=== PATIENT | female | born 1955 | race Caucasian/White ===

== ENCOUNTER → 2020-10-23 | Outpatient (CLI) | payer SELFPAY ==
--- NOTE | 2020-10-23 15:54 | XR ---
EXAMINATION TYPE: XR foot complete LT DATE OF EXAM: 10/23/2020 COMPARISON: NONE HISTORY: Pain TECHNIQUE: Three views are submitted. FINDINGS: The osseous structures are intact. There is no acute fracture or dislocation. There is narrowing o f all MTP joints with diffuse osteopenia. Narrowing of the tarsometatarsal joints noted. Calcaneal sp urs noted. IMPRESSION: 1. No acute fracture or dislocation. If symptoms persist, follow-up exam in 7 to 10 days could be ob tained. 2. Arthropathy. 3. Calcaneal spurs.
== END | disposition home or self-care (01) ==
LOC: RADXRMAIN 14:18
PROVIDERS: ATTEND Internal Medicine
DX: M77.32 Calcaneal spur, left foot (principal); M12.9 Arthropathy, unspecified
CPT/HCPCS: 84443

== ENCOUNTER → 2020-11-07 | Outpatient (CLI) | payer SELFPAY ==
[2020-11-07 20:56] LABS: Basophils # (A) 0.03 X 10*3/uL (0.00-0.10); Basophils % (A) 0.4 %; Eosinophils # (A) 0.27 X 10*3/uL (0.04-0.35); Eosinophils % (A) 3.4 %; HCT 40.3 % (37.2-46.3); HGB 12.5 g/dL (12.0-15.0); Lymphocytes # (A) 2.69 X 10*3/uL (0.90-5.00); Lymphocytes % (A) 33.4 %; MCH 28.6 pg (27.0-32.0); MCV 92.2 fL (80.0-97.0); Mean Platelet Volume 10.5 fL (9.5-12.2); Monocytes # (A) 0.67 X 10*3/uL (0.20-1.00); Monocytes % (A) 8.3 %; Neutrophils # (A) 4.37 X 10*3/uL (1.80-7.70); Neutrophils % (A) 54.3 %; Platelet Count 181 X 10*3/uL (140-440); RBC 4.37 X 10*6/uL (4.10-5.20); RDW 13.4 % (11.5-14.5); WBC 8.05 X 10*3/uL (4.50-10.00)
[2020-11-07 23:42] LABS: Hemoglobin A1C 6.5 % (4.0-6.0)
== END | disposition home or self-care (01) ==
LOC: LABT 14:14
PROVIDERS: ATTEND Internal Medicine
DX: E03.9 Hypothyroidism, unspecified (principal); R73.9 Hyperglycemia, unspecified
CPT/HCPCS: 36415; 83036; 84439; 85025

== ENCOUNTER 2020-11-08 12:37 | Emergency (ER) | payer OTHER ==
[2020-11-08 12:49] VITALS: BP 172/75; PULSE 53; RESP 17; TEMP 98.3
[2020-11-08] MEDS ORDERED: KETOROLAC 15 MG/ML 1 ML VIAL IM STA (13:11)
--- NOTE | 2020-11-08 14:00 | XR ---
Left foot HISTORY: Trauma and pain 3 views of the left foot correlated prior exam 10/23/2020 Lucency is present at the proximal fifth metatarsal, nondisplaced fracture is present. There is no di slocation. Soft tissue swelling is present. There is a plantar calcaneal spur. IMPRESSION: Proximal fifth metatarsal fracture.
--- NOTE | 2020-11-08 14:15 | ED ---
Lower Extremity Injury HPI - General Chief Complaint: Extremity Injury, Lower Stated Complaint: L foot injury Time Seen by Provider: 11/08/20 13:06 Source: patient, RN notes reviewed Mode of arrival: wheelchair Limitations: no limitations - History of Present Illness Initial Comments: Patient is a 65-year-old female that presents to emergency department complaining of left foot pain. She notes that she stepped in a hole while walking outside of her house in rolled her ankle. She notes that she is having pain on the lateral aspect over the third and fourth and fifth metatarsals of her foot. She denied any other symptoms or complaints. She was a well- appearing 65-year-old female no apparent distress. She noted that she did have full sensation and feeling in her left foot. She denied any decreased strength just decreased range of motion secondary to pain. She denied any chest pain shortness of breath headache nausea vomiting diarrhea constipation fever fatigue chills. - Related Data Home Medications Medication Instructions Recorded Confirmed Butalb/APAP/Caff 50-325-40Mg 1 tab PO Q4H PRN 10/11/15 10/11/15 [Fioricet 50-325-40] Cholecalciferol [Vitamin D3] 1,000 unit PO DAILY 10/11/15 10/11/15 Ibuprofen [Advil] 400 mg PO Q8HR PRN 10/11/15 10/11/15 Levothyroxine Sodium [Synthroid] 150 mcg PO DAILY 10/11/15 10/11/15 Meloxicam [Mobic] 7.5 mg PO DAILY 10/11/15 10/11/15 Omeprazole 20 mg PO HS 10/11/15 10/11/15 Sertraline HCl [Zoloft] 150 mg PO HS 10/11/15 10/11/15 Topiramate [Topamax] 25 mg PO BID 10/11/15 10/11/15 Previous Rx's Medication Instructions Recorded HYDROcodone/APAP 5-325MG [[place] 1 tab PO Q6HR PRN #16 tab 10/11/15 5-325] Ibuprofen [Motrin] 800 mg PO Q8HR PRN #21 tab 10/11/15 Ondansetron HCl [Zofran] 4 mg PO Q8HR PRN #12 tab 10/11/15 Tamsulosin HCl [Flomax] 0.4 mg PO DAILY #14 cap 10/11/15 Allergies Allergy/AdvReac Type Severity Reaction Status Date / Time No Known Allergies Allergy Verified 11/08/20 12:49 Review of Systems ROS Statement: Those systems with pertinent positive or pertinent negative responses have been documented in the HPI. ROS Other: All systems not noted in ROS Statement are negative. Past Medical History Past Medical History: Thyroid Disorder Additional Past Medical History / Comment(s): kidney stones, diverticulitis, migraines History of Any Multi-Drug Resistant Organisms: None Reported Past Surgical History: Cholecystectomy, Hysterectomy Additional Past Surgical History / Comment(s): left cataract, left breast biopsy, ectopic Past Psychological History: Depression Smoking Status: Former smoker Past Alcohol Use History: Rare Past Drug Use History: None Reported General Exam Limitations: no limitations General appearance: alert, in no apparent distress Head exam: Present: atraumatic, normocephalic, normal inspection Eye exam: Present: normal appearance, PERRL, EOMI. Absent: scleral icterus, conjunctival injection, periorbital swelling Neck exam: Present: normal inspection Respiratory exam: Present: normal lung sounds bilaterally. Absent: respiratory distress, wheezes, rales, rhonchi, stridor Cardiovascular Exam: Present: regular rate, normal rhythm, normal heart sounds. Absent: systolic murmur, diastolic murmur, rubs, gallop, clicks Left Foot/Toe exam: Present: normal inspection, tenderness (Over the fourth and fifth metatarsals.). Absent: full ROM (Secondary to pain), swelling, abrasion, laceration, ecchymosis, deformity, crepitus Neurological exam: Present: alert, oriented X3 Psychiatric exam: Present: normal affect, normal mood Skin exam: Present: warm, dry, intact, normal color. Absent: rash Course Vital Signs 11/08/20 12:39 Temperature 98.3 F Pulse Rate 53 L Respiratory 17 Rate Blood Pressure 172/75 O2 Sat by Pulse 100 Oximetry Medical Decision Making - Medical Decision Making 65-year-old female complaining of left foot pain after stepping in a hole and injuring it. X-ray of the left foot, 15 mg of Toradol ordered. X-ray of the foot shows a nondisplaced fracture of the fifth metatarsal small end. Patient be splinted and given crutches. Case discussed with Dr. Guillen, patient can follow-up with orthopedics in the next several days. - Radiology Data Radiology results: report reviewed, image reviewed X-ray of the left foot: Proximal fifth metatarsal fracture Disposition Clinical Impression: Fracture of fifth metatarsal bone of left foot Disposition: HOME SELF-CARE Condition: Stable Instructions (If sedation given, give patient instructions): Foot Fracture in Adults (ED) Additional Instructions: Please return to the Emergency Department if symptoms worsen or any other concerns. Follow-up with orthopedics in 1-2 days. Nonweightbearing. Keep splint on at the thumb with orthopedics. Is patient prescribed a controlled substance at d/c from ED?: No Referrals: Harish Ruth MD [Primary Care Provider] - 1-2 days Time of Disposition: 14:15
== END 2020-11-08 14:57 | disposition home or self-care (01) ==
LOC: EC 12:37
DX: S92.355A Nondisplaced fracture of fifth metatarsal bone, left foot, initial encounter for closed fracture (principal); F32.9 Major depressive disorder, single episode, unspecified; Z79.1 Long term (current) use of non-steroidal anti-inflammatories (NSAID); Z79.890 Hormone replacement therapy; Z79.899 Other long term (current) drug therapy; Z87.891 Personal history of nicotine dependence; X50.1XXA Overexertion from prolonged static or awkward postures, initial encounter; Y93.01 Activity, walking, marching and hiking
CPT/HCPCS: 73630; 99283; 96372; J1885

== ENCOUNTER → 2020-11-21 | Outpatient (CLI) | payer SELFPAY ==
[2020-11-22 04:15] LABS: African American GFR (CKD) 106.9 (60.0-200.0); Albumin 4.3 g/dL (3.80-4.90); Albumin/Globulin Ratio 1.72 (1.60-3.17); Anion Gap 7.7 mmol/L (4.00-12.00); BUN/Creat Ratio 37.14 Ratio (12.00-20.00); Calcium 9.7 mg/dL (8.7-10.3); Carbon Dioxide 29.3 mmol/L (21.6-31.8); Chol/HDL Ratio 4.55; Globulin 2.5 g/dL (1.6-3.3); LDL Cholesterol,Calculated 110.8 mg/dL (0.0-131.0); Non-African American GFR(CKD) 92.2 (60.0-200.0); Potassium 4.8 mmol/L (3.5-5.5); Total Bilirubin 0.4 mg/dL (0.2-1.2); Total Protein 6.8 g/dL (6.2-8.2); VLDL Calculation 63.2 mg/dL (5.00-40.00)
== END | disposition home or self-care (01) ==
LOC: LABWHC1 09:24
PROVIDERS: ATTEND Internal Medicine
DX: S92.352A Displaced fracture of fifth metatarsal bone, left foot, initial encounter for closed fracture (principal); E03.9 Hypothyroidism, unspecified; R73.9 Hyperglycemia, unspecified; X58.XXXA Exposure to other specified factors, initial encounter
CPT/HCPCS: 36415; 80053; 80061; 82306

== ENCOUNTER 2020-12-12 10:37 | Emergency (ER) | payer OTHER ==
[2020-12-12 10:45] VITALS: RESP 16; TEMP 98.2
[2020-12-12] MEDS ORDERED: MORPHINE SULFATE 4 MG/ML SYRINGE IVP STA (10:56)
--- NOTE | 2020-12-12 11:37 | XR ---
EXAMINATION TYPE: XR knee 4V RT DATE OF EXAM: 12/12/2020 COMPARISON: NONE HISTORY: Pain TECHNIQUE: Three views are submitted. FINDINGS: Diffuse osteopenia with depressed intra-articular lateral tibial plateau fracture. Arthropathy of the tricompartment spaces. Lipohemarthrosis involving the suprapatellar bursa. Well-corticated density a long the upper margin of the patella. Findings suspicious for a linear hairline fracture involving th e head of the fibula. IMPRESSION: 1. Intra-articular lateral tibial plateau depressed fracture with displacement. 2. Linear hairline fracture through the head of the fibula.
--- NOTE | 2020-12-12 11:40 | ED ---
Lower Extremity Injury HPI - General Chief Complaint: Extremity Injury, Lower Stated Complaint: Fall, Knee Injury Time Seen by Provider: 12/12/20 10:46 Source: patient, RN notes reviewed Mode of arrival: ambulatory Limitations: no limitations - History of Present Illness Initial Comments: Patient is a 65-year-old female that presents to emergency department complaining of right knee pain. EMS. She notes that she is here 45 weeks ago for a left foot Aquino fracture. She has been in a walking boot since then. She notes that today while stepping out of her door wall she missed the edge of the step fell down one step injuring her right knee. She notes that she does have a history of right knee fractures. She notes this feels very similar. She notes her pain was approximate 7-8 out of 10 with no relief. She did get 6 g of morphine from EMS. Patient was otherwise well-appearing. She denied any chest pain shortness breath headache nausea vomiting diarrhea constipation fever fatigue chills. - Related Data Home Medications Medication Instructions Recorded Confirmed Butalb/APAP/Caff 50-325-40Mg 1 tab PO Q4H PRN 10/11/15 10/11/15 [Fioricet 50-325-40] Cholecalciferol [Vitamin D3] 1,000 unit PO DAILY 10/11/15 10/11/15 Ibuprofen [Advil] 400 mg PO Q8HR PRN 10/11/15 10/11/15 Levothyroxine Sodium [Synthroid] 150 mcg PO DAILY 10/11/15 10/11/15 Meloxicam [Mobic] 7.5 mg PO DAILY 10/11/15 10/11/15 Omeprazole 20 mg PO HS 10/11/15 10/11/15 Sertraline HCl [Zoloft] 150 mg PO HS 10/11/15 10/11/15 Topiramate [Topamax] 25 mg PO BID 10/11/15 10/11/15 Previous Rx's Medication Instructions Recorded HYDROcodone/APAP 5-325MG [[place] 1 tab PO Q6HR PRN #16 tab 10/11/15 5-325] Ibuprofen [Motrin] 800 mg PO Q8HR PRN #21 tab 10/11/15 Ondansetron HCl [Zofran] 4 mg PO Q8HR PRN #12 tab 10/11/15 Tamsulosin HCl [Flomax] 0.4 mg PO DAILY #14 cap 10/11/15 Allergies Allergy/AdvReac Type Severity Reaction Status Date / Time No Known Allergies Allergy Verified 12/12/20 10:45 Review of Systems ROS Statement: Those systems with pertinent positive or pertinent negative responses have been documented in the HPI. ROS Other: All systems not noted in ROS Statement are negative. Past Medical History Past Medical History: Thyroid Disorder Additional Past Medical History / Comment(s): kidney stones, diverticulitis, migraines History of Any Multi-Drug Resistant Organisms: None Reported Past Surgical History: Cholecystectomy, Hysterectomy Additional Past Surgical History / Comment(s): left cataract, left breast biopsy, ectopic Past Psychological History: Depression Smoking Status: Former smoker Past Alcohol Use History: Rare Past Drug Use History: None Reported General Exam Limitations: no limitations General appearance: alert, in no apparent distress Head exam: Present: atraumatic, normocephalic, normal inspection Eye exam: Present: normal appearance, PERRL, EOMI. Absent: scleral icterus, conjunctival injection, periorbital swelling ENT exam: Present: normal exam, mucous membranes moist Neck exam: Present: normal inspection Respiratory exam: Present: normal lung sounds bilaterally. Absent: respiratory distress, wheezes, rales, rhonchi, stridor Cardiovascular Exam: Present: regular rate, normal rhythm, normal heart sounds. Absent: systolic murmur, diastolic murmur, rubs, gallop, clicks Right Knee exam: Present: normal inspection, tenderness (Generalized throughout mostly on the superior and bilateral aspects.), pain/laxity with valgus. Absent: full ROM (Secondary to pain), swelling, abrasion, laceration, ecchymosis, deformity, crepitus, dislocation, erythema, effusion, pain w/ pronation/supination Neurological exam: Present: alert, oriented X3 Psychiatric exam: Present: normal affect, normal mood Skin exam: Present: warm, dry, intact, normal color. Absent: rash Course Vital Signs 12/12/20 10:39 Temperature 98.2 F Pulse Rate 54 L Respiratory 16 Rate Blood Pressure 179/72 O2 Sat by Pulse 95 Oximetry Medical Decision Making - Medical Decision Making 65-year-old female with a right knee injury after falling down one step. X-ray right knee, 4 mg of morphine ordered. X-ray shows a intra-articular tibial plateau and a hairline linear fibular fracture of the right knee. Jim Oliver's physician psychiatric nursing assistant was consulted and noted that patient can either discharge home with follow-up outpatient with a knee immobilizer and crutches or standing the hospital. Patient wishes to discharge home with knee immobilizer and crutches as she takes care of her mother at home. Tylenol 3 starter pack will be given. Case discussed with Dr. Guillen, patient discharge home. - Radiology Data Radiology results: report reviewed, image reviewed X-ray right knee: Intra-articular lateral tibial plateau depressed fracture with displacement. Linear hairline fracture through the head of the fibula. Disposition Clinical Impression: Closed fracture of lateral portion of right tibial plateau, Fracture of head of right fibula Disposition: HOME SELF-CARE Condition: Stable Instructions (If sedation given, give patient instructions): Leg Fracture (ED) Additional Instructions: Please return to the Emergency Department if symptoms worsen or any other concerns. Follow-up with primary care 1-2 days. Follow-up with orthopedics in the next day. Nonweightbearing, use crutches. Take off his prescribed. Can take Motrin as needed. Is patient prescribed a controlled substance at d/c from ED?: No Referrals: Harish Ruth MD [Primary Care Provider] - 1-2 days Fili Oliver DO [Doctor of Osteopathic Medicine] - 1-2 days Time of Disposition: 12:23
[2020-12-12] MEDS ORDERED: ACET/COD 300 MG/30 MG STARTER PACK 6 TAB BTL PO STA (12:21)
--- NOTE | 2020-12-12 13:46 | CT ---
EXAMINATION TYPE: CT knee RT wo con DATE OF EXAM: 12/12/2020 COMPARISON: X-ray 12/12/2020 HISTORY: Tiial plateau fracture., Pain post fall. CT DLP: 126.6 mGycm Automated exposure control for dose reduction was used. FINDINGS: Lipohemarthrosis suprapatellar bursa and soft tissue edema noted. There is a depressed lateral tibial plateau fracture measuring about 6 mm and depression. Appears to be extension from the articular surface and of the proximal diaphysis of the tibia. Appears to be a d egree of comminution at the articular surface with a fragment seen on the sagittal view to be displac ed posteriorly. Arthropathy of the tricompartment spaces noted and there appears to be a hairline fracture through th e head and neck of the fibula with minimal displacement. IMPRESSION: 1. Depressed lateral tibial plateau displaced fracture 2. Hairline fracture head of the fibula
[2020-12-12 14:14] VITALS: BP 154/89; PULSE 64
== END 2020-12-12 14:15 | disposition home or self-care (01) ==
LOC: EC 10:37
DX: S82.121A Displaced fracture of lateral condyle of right tibia, initial encounter for closed fracture (principal); S82.831A Other fracture of upper and lower end of right fibula, initial encounter for closed fracture; E07.9 Disorder of thyroid, unspecified; F32.9 Major depressive disorder, single episode, unspecified; Z87.442 Personal history of urinary calculi; Z90.49 Acquired absence of other specified parts of digestive tract; Z90.710 Acquired absence of both cervix and uterus; Z87.891 Personal history of nicotine dependence; W10.8XXA Fall (on) (from) other stairs and steps, initial encounter
CPT/HCPCS: 99284; 96374; 73564; 73700; L1830; J2270

== ENCOUNTER → 2020-12-14 | Outpatient (CLI) | payer SELFPAY ==
--- NOTE | 2020-12-14 13:32 | US ---
EXAMINATION TYPE: US venous doppler duplex LE RT DATE OF EXAM: 12/14/2020 1:10 PM COMPARISON: NONE CLINICAL HISTORY: I80.9 PHLEBITIS AND THROMBOPHLEBITIS OF UNSPECIFIED SITE. SIDE PERFORMED: Right TECHNIQUE: The lower extremity deep venous system is examined utilizing real time linear array sonog aisha with graded compression, doppler sonography and color-flow sonography. VESSELS IMAGED: Common Femoral Vein Deep Femoral Vein Greater Saphenous Vein * Femoral Vein Popliteal Vein Small Saphenous Vein * Proximal Calf Veins (* superficial vessels) Right Leg: Negative for DVT IMPRESSION: Grayscale, color doppler, spectral doppler imaging performed of the deep veins of the lo wer extremities. There is normal flow, compressibility, vascular waveforms.
== END | disposition home or self-care (01) ==
LOC: RADUSWWP 12:40
PROVIDERS: ATTEND Orthopaedic Surgery
DX: I80.9 Phlebitis and thrombophlebitis of unspecified site (principal)

== ENCOUNTER → 2021-05-09 | Outpatient (CLI) | payer OTHER ==
[2021-05-09 20:03] LABS: T4, Free (Free Thyroxine) 1.18 ng/dL (0.800-1.800)
== END | disposition home or self-care (01) ==
LOC: LABWHC1 13:14
PROVIDERS: ATTEND Internal Medicine
DX: Z01.812 Encounter for preprocedural laboratory examination (principal); E11.9 Type 2 diabetes mellitus without complications; E03.9 Hypothyroidism, unspecified
CPT/HCPCS: 36415; 82043; 82570; 83036; 84439; 84443; 87086

== ENCOUNTER → 2021-05-09 | Outpatient (CLI) | payer OTHER ==
[2021-05-09 14:24] LABS: INR 0.9 (<1.2); Partial Thromboplastin Time 24.3 sec (22.0-30.0); Prothrombin Time 10.4 sec (9.0-12.0)
[2021-05-09 15:24] LABS: Appearance,Urine Clear (Clear); Bacteria,Urine Rare /hpf; Bilirubin,Urine Negative (Negative); Blood,Urine Small (Negative); Calcium Oxalate Crystals,Urine Occasional /hpf; Color,Urine Yellow; Glucose,Urine (UA) Negative (Negative); Ketones,Urine Negative (Negative); Leukocyte Esterase,Urine Moderate (Negative); Mucus,Urine Rare /hpf; Nitrite,Urine Negative (Negative); PH, Urine 5.5 (5.0-8.0); Protein,Urine Trace (Negative); RBC,Urine <1 /hpf (0-5); Specific Gravity,Urine 1.029 (1.001-1.035); Squamous Epithelial Cell,Urine <1 /hpf (0-4); Urobilinogen,Urine <2.0 mg/dL (<2.0); WBC,Urine 5 /hpf (0-5)
[2021-05-09 18:07] LABS: Basophils # (A) 0.03 X 10*3/uL (0.00-0.10); Basophils % (A) 0.4 %; Eosinophils # (A) 0.19 X 10*3/uL (0.04-0.35); Eosinophils % (A) 2.4 %; HCT 40.7 % (37.2-46.3); HGB 12.4 g/dL (12.0-15.0); Immature Grans, Automated 0.4 %; Lymphocytes # (A) 2.72 X 10*3/uL (0.90-5.00); Lymphocytes % (A) 34.4 %; MCH 27.7 pg (27.0-32.0); MCHC 30.5 g/dL (32.0-37.0); MCV 91.1 fL (80.0-97.0); Mean Platelet Volume 10.2 fL (9.5-12.2); Monocytes # (A) 0.49 X 10*3/uL (0.20-1.00); Monocytes % (A) 6.2 %; NRBC Per 100 WBC 0 /100 WBCS (0.0-0.0); Neutrophils # (A) 4.45 X 10*3/uL (1.80-7.70); Neutrophils % (A) 56.2 %; Platelet Count 196 X 10*3/uL (140-440); RBC 4.47 X 10*6/uL (4.10-5.20); RDW 14.3 % (11.5-14.5); WBC 7.91 X 10*3/uL (4.50-10.00)
[2021-05-09 18:16] LABS: Albumin 4.5 g/dL (3.8-4.9); Albumin/Globulin Ratio 1.76 (1.60-3.17); Anion Gap 11.2 mmol/L (10.00-18.00); BUN/Creat Ratio 31.52 Ratio (12.00-20.00); Blood Urea Nitrogen 23.7 mg/dL (9.0-27.0); Calcium 9.6 mg/dL (8.7-10.3); Carbon Dioxide 24.1 mmol/L (20.0-27.5); Globulin 2.5 g/dL (1.6-3.3); Non-African American GFR(CKD) 84.6 (60.0-200.0); Total Bilirubin 0.2 mg/dL (0.30-1.20)
== END | disposition home or self-care (01) ==
LOC: LABWHC1 13:10
PROVIDERS: ATTEND Orthopaedic Surgery
DX: Z01.812 Encounter for preprocedural laboratory examination (principal); M17.11 Unilateral primary osteoarthritis, right knee
CPT/HCPCS: 80053; 81001; 85025; 85610; 85730; 87070

== ENCOUNTER 2021-05-24 06:00 | Day surgery (SDC) | payer OTHER ==
[2021-05-21 13:28] VITALS: BMI 31.6
[~2021-05-24 06:00] MED LIST: ACETAMINOPHEN TAB 500 MG TAB PO PRN; DEXAMETHASONE SOD PHOSPHATE 10 MG/ML 1 ML VIAL IV PRN; DOCUSATE 100 MG CAP PO PRN; FAMOTIDINE 20 MG/2 ML VIAL IVP PRN; KETOROLAC 15 MG/ML 1 ML VIAL IVP PRN; LACTATED RINGERS 1,000 ML IV SCH; MIDAZOLAM 2 MG/2 ML VIAL IV PRN; ONDANSETRON 4 MG/2 ML VIAL IVP PRN; TRANEXAMIC ACID IN NACL,ISO-OS 1,000 MG in SALINE 1 100ML.BAG IVPB PRN; oxyCODONE ER 10 MG TAB.ER.12H PO PRN
[2021-05-24 06:30] VITALS: RESP 18; TEMP 97
[2021-05-24 06:46] LABS: Glucose,Whole Blood 119 mg/dL (75-99)
[2021-05-24] MEDS ORDERED: LACTATED RINGERS 1,000 ML IV ONE (06:56)
[2021-05-24] MEDS ORDERED: HYDROmorphone 0.5 MG/0.5 ML SYRINGE IVP PRN (07:00)
[2021-05-24] MEDS ORDERED: MIDAZOLAM 2 MG/2 ML VIAL IVP ONE (07:06)
[2021-05-24] MEDS ORDERED: fentaNYL (PF) 50 MCG/ML 2 ML AMP IVP ONE (07:07)
[2021-05-24 07:21] VITALS: BP 145/74; PULSE 63
[2021-05-24] MEDS ORDERED: TRANEXAMIC ACID 1,000 MG in SODIUM CHLORIDE 0.9% 100 ML IVPB ONE (07:27)
[2021-05-24] MEDS ORDERED: ROPIVACAINE/EPI/CLONIDINE/KET 50 ML SYRINGE MISCELLANE PRN (07:27)
--- NOTE | 2021-05-24 07:54 | XR ---
EXAMINATION TYPE: XR foot complete LT DATE OF EXAM: 05/24/2021 CLINICAL HISTORY: History of Aquino fracture with increasing lateral pain. TECHNIQUE: Portable Frontal, lateral, and oblique images of the left foot are obtained. COMPARISON: Left foot x-ray November 08, 2020 FINDINGS: There is incomplete healing of the transverse fracture base of fifth metatarsal. No new ac [place] displaced fracture is seen degenerative narrowing at base of first and second metatarsals redemon strated. Accessory ossicle near lateral base of the cuboid redemonstrated. Small superior and inferio r calcaneal spurs again seen. Flexion in the toes redemonstrated. The overlying soft tissue appears u nremarkable. IMPRESSION: There is incomplete healing or nonunion of the transverse fracture base of fifth metatar amanda. No new acute displaced fracture identified.
--- NOTE | 2021-05-24 08:33 | P.PN ---
Progress Note - Text Progress Note Date: 05/24/21 I met with the patient in preoperative holding prior to her elective right total knee replacement. In addition to having a prior right tibial plateau fracture the patient also had a left sided fifth metatarsal base Aquino fracture. At her last follow-up in my office the fracture appeared to have fully healed. This morning the patient is complaining of increasing pain in her left foot along the lateral border of the foot. She states it is hurting to walk. On my examination she has exquisite tenderness at the fifth metatarsal base. I ordered a stat x-ray which showed refracture of the fifth metatarsal base. I recommended canceling her right total knee replacement today given her increased pain and x-ray findings in the left with metatarsal base. We discussed my concern with her not being able to fully ambulate or put full weight on her left leg. The patient while upset that her knee replacement has been canceled understands. I will plan on seeing her in the office on Thursday or Thursday with my foot and ankle partner Dr. White to discuss how best to proceed.
--- NOTE | 2021-05-24 09:19 | P.ANPRN ---
Procedure Note - Anesthesia - Nerve Block Performed Right iPack Single Time Out Performed: Yes (705) Date of Procedure: 05/24/21 Procedure Start Time: 07:10 Procedure Stop Time: 07:13 Location of Patient: PreOp Indication: Acute Post-Operative Pain, Requested by Surgeon Specifically requested for management of pain by DrHermelinda: Emmanuel Infante Sedation Type: Sedate with meaningful contact maintained Preparation: Sterile Prep Position: Supine Catheter: None Needle Types: Pajunk Needle Gauge: 21 Ultrasound used to visualize needle placement: Yes Ultrasound used to observe medication spread: Yes Injectate: 0.5% Ropivacaine (see comment for volume) (15cc + 5cc nacl) Blood Aspirated: No Pain Paresthesia on Injection Noted: No Resistance on Injection: Normal Image Stored and Saved: Yes Events: Uneventful and Well Tolerated
--- NOTE | 2021-05-24 09:19 | P.ANPRN ---
Procedure Note - Anesthesia - Nerve Block Performed Right Adductor Canal Single Time Out Performed: Yes (705) Date of Procedure: 05/24/21 Procedure Start Time: :06 Procedure Stop Time: 07:09 Location of Patient: PreOp Indication: Acute Post-Operative Pain, Requested by Surgeon Specifically requested for management of pain by DrHermelinda: Emmanuel Infante Sedation Type: Sedate with meaningful contact maintained Preparation: Sterile Prep Position: Supine Catheter: None Needle Types: Pajunk Needle Gauge: 21 Ultrasound used to visualize needle placement: Yes Ultrasound used to observe medication spread: Yes Injectate: 0.5% Ropivacaine (see comment for volume) (15cc + 5cc nacl) Blood Aspirated: No Pain Paresthesia on Injection Noted: No Resistance on Injection: Normal Image Stored and Saved: Yes Events: Uneventful and Well Tolerated
== END 2021-05-24 08:37 | disposition home or self-care (01) ==
LOC: OR 06:00
PROVIDERS: ATTEND Orthopaedic Surgery
DX: M17.11 Unilateral primary osteoarthritis, right knee (principal); S82.141D Displaced bicondylar fracture of right tibia, subsequent encounter for closed fracture with routine healing; Z87.891 Personal history of nicotine dependence; E11.9 Type 2 diabetes mellitus without complications; E07.9 Disorder of thyroid, unspecified; F32.A Depression, unspecified
CPT/HCPCS: 27447; 73630; J2250; J1100; J2405; J3010; J1885

== ENCOUNTER 2021-06-07 06:22 | Day surgery (SDC) | payer OTHER ==
[2021-06-05 09:42] VITALS: BMI 32.1
[~2021-06-07 06:22] MED LIST changes: -ACETAMINOPHEN TAB 500 MG TAB PO PRN; -DEXAMETHASONE SOD PHOSPHATE 10 MG/ML 1 ML VIAL IV PRN; -DOCUSATE 100 MG CAP PO PRN; -FAMOTIDINE 20 MG/2 ML VIAL IVP PRN; -KETOROLAC 15 MG/ML 1 ML VIAL IVP PRN; +LIDOCAINE 1% (10MG/ML) FOR IV START INTRADERMA PRN; -MIDAZOLAM 2 MG/2 ML VIAL IV PRN; -ONDANSETRON 4 MG/2 ML VIAL IVP PRN; -TRANEXAMIC ACID IN NACL,ISO-OS 1,000 MG in SALINE 1 100ML.BAG IVPB PRN; -oxyCODONE ER 10 MG TAB.ER.12H PO PRN
[2021-06-07 07:00] LABS: Glucose,Whole Blood 139 mg/dL (75-99)
[2021-06-07] MEDS ORDERED: HYDROmorphone 0.5 MG/0.5 ML SYRINGE IVP PRN (07:00)
[2021-06-07] MEDS ORDERED: ONDANSETRON 4 MG/2 ML VIAL ONE (07:16)
[2021-06-07] MEDS ORDERED: DEXAMETHASONE SOD PHOSPHATE 4 MG/ML 1 ML VIAL IVP ONE (07:27)
[2021-06-07] MEDS ORDERED: PROPOFOL 10 MG/ML 20 ML VIAL IV ONE (07:51)
[2021-06-07] MEDS ORDERED: fentaNYL (PF) 50 MCG/ML 2 ML AMP ONE (07:51)
[2021-06-07] MEDS ORDERED: MIDAZOLAM 2 MG/2 ML VIAL ONE (07:51)
[2021-06-07] MEDS ORDERED: LIDOCAINE 1% INJ 10MG/ML (20 ML MDV) ONE (07:51)
[2021-06-07] MEDS ORDERED: BUPIVACAINE (PF) 0.25% 30 ML VIAL MISCELLANE ONE (07:58)
[2021-06-07 08:54] VITALS: TEMP 98.4
[2021-06-07 09:03] VITALS: RESP 16
--- NOTE | 2021-06-07 09:13 | P.OP ---
Date of Procedure: 06/07/21 Preoperative Diagnosis: Fifth metatarsal fracture delayed union left foot Postoperative Diagnosis: Same Procedure(s) Performed: Open reduction with internal fixation left fifth metatarsal fracture Implants: 45 mm x 4.5 mm [facility] Aquino fx screw Anesthesia: OTTONIEL Surgeon: Fredrick White Estimated Blood Loss (ml): 1 Pathology: none sent Condition: stable Disposition: PACU Description of Procedure: The patient was brought into the operative room placed on table supine position. Timeout was taken to confirm correct patient identifiers, correct site of surgery, correct procedure. When the room was in agreement with the timeout, the patient was induced and placed under general anesthesia. 20 mL of 0.25% Marcaine was injected as a left ankle block. A well-padded tourniquet was placed on the left ankle. A bump was placed underneath the left hip to internally rotate the left leg and then the left foot was prepped and draped in usual manner. The foot was exsanguinated with an Esmarch bandage and the tourniquet inflated to 250 mmHg. Under fluoroscopic visualization the location of the fracture was identified with a metallic marker. A small incision was made on the lateral side of the fifth metatarsal at the level of the fracture. Blunt dissection was performed to the soft tissue down to level of the fracture. A 2.0 mm drill bit was then used to drill through the nonhealing fracture site. Then an osteotome was used to resect the nonunion tissue to the medial cortex. It was done in a way to create a wedge type osteotomy so that the bone ends could be brought back together. Therefore the fifth metatarsal was manipulated under live fluoroscopic visualization to make sure that the fracture would reduced which it did. Under fluoroscopic visualization the area was marked for the placement of the skin incision for the screw insertion proximal to the fifth metatarsal base. Incision was made in that area careful to identify, avoid, and retract any neurovascular structures and cauterize any bleeding vessels. Blunt dissection was continued down to the base of the fifth metatarsal. The guidewire for the Aquino fracture screw was then inserted at the base of the fifth metatarsal. Alignment of the wire was confirmed both on AP and lateral views. It was then advanced into the base of the fifth metatarsal approximate 1-1.5 cm. Then fluoroscopy was used to make sure that the trajectory was correct. Then the K wire was slowly advanced to the fracture line. Again fluoroscopy was used to check the trajectory. When the trajectory was satisfactory the wire was advanced past the fracture under oscillating power. T hen it was advanced into the medullary canal. Fluoroscopy was used to make sure that the wire was in the medullary canal both on the AP oblique and lateral views. The drill was then inserted over the wire and drilled to the level the fracture. Once the drill bit breach the fracture line, the drill was then switched oscillating and then the drill bit was advanced past the fracture and into the medullary canal. Fluoroscopy was used to make sure that the drill was in the medullary canal both on AP and lateral views. The drill was removed and the wire reinserted and then a 4.5 mm tap was inserted and advanced until the threads breach the proper depth. The guidewire was inserted and the checked for correct screw size. The guidewire was removed and then 1.5 mL Augment was placed within the medullary canal and also extruded out the area of the fracture line. The guidewire was removed and then a 4.5 mm x 45 mm screw was inserted inserted and advanced, while holding the fracture reduced, until the threads were distal to the fracture line and there was compression of the fracture. Then the screw head was adjusted so that the medial chamfer was in line with the cuboid. Final fluoroscopic imaging showed the screw within the medullary canal both in AP lateral and oblique views, as well as compression of the fracture line. Wound irrigated with sterile saline. Subcu closure on the proximal incision was done with 4-0 Monocryl skin closure done with 3-0 nylon. Adaptic, gauze and Kerlix are applied to the left foot. Tourniquet was released and capillary refill return to all digits on the left foot. The patient was placed in a below-knee fracture boot ankle neutral position. Anesthesia was reversed and the patient was taken recovery with vital signs stable
[2021-06-07 11:00] VITALS: PULSE 56
[2021-06-07 11:01] VITALS: BP 152/76
== END 2021-06-07 10:55 | disposition home or self-care (01) ==
LOC: OR 06:22
PROVIDERS: ATTEND Podiatrist
DX: S92.352A Displaced fracture of fifth metatarsal bone, left foot, initial encounter for closed fracture (principal); X58.XXXA Exposure to other specified factors, initial encounter; E11.9 Type 2 diabetes mellitus without complications; F32.A Depression, unspecified; E03.9 Hypothyroidism, unspecified; K21.9 Gastro-esophageal reflux disease without esophagitis; Z88.1 Allergy status to other antibiotic agents; Z90.710 Acquired absence of both cervix and uterus; Z87.891 Personal history of nicotine dependence
CPT/HCPCS: 28322; C1713 ×2; J2250; J1100; J0690; J2405; J2001; J3010; J2704

== ENCOUNTER → 2021-08-06 | Outpatient (CLI) | payer OTHER ==
--- NOTE | 2021-08-07 07:03 | US ---
EXAMINATION TYPE: US kidneys/renal and bladder DATE OF EXAM: 08/06/2021 COMPARISON: NONE CLINICAL HISTORY: N39.0 URINARY TRACT INFECTION, SITE NOT SPECIFIED. UTI's, h/o renal stones EXAM MEASUREMENTS: Right Kidney: 10.3 x 4.4 x 5.2 cm Left Kidney: 11.5 x 4.5 x 5.9 cm Right Kidney: 0.9cm mid pole stone seen Left Kidney: 0.7cm mid pole stone seen Bladder: wnl Hydronephrosis. IMPRESSION: Bilateral nonobstructing renal calculi. Lobulation of the left renal cortex. Recommend CT scan for fu rther evaluation.
== END | disposition home or self-care (01) ==
LOC: RADUSWWP 16:02
PROVIDERS: ATTEND Internal Medicine
DX: N20.0 Calculus of kidney (principal)
CPT/HCPCS: 76770

== ENCOUNTER → 2021-08-12 | Outpatient (CLI) | payer OTHER ==
[2021-08-12 12:24] LABS: INR 0.9 (<1.2); Partial Thromboplastin Time 23.1 sec (22.0-30.0); Prothrombin Time 10.3 sec (9.0-12.0)
[2021-08-12 17:55] LABS: HCT 41.8 % (37.2-46.3); HGB 12.8 g/dL (12.0-15.0); MCH 27.8 pg (27.0-32.0); MCHC 30.6 g/dL (32.0-37.0); MCV 90.9 fL (80.0-97.0); Mean Platelet Volume 10.3 fL (9.5-12.2); NRBC Per 100 WBC 0 /100 WBCS (0.0-0.0); Platelet Count 208 X 10*3/uL (140-440); RDW 14.2 % (11.5-14.5); WBC 8.42 X 10*3/uL (4.50-10.00)
[2021-08-12 18:24] LABS: African American GFR (CKD) 108.7 (60.0-200.0); Albumin 4.5 g/dL (3.8-4.9); Albumin/Globulin Ratio 2.01 (1.60-3.17); Anion Gap 11.1 mmol/L (10.00-18.00); BUN/Creat Ratio 40.15 Ratio (12.00-20.00); Blood Urea Nitrogen 26.1 mg/dL (9.0-27.0); Calcium 9.6 mg/dL (8.7-10.3); Carbon Dioxide 23.7 mmol/L (20.0-27.5); Globulin 2.2 g/dL (1.6-3.3); Non-African American GFR(CKD) 93.8 (60.0-200.0); Potassium 4.3 mmol/L (3.5-5.5); Total Bilirubin 0.2 mg/dL (0.30-1.20); Total Protein 6.8 g/dL (6.2-8.2)
== END | disposition home or self-care (01) ==
LOC: LABPAT 11:13
PROVIDERS: ATTEND Orthopaedic Surgery
DX: Z01.812 Encounter for preprocedural laboratory examination (principal); M17.11 Unilateral primary osteoarthritis, right knee
CPT/HCPCS: 80053; 85027; 85610; 85730; 87070

== ENCOUNTER → 2021-08-12 | Outpatient (CLI) | payer OTHER ==
[2021-08-12 18:34] LABS: T4, Free (Free Thyroxine) 1.07 ng/dL (0.800-1.800); Uric Acid 4.9 mg/dL (2.9-7.7)
== END | disposition home or self-care (01) ==
LOC: LABWHC1 11:15
PROVIDERS: ATTEND Internal Medicine
DX: E03.9 Hypothyroidism, unspecified (principal); E11.9 Type 2 diabetes mellitus without complications; N20.0 Calculus of kidney
CPT/HCPCS: 36415; 83036; 84439; 84443; 84550

== ENCOUNTER 2021-08-23 12:07 | Day surgery (SDC) | payer OTHER ==
[2021-08-20 13:54] VITALS: BMI 31.6
[~2021-08-23 12:07] MED LIST changes: +ACETAMINOPHEN TAB 500 MG TAB PO PRN; +DEXAMETHASONE SOD PHOSPHATE 10 MG/ML 1 ML VIAL IV PRN; +DOCUSATE 100 MG CAP PO PRN; +FAMOTIDINE 20 MG/2 ML VIAL IVP PRN; +KETOROLAC 15 MG/ML 1 ML VIAL IVP PRN; -LACTATED RINGERS 1,000 ML IV SCH; -LIDOCAINE 1% (10MG/ML) FOR IV START INTRADERMA PRN; +ONDANSETRON 4 MG/2 ML VIAL IVP PRN; +ROPIVACAINE/EPI/CLONIDINE/KET 50 ML SYRINGE MISCELLANE PRN; +TRANEXAMIC ACID IN NACL,ISO-OS 1,000 MG in SALINE 1 100ML.BAG IVPB PRN; +VANCOMYCIN 1,000 MG in SODIUM CHLORIDE 0.9% 250 ML IVPB PRN; +oxyCODONE ER 10 MG TAB.ER.12H PO PRN
[2021-08-23] MEDS ORDERED: LIDOCAINE 1% (10MG/ML) FOR IV START INTRADERMA PRN (12:17)
[2021-08-23] MEDS ORDERED: MIDAZOLAM 2 MG/2 ML VIAL IV PRN (12:17)
[2021-08-23] MEDS ORDERED: HYDROmorphone 0.5 MG/0.5 ML SYRINGE IVP PRN ×3 (12:17→17:17)
[2021-08-23] MEDS ORDERED: DEXAMETHASONE SOD PHOSPHATE 4 MG/ML 1 ML VIAL IV ONE (12:17)
[2021-08-23] MEDS ORDERED: ONDANSETRON 4 MG/2 ML VIAL IVP ONE (12:17)
[2021-08-23] MEDS: LACTATED RINGERS 1,000 ML IV SCH ×2 (12:54→14:06)
[2021-08-23] MEDS ORDERED: LIDOCAINE 1% (10MG/ML) FOR IV START SQ ONE (12:55)
[2021-08-23 12:58] LABS: Glucose,Whole Blood 103 mg/dL (70-110)
[2021-08-23] MEDS ORDERED: MIDAZOLAM 2 MG/2 ML VIAL IV ONE (13:17)
[2021-08-23] MEDS ORDERED: PROPOFOL 10 MG/ML 20 ML VIAL IV ONE ×2 (14:04)
[2021-08-23] MEDS ORDERED: DEXAMETHASONE SOD PHOSPHATE 4 MG/ML 1 ML VIAL ONE ×2 (14:04)
[2021-08-23] MEDS ORDERED: ROCURONIUM 10 MG/ML (5 ML VIAL) IV ONE ×2 (14:04)
[2021-08-23] MEDS ORDERED: KETAMINE 10 MG/ML 20 ML VIAL ONE ×2 (14:04)
[2021-08-23] MEDS ORDERED: TRANEXAMIC ACID IN NACL,ISO-OS 1,000 MG/100 ML BAG ONE (14:04)
[2021-08-23] MEDS ORDERED: NEOSTIGMINE 1 MG/ML 10 ML VIAL ONE ×2 (14:04)
[2021-08-23] MEDS ORDERED: fentaNYL (PF) 50 MCG/ML 2 ML AMP ONE ×2 (14:04)
[2021-08-23] MEDS ORDERED: SUCCINYLCHOLINE CHLORIDE 100 MG/5 ML SYR IV ONE ×2 (14:04)
[2021-08-23] MEDS ORDERED: MIDAZOLAM 2 MG/2 ML VIAL ONE ×2 (14:04)
[2021-08-23] MEDS ORDERED: GLYCOPYRROLATE 0.2 MG/ML 2 ML VIAL ONE ×2 (14:04)
[2021-08-23] MEDS ORDERED: LIDOCAINE 2% INJ 20 MG/ML (2 ML VIAL) ONE ×2 (14:04)
[2021-08-23] MEDS ORDERED: PHENYLEPHRINE-0.9% NACL SYG 1,000 MCG/10 ML SYRINGE ONE ×2 (14:04)
[2021-08-23] MEDS ORDERED: ROPIVACAINE 5 MG/ML 30 ML VIAL ONE ×2 (14:04)
[2021-08-23] MEDS ORDERED: TRANEXAMIC ACID IN NACL,ISO-OS 1,000 MG in SALINE 1 100ML.BAG IVPB ONE (14:54)
[2021-08-23] MEDS ORDERED: LACTATED RINGERS 1,000 ML IV ONE (17:00)
[2021-08-23] MEDS ORDERED: HYDROcodone/APAP 5-325MG 1 EACH TAB PO PRN (17:17)
[2021-08-23] MEDS ORDERED: HYDROmorphone 1 MG/ML 1 ML SYRINGE IVP PRN (17:17)
[2021-08-23] MEDS ORDERED: NALOXONE 0.4 MG/ML 1 ML VIAL IV PRN (17:17)
[2021-08-23] MEDS ORDERED: ONDANSETRON 4 MG/2 ML VIAL IVP PRN (17:17)
[2021-08-23] MEDS ORDERED: hydrOXYzine pamoate 25 MG CAP PO PRN (17:17)
--- NOTE | 2021-08-23 17:26 | P.OP ---
Date of Procedure: 08/23/21 Preoperative Diagnosis: 1. Right knee osteoarthritis and recent right tibial plateau fracture 2. History of multiple fragility fractures 3. Osteopenia Postoperative Diagnosis: Same Procedure(s) Performed: Right total knee arthroplasty Implants: 1. Barnard triathlon size 2 CR femur 2. Sherice triathlon size 2 universal tibial baseplate with stem to use a 10 x 100 mm stem (a tibial stem was used given the patient's previous tibial plateau fracture ) 3. Barnard triathlon size #2 , 11 mm CS polyethylene liner 4. Sherice triathlon 32 mm asymmetric all poly-patella Anesthesia: GETA Surgeon: Emmanuel Infante Coil Inspector #1: Gali Verma Estimated Blood Loss (ml): 100 IV fluids (ml): 1,200 Pathology: none sent Condition: stable Disposition: PACU Indications for Procedure: The patient is very pleasant 66-year-old female with a medical history significant for multiple fragility fractures. The patient sustained both a left Aquino fracture and a right tibial plateau fracture last year. She was initially managed nonsurgically for both injuries. She had pre-existing arthritis in her right knee. Due to the minimal amount of displacement and her tibial plateau fracture I recommended putting the fracture healed in proceeding with a total knee arthroplasty if she had symptoms given her moderate to severe degenerative changes. The patient also required surgical fixation of her left Aquino fracture. Once this healed we discussed treatment of her knee pain secondary to her arthritis and plateau fracture. Her x-rays showed a healed plateau fracture and severe degenerative changes. I recommended a total knee replacement using a stemmed tibial component. We discussed the potential risks and complications of surgery including but certainly not limited to risk of anesthesia, superficial infection, deep infection, periprosthetic joint infection, intraoperative fracture, postoperative fracture, instability, aseptic loosening, stiffness, extensor mechanism problems, continued or worsened pain, need for further surgery including revision surgery, DVT, PE, and inability to regain preinjury level of function, generalized to satisfaction of surgical outcome, medical complications and possibly loss of life or limb. The patient voiced understanding of these potential complications and also acknowledged other less common locations. She provided both her verbal and written consent to go forward with surgery. Description of Procedure: The patient was identified in preoperative holding and the correct operative extremity was verified and marked with a marker. I reviewed the consent form with the patient at length. All of their questions were answered. The patient was given a block by anesthesia. They were then brought back to the operating room. They were transferred onto the operating room table where a general anesthetic, preoperative antibiotics, and tranexamic acid were administered by anesthesia. A tourniquet was applied to the proximal aspect of the operative extremity. The contralateral extremity was padded under the heel and secured to the operating room table with a nonsterile blue towel and tape. The ipsilateral arm was carefully draped across the patient's chest and secured with a pillow and foam. A post was applied over the lateral aspect of the ipsilateral thigh and a bolster was placed under the ipsilateral foot. I verified that the operative extremity was stable and the knee was flexed to 90. The operative extremity was then placed in a leg rush, nonsterile drapes were applied, and the extremity was prepped and draped sterilely in the standard sterile fashion. Prior to starting surgery timeout was performed identifying the correct patient, operative extremity, and procedure. The leg was then elevated, exsanguinated with an Esmarch bandage, and the tourniquet was inflated. An anterior midline incision was made sharply with a scalpel. Once I had dissected deep to the superficial fascial layer medial and lateral flaps were elevated. A medial parapatellar arthrotomy was created. Upon opening the knee joint there were diffuse arthritic changes in all 3 compartments. The anterior horn of the medial meniscus were sharply released and a medial release was performed around the posterior medial corner of the knee to facilitate retractor placement. The fat pad was excised with electrocautery. The patella was found to be severely arthritic and a provisional cut was made with a sagittal saw to facilitate mobilization of the extensor mechanism during the procedure. Remnants of the ACL and PCL were then excised from the notch. 4 mm pins were then placed within the incision in the medial distal femur and proximal tibia. Arrays were applied to the pins and I verified they were completely tightened. The knee was then registered with the PharmatrophiX robot and manipulations in implant position were made to balance the knee and opitmize implant position. Using the PharmatrophiX robotic saw all cuts were made in accordance with our plan. After all bony fragments had been removed the cuts were verified with the planar probe. The tibia was then subluxed forward and sized. The knee was brought into flexion and a lamina airport location manager was placed to allow removal of the meniscal remnants both medially and laterally as well as posterior osteophytes. Local anesthetic was then infiltrated around the joint capsule. Trial implants were then placed within the knee. Range of motion and collateral ligament tension was then evaluated. Adjustments in implant size and position were then made accordingly. Once the knee was felt to be appropriately balanced the Felipe pins were removed. The patella was then recut, sized, and punched. A trial patellar button was then placed. With the trial components in place, the patella tracked midline. The femur was then drilled and the trial component removed. The trial tibial component was then appropriately rotated, pinned, and prepared for the keel. All trial components were then removed from the knee. The knee was thoroughly irrigated with pulsatile lavage. Cement was prepared via vacuum mixing in a bowl on the back table. I then hand pressurized cement into the femur and tibia and placed the implants beginning with the tibial base tray and poly liner, femoral component, and finally the patellar button. All extruded cement was removed including from the pin sites. Once the cement had hardened the knee was evaluated one final time with the final polyethylene liner in place. The knee had full extension and flexion and felt stable to varus and valgus stress throughout the arc of motion. The tourniquet was released and with the tourniquet down the patella tracked midline. All bleeders were controlled with electrocautery. The knee was then soaked for 3 minutes with a dilute Betadine soak. The knee was thoroughly irrigated using 3 L of sterile saline and pulsatile lavage. The extensor mechanism was then reapproximated using pop off Vicryl sutures followed by a running barbed suture. The knee was then closed in layers with a 0 strata fix for the deep fascial layer, 2-0 strata fix for the superficial subcutaneous layer and Monocryl and Steri-Strips for the skin. A sterile dressing and drain sponge were applied. I verified that all instrument, sponge, and sharp counts were correct. The patient was then transferred off the operating room table, extubated, and brought to recovery having tolerated the procedure well. Gali Verma PA-C was required as a skilled personalized living assistant due to the complexity of the procedure for patient positioning, draping, retraction, placement of hardware, and closure of wound. PLAN: The patient can weight-bear as tolerated on the operative extremity. DVT prophylaxis with aspirin 81 mg twice a day based on preoperative risk stratification. Follow-up in the office in 2 weeks for wound check and x-rays of the knee including an AP and lateral.
[2021-08-23] MEDS ORDERED: hydrALAZINE HCL 20 MG/ML 1 ML VIAL IV ONE (17:27)
[2021-08-23 17:32] LABS: Glucose,Whole Blood 198 mg/dL (70-110)
--- NOTE | 2021-08-23 18:19 | XR ---
EXAMINATION TYPE: XR knee limited RT DATE OF EXAM: 08/23/2021 5:26 PM INDICATION: Patient age:Female; 66 years old; Reason for study: post-op; COMPARISON: Right knee 12/12/2020 TECHNIQUE: The Right knee(s) was examined in 3 projections. FINDINGS: Postop total right arthroplasty changes with hardware intact. There is postoperative dangelo ges to the joint space with lucencies suggestive of intra-articular air. Hardware appears intact. No evidence of acute fracture. IMPRESSION: Status post right total knee arthroplasty with hardware intact. No evidence of fracture.
[2021-08-23] MEDS ORDERED: SENNOSIDES-DOCUSATE SODIUM 1 EACH TAB PO SCH (21:00)
[2021-08-23] MEDS: ASPIRIN 81 MG PO SCH (21:59)
--- NOTE | 2021-08-24 00:21 | P.CONS ---
History of Present Illness - Reason for Consult Consult date: 08/23/21 (Delayed charting due to patient care) - History of Present Illness Patient is a 66-year-old female with a PMH of type II DM, hypothyroidism, and right knee osteoarthritis who was admitted for an elective total right knee r eplacement. The patient underwent the procedure earlier today with no immediate postoperative complications. She was seen on the surgical unit postoperatively. She reported excellent control of her pain at the time of interview, rated as a 0 out of 10 at rest. She denied any additional complaints. She has not passed typhlitis R had a bowel movement at time of interview. She denied extremity chest discomfort, shortness of breath, sore throat, nausea, vomiting, abdominal pain, diarrhea. Denies fever, chills, cough. Review of systems: Pertinent positives and negatives as discussed in HPI, a complete review of systems was performed and all other systems are negative. Physical examination: General: non toxic, no distress, appears at stated age, obese Derm: no unusual rashes/lesions, warm Head: atraumatic, normocephalic, symmetric Eyes: EOMI, no lid lag, anicteric sclera, pupils equal round reactive to light ENT: Nose and ears atraumatic Neck: No cervical lymphadenopathy, trachea midline, supple Mouth: no lip lesion, mucus membranes moist Cardiovascular: S1S2 reg, no murmur, positive dorsalis pedis pulse bilateral, no edema Lungs: CTA bilateral, no rhonchi, no rales, no accessory muscle use Abdominal: soft, nontender to palpation, no guarding Ext: No gross muscle atrophy, no contractures, right knee dressing in place clean and dry Neuro: CN II-XI grossly intact, no gross focal neuro deficits Psych: Alert, oriented, appropriate affect Assessment/plan Chronic conditions: Type II DM, hypothyroidism -Insulin sliding scale and blood glucose monitoring -Continue with home Synthroid dose Status post right total knee replacement -Defer management including DVT prophylaxis and pain control to the primary surgery service Past Medical History Past Medical History: Diabetes Mellitus, GERD/Reflux, Osteoarthritis (OA), Thyroid Disorder Additional Past Medical History / Comment(s): kidney stones., UTI's, di verticulitis, migraines, recent uti with tx. History of Any Multi-Drug Resistant Organisms: Other MDRO Past Surgical History: Cholecystectomy, Hysterectomy Additional Past Surgical History / Comment(s): left cataract, right breast biopsy, ectopic , orif left foot 5th metotarsal fx (june 2021) Past Anesthesia/Blood Transfusion Reactions: No Reported Reaction Past Psychological History: Depression Smoking Status: Former smoker Past Alcohol Use History: Rare Additional Past Alcohol Use History / Comment(s): quit smoking 2008, hx of a couple cigarettes / day. Past Drug Use History: None Reported - Past Family History Father Family Medical History: Cancer Medications and Allergies Home Medications Medication Instructions Recorded Confirmed Type Levothyroxine Sodium [Synthroid] 150 mcg PO QAM 10/11/15 08/23/21 History Meloxicam [Mobic] 7.5 mg PO DAILY 10/11/15 08/20/21 History Sertraline HCl [Zoloft] 150 mg PO HS 10/11/15 08/23/21 History metFORMIN HCL [Glucophage] 500 mg PO BID 12/12/20 08/23/21 History Acetaminophen [Tylenol Extra 1,000 mg PO Q4-6H PRN 05/21/21 08/23/21 History Strength] Butalb/Acetaminophen/Caffeine 1 - 2 cap PO Q4HR PRN 05/21/21 08/23/21 History [Fioricet 50-300-40 mg Capsule] Calcium Carbonate [Calcium] 600 mg PO DAILY 05/21/21 08/23/21 History Omeprazole [PriLOSEC] 20 mg PO 1200 05/21/21 08/23/21 History Aspirin 81 mg PO BID 30 Days #60 tab 08/23/21 Rx Diclofenac Sodium [Voltaren] 75 mg PO BID 30 Days #60 tab 08/23/21 Rx Docusate [Colace] 100 mg PO BID #60 capsule 08/23/21 Rx HYDROcodone/APAP 5-325MG [Mcgregor 1 - 2 tab PO Q6HR PRN 7 Days #40 08/23/21 Rx 5-325] tab Omeprazole 40 mg PO DAILY 30 Days #30 cap 08/23/21 Rx Allergies Allergy/AdvReac Type Severity Reaction Status Date / Time sulfamethoxazole Allergy Severe Itching Verified 08/23/21 12:24 [From Bactrim] trimethoprim [From Bactrim] Allergy Severe Itching Verified 08/23/21 12:24 Physical Exam Vitals: Vital Signs Temp Pulse Resp BP Pulse Ox 08/23/21 18:02 56 L 16 161/62 100 08/23/21 17:47 50 L 16 145/62 98 08/23/21 17:32 48 L 16 187/72 95 08/23/21 17:18 47 L 16 199/84 100 08/23/21 17:10 55 L 16 191/85 100 08/23/21 13:29 58 L 16 152/70 100 08/23/21 12:33 97.1 F L 60 16 160/74 95 Intake and Output 08/23/21 08/23/21 08/24/21 14:59 22:59 06:59 Intake Total 1050 400 Output Total 450 Balance 1050 -50 Intake: IV 1050 400 Output: Urine 350 Estimated Blood Loss 100 Other: Weight 86 kg 86 kg Results Labs: Abnormal Lab Results - Last 24 Hours (Table) 08/23/21 Range/Units 17:31 POC Glucose (mg/dL) 198 H (70-110) mg/dL
[2021-08-24] MEDS: HYDROcodone/APAP 5-325MG 1 EACH TAB PO PRN ×2 (04:52→10:41)
[2021-08-24] MEDS ORDERED: LEVOTHYROXINE 75 MCG TAB PO SCH (06:30)
[2021-08-24] MEDS ORDERED: PANTOPRAZOLE 40 MG TABLET PO SCH (07:30)
[2021-08-24 07:46] LABS: Glucose,Whole Blood 242 mg/dL (70-110)
[2021-08-24] MEDS: INSULIN ASPART (NovoLOG) 100 UNIT/ML VIAL SQ SCH ×2 (07:59→11:56)
[2021-08-24] MEDS: ASPIRIN 81 MG PO SCH (08:00)
[2021-08-24 09:13] VITALS: BP 128/66; PULSE 51; RESP 18; TEMP 98.9
[2021-08-24 09:22] LABS: African American GFR (CKD) >90 (>60 ml/min/1.73 sqM); Anion Gap 8 mmol/L; Blood Urea Nitrogen 20 mg/dL (7-17); Calcium 8.6 mg/dL (8.4-10.2); Carbon Dioxide 23 mmol/L (22-30); Chloride 105 mmol/L (98-107); Glucose 198 mg/dL (74-99); Non-African American GFR(CKD) >90 (>60 ml/min/1.73 sqM); Potassium 4.2 mmol/L (3.5-5.1); Sodium 136 mmol/L (137-145)
--- NOTE | 2021-08-24 09:36 | P.DS ---
Providers Expected date of discharge: 08/24/21 Attending physician: Emmanuel Infante Consults: 08/23/21 17:22 Consult Physician Routine Consulting Provider: Forrest Castillo Consult Reason/Comments: medical management Do you want consulting provider notified?: Yes Primary care physician: Harish Ruth MD - Discharge Diagnosis(es) (1) Primary osteoarthritis of right knee Current Visit: Yes Status: Acute (2) Status post right knee replacement Current Visit: Yes Status: Acute Hospital Course: This is a pleasant 66-year-old female last seen in our office with complaints of right knee pain. Patient has known history of degenerative arthritis of the right knee and presented to discuss options. After discussion and consideration, patient elected to proceed with a total knee arthroplasty of the right knee. The patient was seen preoperatively and medically cleared for surgery by her primary care physician. The patient was admitted to [facility] and underwent right total knee arthroplasty on 08/23/[address] Infante. The procedure was performed without complications or sequelae. The patient has done well postoperatively. The patient was seen and evaluated at bedside today and denies any new complaints. Pain is reasonably controlled. Dressing is clean dry and intact. Calf is soft and nontender. The patient has full foot and ankle motion without difficulty. Patient's right lower extremity is neurovascular intact. Patient is orthopedically stable for discharge to home today. Pertinent Studies: Laboratory Tests 08/24/21 08/24/21 07:39 07:45 Sodium 136 L BUN 20 H Glucose 198 H POC Glucose (mg/dL) 242 H Patient Condition at Discharge: Stable Plan - Discharge Summary Discharge Rx Participant: No New Discharge Prescriptions: New Aspirin 81 mg PO BID 30 Days #60 tab Docusate [Colace] 100 mg PO BID #60 capsule Omeprazole 40 mg PO DAILY 30 Days #30 cap HYDROcodone/APAP 5-325MG [Purdin 5-325] 1 - 2 tab PO Q6HR PRN 7 Days #40 tab PRN Reason: Pain Diclofenac Sodium [Voltaren] 75 mg PO BID 30 Days #60 tab No Action Meloxicam [Mobic] 7.5 mg PO DAILY Sertraline HCl [Zoloft] 150 mg PO HS Levothyroxine Sodium [Synthroid] 150 mcg PO QAM Omeprazole [PriLOSEC] 20 mg PO 1200 Butalb/Acetaminophen/Caffeine [Fioricet 50-300-40 mg Capsule] 1 - 2 cap PO Q4HR PRN PRN Reason: Migraine Headache Calcium Carbonate [Calcium] 600 mg PO DAILY metFORMIN HCL [Glucophage] 500 mg PO BID Acetaminophen [Tylenol Extra Strength] 1,000 mg PO Q4-6H PRN PRN Reason: Pain Discharge Medication List Levothyroxine Sodium [Synthroid] 150 mcg PO QAM 10/11/15 [History] Meloxicam [Mobic] 7.5 mg PO DAILY 10/11/15 [History] Sertraline HCl [Zoloft] 150 mg PO HS 10/11/15 [History] metFORMIN HCL [Glucophage] 500 mg PO BID 12/12/20 [History] Acetaminophen [Tylenol Extra Strength] 1,000 mg PO Q4-6H PRN 05/21/21 [History] Butalb/Acetaminophen/Caffeine [Fioricet 50-300-40 mg Capsule] 1 - 2 cap PO Q4HR PRN 05/21/21 [History] Calcium Carbonate [Calcium] 600 mg PO DAILY 05/21/21 [History] Omeprazole [PriLOSEC] 20 mg PO 1200 05/21/21 [History] Aspirin 81 mg PO BID 30 Days #60 tab 08/23/21 [Rx] Diclofenac Sodium [Voltaren] 75 mg PO BID 30 Days #60 tab 08/23/21 [Rx] Docusate [Colace] 100 mg PO BID #60 capsule 08/23/21 [Rx] HYDROcodone/APAP 5-325MG [Purdin 5-325] 1 - 2 tab PO Q6HR PRN 7 Days #40 tab 08/23/21 [Rx] Omeprazole 40 mg PO DAILY 30 Days #30 cap 08/23/21 [Rx] Follow up Appointment(s)/Referral(s): [facility], [NON-STAFF] - 1-2 Days Emmanuel Infante MD [Medical Doctor] - 2 Weeks Activity/Diet/Wound Care/Special Instructions: Weight bear as tolerated on operative extremity with a walker. Keep operative dressing intact until follow-up appointment. Call the office if your dressing becomes saturated or falls off. Take pain medications as prescribed. Take aspirin 81mg BID x 4 weeks for blood clot prevention. Follow-up in the office in two weeks with Dr. Infante. Call the office with any questions or concerns, Discharge Disposition: HOME SELF-CARE
[2021-08-24 11:39] LABS: Glucose,Whole Blood 114 mg/dL (70-110)
[2021-08-24 11:47] LABS: Basophils # (A) 0.02 X 10*3/uL (0.00-0.10); Basophils % (A) 0.1 %; Eosinophils # (A) 0 X 10*3/uL (0.04-0.35); Eosinophils % (A) 0 %; HCT 34.9 % (37.2-46.3); HGB 10.8 g/dL (12.0-15.0); Immature Grans, Automated 0.6 %; Lymphocytes # (A) 1.45 X 10*3/uL (0.90-5.00); Lymphocytes % (A) 8.7 %; MCH 27.1 pg (27.0-32.0); MCHC 30.9 g/dL (32.0-37.0); MCV 87.7 fL (80.0-97.0); Mean Platelet Volume 10.2 fL (9.5-12.2); Monocytes # (A) 0.99 X 10*3/uL (0.20-1.00); NRBC Per 100 WBC 0 /100 WBCS (0.0-0.0); Neutrophils # (A) 14.07 X 10*3/uL (1.80-7.70); Neutrophils % (A) 84.6 %; Platelet Count 207 X 10*3/uL (140-440); RBC 3.98 X 10*6/uL (4.10-5.20); RDW 14.2 % (11.5-14.5); WBC 16.63 X 10*3/uL (4.50-10.00)
[2021-08-24] MEDS: LACTATED RINGERS 1,000 ML IV SCH (11:55)
--- NOTE | 2021-08-24 12:46 | P.PN ---
Subjective Progress Note Date: 08/24/21 - History of Present Illness Patient is a 66-year-old female with a PMH of type II DM, hypothyroidism, and right knee osteoarthritis who was admitted for an elective total right knee replacement. The patient underwent the procedure earlier today with no immediate postoperative complications. She was seen on the surgical unit postoperatively. She reported excellent control of her pain at the time of interview, rated as a 0 out of 10 at rest. She denied any additional compla ints. She has not passed typhlitis R had a bowel movement at time of interview. She denied extremity chest discomfort, shortness of breath, sore throat, nausea, vomiting, abdominal pain, diarrhea. Denies fever, chills, cough. Interval history: Patient was seen and examined at the bedside. She denies any chest pain or shortness of breath. No acute changes overnight. Patient is being discharged today by primary orthopedic team Physical examination: General: non toxic, no distress, appears at stated age, obese Derm: no unusual rashes/lesions, warm Head: atraumatic, normocephalic, symmetric Eyes: EOMI, no lid lag, anicteric sclera, pupils equal round reactive to light ENT: Nose and ears atraumatic Neck: No cervical lymphadenopathy, trachea midline, supple Mouth: no lip lesion, mucus membranes moist Cardiovascular: S1S2 reg, no murmur, positive dorsalis pedis pulse bilateral, no edema Lungs: CTA bilateral, no rhonchi, no rales, no accessory muscle use Abdominal: soft, nontender to palpation, no guarding Ext: No gross muscle atrophy, no contractures, right knee dressing in place clean and dry Neuro: CN II-XI grossly intact, no gross focal neuro deficits Psych: Alert, oriented, appropriate affect Assessment/plan Chronic conditions: Type II DM, hypothyroidism -Insulin sliding scale and blood glucose monitoring -Continue with home Synthroid dose Status post right total knee replacement -Defer management including DVT prophylaxis and pain control to the primary surgery service Objective - Vital Signs Vital signs: Vital Signs Temp 98.9 F 08/24/21 08:00 Pulse 51 L 08/24/21 08:00 Resp 18 08/24/21 08:00 BP 128/66 08/24/21 08:00 Pulse Ox 94 L 08/24/21 08:00 FiO2 Intake & Output 08/23/21 08/24/21 08/24/21 18:59 06:59 18:59 Intake Total 1450 Output Total 450 Balance 1000 Weight 86 kg 86 kg Intake: IV 1450 Output: Urine 350 Estimated Blood Loss 100 Other: # Voids 3 - Labs CBC & Chem 7: 08/24/21 07:39 08/24/21 07:39 Labs: Abnormal Lab Results - Last 24 Hours (Table) 08/23/21 08/24/21 08/24/21 Range/Units 17:31 07:39 07:39 WBC 16.63 H (4.50-10.00) X 10*3/uL RBC 3.98 L (4.10-5.20) X 10*6/uL Hgb 10.8 L (12.0-15.0) g/dL Hct 34.9 L (37.2-46.3) % MCHC 30.9 L (32.0-37.0) g/dL Immature Gran # 0.10 H (0.00-0.04) X 10*3/uL Neutrophils # 14.07 H (1.80-7.70) X 10*3/uL Eosinophils # 0 L (0.04-0.35) X 10*3/uL Sodium 136 L (137-145) mmol/L BUN 20 H (7-17) mg/dL Glucose 198 H (74-99) mg/dL POC Glucose (mg/dL) 198 H (70-110) mg/dL 08/24/21 08/24/21 Range/Units 07:45 11:38 WBC (4.50-10.00) X 10*3/uL RBC (4.10-5.20) X 10*6/uL Hgb (12.0-15.0) g/dL Hct (37.2-46.3) % MCHC (32.0-37.0) g/dL Immature Gran # (0.00-0.04) X 10*3/uL Neutrophils # (1.80-7.70) X 10*3/uL Eosinophils # (0.04-0.35) X 10*3/uL Sodium (137-145) mmol/L BUN (7-17) mg/dL Glucose (74-99) mg/dL POC Glucose (mg/dL) 242 H 114 H (70-110) mg/dL
--- NOTE | 2021-08-24 18:47 | P.ANPRN ---
Procedure Note - Anesthesia - Nerve Block Performed Right Adductor Canal Single Date of Procedure: 08/23/21 Procedure Start Time: 13:16 Procedure Stop Time: 13:20 Location of Patient: PreOp Indication: Acute Post-Operative Pain, Requested by Surgeon Sedation Type: Sedate with meaningful contact maintained Preparation: Sterile Prep Position: Supine Needle Types: Pajunk Needle Gauge: 21 Ultrasound used to visualize needle placement: Yes Ultrasound used to observe medication spread: Yes Blood Aspirated: No Pain Paresthesia on Injection Noted: No Resistance on Injection: Normal Image Stored and Saved: Yes Events: Uneventful and Well Tolerated (ropi .5% 20cc plus dexamethasone 4mg)
--- NOTE | 2021-08-24 18:48 | P.ANPRN ---
Procedure Note - Anesthesia - Nerve Block Performed Right Darlingck Single Time Out Performed: Yes Date of Procedure: 08/23/21 Procedure Start Time: : Procedure Stop Time: Location of Patient: PreOp Indication: Acute Post-Operative Pain, Requested by Surgeon Sedation Type: Sedate with meaningful contact maintained Preparation: Sterile Prep Position: Supine Needle Types: Pajunk Needle Gauge: 21 Ultrasound used to visualize needle placement: Yes Ultrasound used to observe medication spread: Yes Blood Aspirated: No Pain Paresthesia on Injection Noted: No Resistance on Injection: Normal Image Stored and Saved: Yes Events: Uneventful and Well Tolerated (ropi .5% 20cc plus dexamethasone 4mg)
[2021-08-24] MEDS ORDERED: SERTRALINE 50 MG TAB PO SCH (21:00)
== END 2021-08-24 14:35 | disposition home or self-care (01) ==
LOC: OR 12:07 → 4SSUR 17:21 → OR 08-24 14:35
PROVIDERS: ATTEND Orthopaedic Surgery
DX: M17.11 Unilateral primary osteoarthritis, right knee (principal); M85.80 Other specified disorders of bone density and structure, unspecified site; E11.9 Type 2 diabetes mellitus without complications; E03.9 Hypothyroidism, unspecified; F32.A Depression, unspecified; K21.9 Gastro-esophageal reflux disease without esophagitis; G43.909 Migraine, unspecified, not intractable, without status migrainosus; Z87.81 Personal history of (healed) traumatic fracture; Z87.891 Personal history of nicotine dependence; Z79.890 Hormone replacement therapy; Z79.899 Other long term (current) drug therapy; Z79.84 Long term (current) use of oral hypoglycemic drugs; Z88.2 Allergy status to sulfonamides; Z98.890 Other specified postprocedural states; Z87.442 Personal history of urinary calculi; Z87.440 Personal history of urinary (tract) infections; Z90.49 Acquired absence of other specified parts of digestive tract; Z90.710 Acquired absence of both cervix and uterus; Z98.42 Cataract extraction status, left eye
CPT/HCPCS: 97162; 64447; 64999; 76942; 80048; 85025; 88300; 73560; 27447; C1776; C1713; J2250; J0360; J1100 ×2; J2710; J0690 ×2; J2405; J3010; J2795; J1885; J2370; J0330; J2704; J1170; J2001

== ENCOUNTER → 2021-09-06 | Outpatient (CLI) | payer OTHER ==
[2021-09-06 09:06] LABS: African American GFR (CKD) >90 (>60 ml/min/1.73 sqM); Blood Urea Nitrogen 27 mg/dL (7-17); Non-African American GFR(CKD) >90 (>60 ml/min/1.73 sqM)
--- NOTE | 2021-09-06 10:41 | CT ---
EXAMINATION TYPE: CT abdomen wo/w con DATE OF EXAM: 09/06/2021 COMPARISON: 10/11/2015 and renal ultrasound 08/06/2021 HISTORY: 66-year-old female Q63.1, lobulated kidney, UTI, Renal Stones TECHNIQUE: Contiguous axial scanning of the abdomen before and after of 70 ml Isovue 300 IV contrast. Delayed images through the kidneys and coronal/sagittal reconstructions performed. CT DLP: 1596 mGycm Automated exposure control for dose reduction was used. FINDINGS: Heart upper limits of normal in size without pericardial effusion. Lung bases clear without pleural e ffusion. Tiny hiatal hernia redemonstrated. Liver mildly enlarged at 19.1 cm. No focal lesion is seen. Cholecystectomy clips. Portal venous syste m is patent. No biliary ductal dilatation. Adrenal glands, spleen, and pancreas within normal limits. Right kidney shows a nonobstructive 6 mm and adjacent 4 mm mid pole calculus. Left kidney shows a 6 mm left mid to lower pole calculus. Some focal mid pole contour lobulation is noted in the left kidney. Symmetric uptake and excretion of contrast from both kidneys. No suspicious renal mass. No dilated small bowel, free fluid, or free air. No mesenteric or retroperitoneal lymphadenopathy. Moderate stool burden. Left-sided colonic diverticulosis. No pericolonic inflammatory change seen. Mild atherosclerotic calcifications abdominal aorta without aneurysm. Pelvis not imaged. Bones: Hypertrophic facet arthropathy lower lumbar spine. Moderate degenerative disc disease multiple levels. Disc herniations at L3-L4 and L4-L5. These likely contribute to mild spinal canal stenosis, possibly more moderate at L4-L5. IMPRESSION: 1. A FEW BILATERAL NONOBSTRUCTING RENAL CALCULI MEASURING UP TO 6 MM ON EITHER SIDE. 2. FOCAL CONTOUR LOBULATION ALONG THE LEFT MID POLE. NO SUSPICIOUS RENAL MASS. 3. TINY HIATAL HERNIA AND LEFT-SIDED COLONIC DIVERTICULOSIS.
== END | disposition home or self-care (01) ==
LOC: RADCTMAIN 08:09
PROVIDERS: ATTEND Internal Medicine
DX: N20.0 Calculus of kidney (principal); K44.9 Diaphragmatic hernia without obstruction or gangrene; K57.30 Diverticulosis of large intestine without perforation or abscess without bleeding
CPT/HCPCS: 82565; 84520; 74170; 36415; Q9967 ×2

== ENCOUNTER 2021-11-05 16:24 | Emergency (ER) | payer OTHER ==
[2021-11-05 16:57] VITALS: TEMP 97.6
--- NOTE | 2021-11-05 17:20 | ED ---
General Adult HPI - General Chief complaint: Fall Stated complaint: fell off ladder Time Seen by Provider: 11/05/21 16:59 Source: patient Mode of arrival: ambulatory Limitations: no limitations - History of Present Illness Initial comments: Dictation was produced using Savor dictation software. please excuse any grammatical, word or spelling errors. Chief Complaint: 66-year-old female presents emergency Department with facial pain, chest pain, shoulder pain and right knee pain after fall History of Present Illness: Patient's 66-year-old female she denies any significant comorbidities. She was on a ladder when she lost her balance and she fell off landing on her right side. Patient hit her face. Denies any loss of consciousness. She is here today complaining of facial pain, right shoulder pain, left lateral chest pain and right knee pain. Patient's history of right knee surgery recently. Patient was able to ambulate and drive herself to the emergency room. The ROS documented in this emergency department record has been reviewed and confirmed by me. Those systems with pertinent positive or negative responses h ave been documented in the HPI. All other systems are other negative and/or noncontributory. PHYSICAL EXAM: General Impression: Alert and oriented x3, not in acute distress HEENT: Abrasion to the nose, extra-ocular movements intact, pupils equal and reactive to light bilaterally, mucous membranes moist. Cardiovascular: Heart regular rate and rhythm Chest: Able to complete full sentences, no retractions, no tachypnea Abdomen: abdomen soft, non-tender, non-distended, no organomegaly Musculoskeletal: Pulses present and equal in all extremities, no peripheral edema Motor: no focal deficits noted Neurological: CN II-XII grossly intact, no focal motor or sensory deficits noted Skin: Intact with no visualized rashes Psych: Normal affect and mood ED course: 66-year-old female presents emergency Department with multiple pain complaints after fall from a ladder. Vital signs upon arrival are within acceptable limits. Computed tomography scan of the brain and face shows no acute processes. Shoulder x-ray chest x-ray and the x-ray shows no acute processes. Patient reevaluated at bedside at 6:00 PM father with stable medical condition. Patient be discharged. - Related Data Home Medications Medication Instructions Recorded Confirmed Levothyroxine Sodium [Synthroid] 150 mcg PO QAM 10/11/15 08/23/21 Meloxicam [Mobic] 7.5 mg PO DAILY 10/11/15 08/20/21 Sertraline HCl [Zoloft] 150 mg PO HS 10/11/15 08/23/21 metFORMIN HCL [Glucophage] 500 mg PO BID 12/12/20 08/23/21 Acetaminophen [Tylenol Extra 1,000 mg PO Q4-6H PRN 05/21/21 08/23/21 Strength] Butalb/Acetaminophen/Caffeine 1 - 2 cap PO Q4HR PRN 05/21/21 08/23/21 [Fioricet 50-300-40 mg Capsule] Calcium Carbonate [Calcium] 600 mg PO DAILY 05/21/21 08/23/21 Omeprazole [PriLOSEC] 20 mg PO 1200 05/21/21 08/23/21 Previous Rx's Medication Instructions Recorded Aspirin 81 mg PO BID 30 Days #60 tab 08/23/21 Diclofenac Sodium [Voltaren] 75 mg PO BID 30 Days #60 tab 08/23/21 Docusate [Colace] 100 mg PO BID #60 capsule 08/23/21 HYDROcodone/APAP 5-325MG [[place] 1 - 2 tab PO Q6HR PRN 7 Days #40 08/23/21 5-325] tab Omeprazole 40 mg PO DAILY 30 Days #30 cap 08/23/21 Allergies Allergy/AdvReac Type Severity Reaction Status Date / Time sulfamethoxazole Allergy Severe Itching Verified 11/05/21 16:57 [From Bactrim] trimethoprim [From Bactrim] Allergy Severe Itching Verified 11/05/21 16:57 Review of Systems ROS Statement: Those systems with pertinent positive or pertinent negative responses have been documented in the HPI. ROS Other: All systems not noted in ROS Statement are negative. Past Medical History Past Medical History: Thyroid Disorder Additional Past Medical History / Comment(s): kidney stones, diverticulitis, migraines History of Any Multi-Drug Resistant Organisms: None Reported Past Surgical History: Cholecystectomy, Hysterectomy Additional Past Surgical History / Comment(s): left cataract, left breast biopsy, ectopic Past Psychological History: Depression Smoking Status: Former smoker Past Alcohol Use History: Rare Past Drug Use History: None Reported - Past Family History Father Family Medical History: Cancer General Exam Limitations: no limitations Course Vital Signs 11/05/21 16:54 Temperature 97.6 F Pulse Rate 63 Respiratory 20 Rate Blood Pressure 151/76 O2 Sat by Pulse 98 Oximetry Disposition Clinical Impression: Fall Disposition: HOME SELF-CARE Condition: Good Instructions (If sedation given, give patient instructions): Fall Prevention (ED) Is patient prescribed a controlled substance at d/c from ED?: No Referrals: Harish Ruth MD [Primary Care Provider] - 1-2 days Time of Disposition: 18:00
--- NOTE | 2021-11-05 17:46 | XR ---
EXAMINATION TYPE: XR chest 2V DATE OF EXAM: 11/05/2021 COMPARISON: NONE HISTORY: Pain TECHNIQUE: 2 views FINDINGS: There is no heart failure nor confluent pneumonic infiltrate. Heart size is normal. Costoph renic angles are clear. Bony thorax is intact. IMPRESSION: No active cardiopulmonary disease.
[2021-11-05] MEDS ORDERED: KETOROLAC 15 MG/ML 1 ML VIAL IM STA (17:48)
--- NOTE | 2021-11-05 17:49 | CT ---
EXAMINATION TYPE: CT brain wo con DATE OF EXAM: 11/05/2021 COMPARISON: None HISTORY: fall CT DLP: 812 mGycm Automated exposure control for dose reduction was used. Ventricles have normal size. There is no mass effect or midline shift. No sign of intracranial hemorr toña. Calvarium is intact. Skull base is intact. There is normal aeration of the mastoid sinuses. IMPRESSION: Normal unenhanced head CT scan.
--- NOTE | 2021-11-05 17:51 | CT ---
EXAMINATION TYPE: CT facial bones wo con DATE OF EXAM: 11/05/2021 COMPARISON: None HISTORY: fall CT DLP: 812 mGycm Automated exposure control for dose reduction was used. Images obtained from the bottom of the mandible to the top of the frontal sinuses with no contrast. The mandibular ring is intact. Temporomandibular joints are intact. There is normal aeration of the m astoid sinuses. The maxilla is intact. Nasal bone is intact. The orbital margins are intact. No evidence of orbital blowout fracture. There is normal aeration of the paranasal sinuses. Temporal bones are intact. IMPRESSION: Negative CT scan of the facial bones. No fracture.
--- NOTE | 2021-11-05 17:55 | XR ---
EXAMINATION TYPE: XR shoulder complete RT DATE OF EXAM: 11/05/2021 COMPARISON: NONE HISTORY: Pain TECHNIQUE: 3 views of FINDINGS: The glenohumeral joint is intact. Scapula is intact. I see no fracture nor dislocation. The right upper ribs appear intact. IMPRESSION: Negative right shoulder exam.
--- NOTE | 2021-11-05 17:56 | XR ---
EXAMINATION TYPE: XR knee complete RT DATE OF EXAM: 11/05/2021 COMPARISON: NONE HISTORY: Pain TECHNIQUE: 3 views FINDINGS: There is a right knee prosthesis. Components appear in anatomic position. No fracture line seen. IMPRESSION: Negative right knee exam.
[2021-11-05] MEDS ORDERED: traMADol 50 MG STARTER PACK 3 TAB BTL PO STA (18:05)
--- NOTE | 2021-11-05 18:05 | ED ---
Disposition Clinical Impression: Fall Disposition: HOME SELF-CARE Condition: Good Instructions (If sedation given, give patient instructions): Fall Prevention (ED) Is patient prescribed a controlled substance at d/c from ED?: No Referrals: Emmanuel Infante MD [Medical Doctor] - 1-2 days
[2021-11-05 18:16] VITALS: BP 142/81; PULSE 62; RESP 18
== END 2021-11-05 18:16 | disposition home or self-care (01) ==
LOC: EC 16:24
DX: R07.89 Other chest pain (principal); E07.9 Disorder of thyroid, unspecified; F32.A Depression, unspecified; Z87.891 Personal history of nicotine dependence; Z88.2 Allergy status to sulfonamides; Z79.82 Long term (current) use of aspirin; Z79.890 Hormone replacement therapy; Z79.84 Long term (current) use of oral hypoglycemic drugs; Z79.899 Other long term (current) drug therapy; W11.XXXA Fall on and from ladder, initial encounter
CPT/HCPCS: 99285; 73030; 73562; 71046; 70486; 70450; 96372; J1885

== ENCOUNTER 2021-11-26 07:12 | Day surgery (SDC) | payer OTHER ==
[2021-11-22 12:31] VITALS: BMI 30.7
[~2021-11-26 07:12] MED LIST changes: -ACETAMINOPHEN TAB 500 MG TAB PO PRN; -DEXAMETHASONE SOD PHOSPHATE 10 MG/ML 1 ML VIAL IV PRN; -DOCUSATE 100 MG CAP PO PRN; -FAMOTIDINE 20 MG/2 ML VIAL IVP PRN; -KETOROLAC 15 MG/ML 1 ML VIAL IVP PRN; +LACTATED RINGERS 1,000 ML IV SCH; -ONDANSETRON 4 MG/2 ML VIAL IVP PRN; -ROPIVACAINE/EPI/CLONIDINE/KET 50 ML SYRINGE MISCELLANE PRN; -TRANEXAMIC ACID IN NACL,ISO-OS 1,000 MG in SALINE 1 100ML.BAG IVPB PRN; -VANCOMYCIN 1,000 MG in SODIUM CHLORIDE 0.9% 250 ML IVPB PRN; -oxyCODONE ER 10 MG TAB.ER.12H PO PRN
[2021-11-26 07:49] LABS: Glucose,Whole Blood 133 mg/dL (70-110)
[2021-11-26 07:57] VITALS: RESP 16; TEMP 97.2
[2021-11-26] MEDS ORDERED: LIDOCAINE 2% INJ 20 MG/ML (2 ML VIAL) ONE (08:45)
[2021-11-26] MEDS ORDERED: PROPOFOL 10 MG/ML 20 ML VIAL IV ONE (08:45)
--- NOTE | 2021-11-26 09:06 | P.PCN ---
Date of Procedure: 11/26/21 Procedure(s) Performed: BRIEF HISTORY: Patient is a 66-year-old pleasant female scheduled for an elective colonoscopy as a part of evaluation of positive cologuard. She also has family history of colon cancer diagnosed in her mother at age 84. PROCEDURE PERFORMED: Colonoscopy. PREOPERATIVE DIAGNOSIS: Positive cologuard. IV sedation per Anesthesia. PROCEDURE: After informed consent was obtained, the patient, was brought into the endoscopy unit. IV sedation was administered by Anesthesia under continuous monitoring. Digital rectal examination was normal. Initially the Olympus CF-160 flexible video colonoscope was then inserted in the rectum, gradually advanced into the cecum without any difficulty. Careful examination was performed as the scope was gradually being withdrawn. Ileocecal valve and the appendiceal orifice were visualized and appeared normal. Prep was excellent. Mucosa of the cecum, ascending colon, transverse colon, descending colon, sigmoid colon, and rectum appeared normal. Scattered sigmoid diverticulosis. Retroflexion was performed in the rectum and no lesions were seen. The patient tolerated the procedure well. IMPRESSION: Normal-appearing colon from rectum to cecum no evidence of colorectal neoplasia. Scattered sigmoid diverticulosis. RECOMMENDATIONS: Findings of this examination were discussed with the patient as well as her family. She was advised to have a repeat screening colonoscopy in 5 years because of family history of colon cancer..
[2021-11-26 09:30] VITALS: BP 164/85; PULSE 54
== END 2021-11-26 09:52 | disposition home or self-care (01) ==
LOC: ORWHC2ENDO 07:12
PROVIDERS: ATTEND Internal Medicine Gastroenterology
DX: K57.30 Diverticulosis of large intestine without perforation or abscess without bleeding (principal); E78.5 Hyperlipidemia, unspecified; E11.9 Type 2 diabetes mellitus without complications; Z79.84 Long term (current) use of oral hypoglycemic drugs; E07.9 Disorder of thyroid, unspecified; G43.909 Migraine, unspecified, not intractable, without status migrainosus; F32.9 Major depressive disorder, single episode, unspecified; K21.9 Gastro-esophageal reflux disease without esophagitis; Z87.442 Personal history of urinary calculi; Z87.891 Personal history of nicotine dependence; Z80.0 Family history of malignant neoplasm of digestive organs; Z88.2 Allergy status to sulfonamides
CPT/HCPCS: 45378; J2704; J2001

== ENCOUNTER 2021-12-22 19:52 | Emergency (ER) | payer OTHER ==
[2021-12-22] MEDS ORDERED: KETOROLAC 15 MG/ML 1 ML VIAL IVP STA (20:38)
[2021-12-22] MEDS ORDERED: SODIUM CHLORIDE 0.9% 500 ML 500 ML IV STA (20:38)
--- NOTE | 2021-12-22 20:39 | ED ---
Abdominal Pain HPI - General Chief Complaint: Abdominal Pain Stated Complaint: posible Kidney Stone Time Seen by Provider: 12/22/21 20:15 Source: patient Mode of arrival: ambulatory Limitations: no limitations - History of Present Illness Initial Comments: 66-year-old female past history of kidney stones, diabetes presents emergency room with right-sided flank pain. States it's been present for the past 3 days. Pain is described as a sharp shooting sensation which is worse with movement and palpation. Has not been taking any medications at home for her symptoms. Denies hematuria, dysuria or difficulty voiding. No diarrhea, constipation, black or bloody stools. No fevers. No rashes. Denies any trauma. No chest pain or shortness of breath. No history of similar in the past. No other alleviating, precipitating or modifying factors - Related Data Home Medications Medication Instructions Recorded Confirmed Levothyroxine Sodium [Synthroid] 150 mcg PO QAM 10/11/15 11/26/21 Sertraline HCl [Zoloft] 150 mg PO HS 10/11/15 11/26/21 metFORMIN HCL [Glucophage] 500 mg PO BID 12/12/20 11/26/21 Butalb/Acetaminophen/Caffeine 1 - 2 cap PO Q4HR PRN 05/21/21 11/26/21 [Fioricet 50-300-40 mg Capsule] Omeprazole [PriLOSEC] 20 mg PO 1400 05/21/21 11/26/21 Acetaminophen [Tylenol Extra 500 - 1,000 mg PO BID PRN 11/22/21 11/26/21 Strength] Methenamine Hippurate [Hiprex] 1 gm PO BID 11/22/21 11/26/21 Naproxen Sodium [Aleve] 220 mg PO BID PRN 11/22/21 11/26/21 Vitamin C Chew. 250 mg PO DAILY 11/22/21 11/26/21 Previous Rx's Medication Instructions Recorded Acetaminophen-Codeine 300-30mg 1 tab PO Q6H PRN 3 Days #12 tablet 12/22/21 [Tylenol w/codeine #3] Allergies Allergy/AdvReac Type Severity Reaction Status Date / Time sulfamethoxazole Allergy Severe Itching Verified 12/22/21 20:08 [From Bactrim] trimethoprim [From Bactrim] Allergy Severe Itching Verified 12/22/21 20:08 Review of Systems ROS Statement: Those systems with pertinent positive or pertinent negative responses have been documented in the HPI. ROS Other: All systems not noted in ROS Statement are negative. Past Medical History Past Medical History: Diabetes Mellitus, GERD/Reflux, Hyperlipidemia, Osteoarthritis (OA), Pneumonia, Thyroid Disorder Additional Past Medical History / Comment(s): kidney stones, diverticulitis, migraines, small hiatal hernia, History of Any Multi-Drug Resistant Organisms: None Reported Past Surgical History: Breast Surgery, Cholecystectomy, Hysterectomy, Joint Replacement, Orthopedic Surgery Additional Past Surgical History / Comment(s): left cataract, rt breast biopsy, ectopic , rt knee replacement, ORIF left foot Past Anesthesia/Blood Transfusion Reactions: No Reported Reaction Past Psychological History: Depression Smoking Status: Former smoker - Past Family History Father Family Medical History: Deep Vein Thrombosis (DVT) Mother Family Medical History: Cancer Additional Family Medical History / Comment(s): colon General Exam Limitations: no limitations General appearance: alert, in no apparent distress Head exam: Present: atraumatic, normocephalic, normal inspection Eye exam: Present: normal appearance, PERRL, EOMI. Absent: scleral icterus, conjunctival injection, periorbital swelling ENT exam: Present: normal exam, mucous membranes moist Neck exam: Present: normal inspection. Absent: tenderness, meningismus, l ymphadenopathy Respiratory exam: Present: normal lung sounds bilaterally. Absent: respiratory distress, wheezes, rales, rhonchi, stridor Cardiovascular Exam: Present: regular rate, normal rhythm, normal heart sounds. Absent: systolic murmur, diastolic murmur, rubs, gallop, clicks GI/Abdominal exam: Present: soft, normal bowel sounds. Absent: distended, tenderness, guarding, rebound, rigid Extremities exam: Present: normal inspection, full ROM, normal capillary refill. Absent: tenderness, pedal edema, joint swelling, calf tenderness Back exam: Present: CVA tenderness (R) Neurological exam: Present: alert, oriented X3, CN II-XII intact Psychiatric exam: Present: normal affect, normal mood Skin exam: Present: warm, dry, intact, normal color. Absent: rash Course Vital Signs 12/22/21 12/22/21 12/22/21 20:03 21:00 23:00 Temperature 98.1 F 98.2 F Pulse Rate 71 60 54 L Respiratory 18 18 16 Rate Blood Pressure 185/82 167/75 O2 Sat by Pulse 99 97 98 Oximetry Medical Decision Making - Medical Decision Making The patient is placed into room 16. Thorough history and physical exam was performed. IV is established. Patient given Toradol for pain control. Laboratory studies were conducted and reviewed. Urinalysis does demonstrate small blood. CT of the abdomen and pelvis demonstrates bilateral nonobstructing renal calculi. No hydronephrosis. Colonic diverticulosis. Patient was reevaluated. Has had minimal pain improvement. I discussed diagnosis, diffe rential and treatment options. Patient will be discharged home at this time and instructed helped her primary care doctor for further evaluation of her symptoms. Return for any new or worsening symptoms. Patient was agreeable discharged home in stable condition - Lab Data Result diagrams: 12/22/21 20:56 12/22/21 20:56 Lab Results 12/22/21 12/22/21 12/22/21 Range/Units 20:45 20:56 20:56 WBC 8.9 (3.8-10.6) k/uL RBC 4.45 (3.80-5.40) m/uL Hgb 12.7 (11.4-16.0) gm/dL Hct 38.4 (34.0-46.0) % MCV 86.3 (80.0-100.0) fL MCH 28.6 (25.0-35.0) pg MCHC 33.1 (31.0-37.0) g/dL RDW 14.1 (11.5-15.5) % Plt Count 198 (150-450) k/uL MPV 7.7 Neutrophils % 58 % Lymphocytes % 32 % Monocytes % 5 % Eosinophils % 3 % Basophils % 1 % Neutrophils # 5.1 (1.3-7.7) k/uL Lymphocytes # 2.9 (1.0-4.8) k/uL Monocytes # 0.5 (0-1.0) k/uL Eosinophils # 0.2 (0-0.7) k/uL Basophils # 0.0 (0-0.2) k/uL Hypochromasia Slight Sodium 138 (137-145) mmol/L Potassium 4.9 (3.5-5.1) mmol/L Chloride 101 (98-107) mmol/L Carbon Dioxide 26 (22-30) mmol/L Anion Gap 11 mmol/L BUN 22 H (7-17) mg/dL Creatinine 0.98 (0.52-1.04) mg/dL Est GFR (CKD-EPI)AfAm 71 (>60 ml/min/1.73 sqM) Est GFR (CKD-EPI)NonAf 61 (>60 ml/min/1.73 sqM) Glucose 155 H (74-99) mg/dL Calcium 9.6 (8.4-10.2) mg/dL Total Bilirubin 0.5 (0.2-1.3) mg/dL AST 30 (14-36) U/L ALT 20 (4-34) U/L Alkaline Phosphatase 93 (38-126) U/L Total Protein 7.3 (6.3-8.2) g/dL Albumin 4.5 (3.5-5.0) g/dL Lipase 88 (23-300) U/L Urine Color Yellow Urine Appearance Clear (Clear) Urine pH 5.5 (5.0-8.0) Ur Specific [place] 1.024 (1.001-1.035) Urine Protein Negative (Negative) Urine Glucose (UA) Negative (Negative) Urine Ketones Trace H (Negative) Urine Blood Small H (Negative) Urine Nitrite Negative (Negative) Urine Bilirubin Negative (Negative) Urine Urobilinogen <2.0 (<2.0) mg/dL Ur Leukocyte Esterase Trace H (Negative) Urine RBC 6 H (0-5) /hpf Urine WBC 5 (0-5) /hpf Ur Squamous Epith Cells <1 (0-4) /hpf Urine Mucus Rare H (None) /hpf Disposition Clinical Impression: Right flank pain Disposition: HOME SELF-CARE Condition: Stable Instructions (If sedation given, give patient instructions): Flank Pain (ED) Additional Instructions: Please follow-up with your primary care doctor for reevaluation. Return for any new or worsening symptoms Prescriptions: Acetaminophen-Codeine 300-30mg [Tylenol w/codeine #3] 1 tab PO Q6H PRN 3 Days #12 tablet PRN Reason: Pain Is patient prescribed a controlled substance at d/c from ED?: Yes When asked, does pt state using other controlled substances?: No If prescribed controlled substance>3 days was MAPS reviewed?: Prescribed <3 Days Referrals: Harish Ruth MD [Primary Care Provider] - 1-2 days Time of Disposition: 22:50
[2021-12-22 21:01] LABS: Appearance,Urine Clear (Clear); Bilirubin,Urine Negative (Negative); Blood,Urine Small (Negative); Color,Urine Yellow; Glucose,Urine (UA) Negative (Negative); Ketones,Urine Trace (Negative); Leukocyte Esterase,Urine Trace (Negative); Mucus,Urine Rare /hpf; Nitrite,Urine Negative (Negative); PH, Urine 5.5 (5.0-8.0); Protein,Urine Negative (Negative); RBC,Urine 6 /hpf (0-5); Specific Gravity,Urine 1.024 (1.001-1.035); Squamous Epithelial Cell,Urine <1 /hpf (0-4); Urobilinogen,Urine <2.0 mg/dL (<2.0); WBC,Urine 5 /hpf (0-5)
[2021-12-22 21:09] LABS: Basophils % (A) 1 %; Eosinophils # (A) 0.2 k/uL (0-0.7); Eosinophils % (A) 3 %; HCT 38.4 % (34.0-46.0); HGB 12.7 gm/dL (11.4-16.0); Hypochromasia Slight; Lymphocytes # (A) 2.9 k/uL (1.0-4.8); Lymphocytes % (A) 32 %; MCH 28.6 pg (25.0-35.0); MCHC 33.1 g/dL (31.0-37.0); MCV 86.3 fL (80.0-100.0); Mean Platelet Volume 7.7; Monocytes # (A) 0.5 k/uL (0-1.0); Monocytes % (A) 5 %; Neutrophils # (A) 5.1 k/uL (1.3-7.7); Neutrophils % (A) 58 %; Platelet Count 198 k/uL (150-450); RBC 4.45 m/uL (3.80-5.40); RDW 14.1 % (11.5-15.5); WBC 8.9 k/uL (3.8-10.6)
--- NOTE | 2021-12-22 21:35 | CT ---
EXAMINATION TYPE: CT abdomen pelvis wo con CT DLP: 795.9 mGycm, Automated exposure control for dose reduction was used. DATE OF EXAM: 12/22/2021 9:24 PM COMPARISON: CT abdomen pelvis 09/06/2021 CLINICAL INDICATION:Female, 66 years old with history of abdominal pain; pt presents with flank pain. hx of kidney stones TECHNIQUE: Axial CT of the abdomen and pelvis. Sagittal and coronal reformats were created on a [employer] [employer] workstation. Contrast used: None Oral contrast used: without Oral Contrast FINDINGS: LOWER CHEST: Unremarkable ABDOMEN LIVER: Hepatomegaly at 20 cm. No focal lesion on this noncontrast exam. GALLBLADDER AND BILE DUCTS: The gallbladder is surgically absent. PANCREAS: Unremarkable. SPLEEN: Unremarkable. ADRENAL GLANDS: Unremarkable. KIDNEYS AND URETERS: Nonobstructing right renal calculi, largest measuring 8mm. Nonobstructing left r enal calculi, largest of which measures 7 mm. No hydronephrosis. Ureters are unremarkable. PELVIS BLADDER: Incompletely distended but grossly unremarkable. REPRODUCTIVE: Unremarkable. ABDOMEN & PELVIS STOMACH AND BOWEL: Small hiatal hernia, duodenum is unremarkable. Scattered diverticula are noted thr oughout the colon. No evidence of bowel obstruction. PERITONEUM: No evidence of pneumoperitoneum or free fluid. VASCULATURE: Mild atherosclerotic calcifications are present throughout the abdominal aorta and its b ranches. No evidence of aortic aneurysm. MUSCULOSKELETAL: No acute osseous abnormalities. Mild disc degeneration changes are present throughou t the thoracolumbar spine. LYMPH NODES: No gross evidence for lymphadenopathy. SOFT TISSUE/ABDOMINAL WALL: Unremarkable IMPRESSION: 1. Bilateral nonobstructing renal calculi. No hydronephrosis. 2. Colonic diverticulosis and other incidental findings as detailed above.
[2021-12-22 21:42] LABS: Albumin 4.5 g/dL (3.5-5.0); Calcium 9.6 mg/dL (8.4-10.2); Total Bilirubin 0.5 mg/dL (0.2-1.3); Total Protein 7.3 g/dL (6.3-8.2)
[2021-12-22 22:21] LABS: Potassium 4.9 mmol/L (3.5-5.1)
[2021-12-22] MEDS ORDERED: ACET/COD 300 MG/30 MG STARTER PACK 6 TAB BTL PO STA (22:46)
[2021-12-22 23:02] VITALS: BP 167/75; PULSE 54; RESP 16; TEMP 98.2
== END 2021-12-22 23:01 | disposition home or self-care (01) ==
LOC: EC 19:52
DX: R10.9 Unspecified abdominal pain (principal); E78.5 Hyperlipidemia, unspecified; E11.9 Type 2 diabetes mellitus without complications; K21.9 Gastro-esophageal reflux disease without esophagitis; M19.90 Unspecified osteoarthritis, unspecified site; E07.9 Disorder of thyroid, unspecified; Z88.2 Allergy status to sulfonamides; Z87.891 Personal history of nicotine dependence; Z88.1 Allergy status to other antibiotic agents; Z79.84 Long term (current) use of oral hypoglycemic drugs; Z79.890 Hormone replacement therapy; Z79.899 Other long term (current) drug therapy
CPT/HCPCS: 99284 ×2; 96374 ×2; 96361 ×2; 36415; 80053; 83690; 85025; 81001; 74176; J1885

== ENCOUNTER → 2022-01-17 | Outpatient (CLI) | payer OTHER ==
[2022-01-17 14:15] LABS: Basophils # (A) 0.03 X 10*3/uL (0.00-0.10); Basophils % (A) 0.4 %; HCT 39.9 % (37.2-46.3); HGB 12.4 g/dL (12.0-15.0); Immature Grans, Automated 0.3 %; Lymphocytes # (A) 2.04 X 10*3/uL (0.90-5.00); Lymphocytes % (A) 30.4 %; MCH 27.7 pg (27.0-32.0); MCHC 31.1 g/dL (32.0-37.0); MCV 89.1 fL (80.0-97.0); Mean Platelet Volume 10.2 fL (9.5-12.2); Monocytes # (A) 0.39 X 10*3/uL (0.20-1.00); Monocytes % (A) 5.8 %; NRBC Per 100 WBC 0 /100 WBCS (0.0-0.0); Neutrophils # (A) 4.02 X 10*3/uL (1.80-7.70); Neutrophils % (A) 60.1 %; Platelet Count 188 X 10*3/uL (140-440); RBC 4.48 X 10*6/uL (4.10-5.20); RDW 14.7 % (11.5-14.5)
[2022-01-17 17:29] LABS: ALT 15 U/L (8-44); AST 16 U/L (13-35); African American GFR (CKD) 106.1 (60.0-200.0); Albumin 4.4 g/dL (3.8-4.9); Albumin/Globulin Ratio 1.69 (1.60-3.17); Alkaline Phosphatase 96 U/L (41-126); Blood Urea Nitrogen 24.5 mg/dL (9.0-27.0); Calcium 9.4 mg/dL (8.7-10.3); Carbon Dioxide 24.6 mmol/L (20.0-27.5); Chloride 105 mmol/L (96-109); Chol/HDL Ratio 3.88 Ratio; Globulin 2.6 g/dL (1.6-3.3); Glucose 132 mg/dL (70-110); LDL Cholesterol,Calculated 125.1 mg/dL (0.0-131.0); Non-African American GFR(CKD) 91.6 (60.0-200.0); Potassium 4.6 mmol/L (3.5-5.5); Sodium 142 mmol/L (135-145)
== END | disposition home or self-care (01) ==
LOC: LABWHC1 08:50
PROVIDERS: ATTEND Internal Medicine
DX: E11.9 Type 2 diabetes mellitus without complications (principal); E03.9 Hypothyroidism, unspecified; N20.0 Calculus of kidney
CPT/HCPCS: 36415; 80053; 80061; 83036; 84439; 84443; 84550; 85025

== ENCOUNTER → 2022-07-08 | Outpatient (CLI) | payer MEDICARE ==
--- NOTE | 2022-07-09 20:49 | MM ---
Reason for Exam: Screening (asymptomatic). Last mammogram was performed 3 year(s) and 4 month(s) ago. Patient History: Menarche at age 14. Patient has no children. Left ovary removed at age 45. Right ovary removed at age 45. Hysterectomy at age 45. Postmenopausal. Patient used Hormonal Contraceptives for 10 years. Estrogen and Progesterone for 9 months. Risk Values: Lily 5 year model risk: 1.8%. NCI Lifetime model risk: 6.9%. Prior Study Comparison: 08/25/2014 Bilateral Screening Mammogram, Formerly [facility], [place]. 03/15/2019 Bilateral Screening Mammogram, [facility], [place]. Tissue Density: There are scattered fibroglandular densities. Findings: Analyzed By CAD. There is no suspicious group of microcalcifications or new suspicious mass in either breast. Overall Assessment: Negative, BI-RAD 1 Management: Screening Mammogram of both breasts in 1 year. . Patient should continue monthly self-breast exams. A clinical breast exam by your physician is recommended on an annual basis. This exam should not preclude additional follow-up of suspicious palpable abnormalities. Note on Lily scores and lifetime risk: 1. A Lily score greater than 3% is considered moderate risk. If this is the case, consider specialist referral to assess eligibility for a risk reducing agent. 2. If overall lifetime risk for the development of breast cancer is 20% or higher, the patient may qualify for future screening with alternating mammogram and breast MRI. Electronically signed and approved by: Taz Menon M.D. Radiologist
== END | disposition home or self-care (01) ==
LOC: RADMAMWWP 12:55
PROVIDERS: ATTEND Internal Medicine
DX: Z12.31 Encounter for screening mammogram for malignant neoplasm of breast (principal); Z78.0 Asymptomatic menopausal state
CPT/HCPCS: 77063; 77067

== ENCOUNTER → 2022-07-10 | Outpatient (CLI) | payer MEDICARE, OTHER ==
--- NOTE | 2022-07-10 15:47 | MR ---
EXAMINATION TYPE: MR cervical spine wo con DATE OF EXAM: 07/10/2022 COMPARISON: None HISTORY: Neck pain, numbness into rt side into finger tips TECHNIQUE: Multiplanar, multisequence images of the cervical spine were acquired without contrast. Cervical segments are intact. There is normal alignment. Cervical spinal cord is of normal signal. Craniovertebral junction relationships are within normal limits. Multilevel disc desiccation. C2-C3: No disc bulge/herniation or protrusion. No Canal stenosis. Foramina are patent bilaterally. C3-C4: No disc bulge/herniation or protrusion. No Canal stenosis. Foramina are patent bilaterally. C4-C5: Eccentric right disc bulge without significant central canal stenosis. Uncovertebral joint hyp ertrophy with mild right neural foraminal stenosis. The left neural foramen is patent. C5-C6: Eccentric right disc bulge with minimal effacement of the anterior right thecal sac. Uncoverte bral joint hypertrophy with mild right neural foraminal stenosis. The left neural foramen is patent. C6-C7: Right foraminal zone protrusion (series 601, image 15). No central canal stenosis. Severe righ t neural foraminal stenosis. The left neural foramen is patent. C7-T1: No disc bulge/herniation or protrusion. No Canal stenosis. Foramina are patent bilaterally. IMPRESSION: 1. C6-C7 right foraminal zone disc herniation causing severe right neural foraminal stenosis. No memo tral canal stenosis. 2. Mild multilevel degenerative disease.
[2022-07-10 21:48] LABS: African American GFR (CKD) 105.4 (60.0-200.0); Anion Gap 12.8 mmol/L (10.00-18.00); BUN/Creat Ratio 39.29 Ratio (12.00-20.00); Blood Urea Nitrogen 27.5 mg/dL (9.0-27.0); Calcium 10.2 mg/dL (8.7-10.3); Carbon Dioxide 25.2 mmol/L (20.0-27.5); Non-African American GFR(CKD) 90.9 (60.0-200.0); Potassium 5.2 mmol/L (3.5-5.5)
== END | disposition home or self-care (01) ==
LOC: RADMRIMAIN 14:16
PROVIDERS: ATTEND Internal Medicine
DX: M50.223 Other cervical disc displacement at C6-C7 level (principal); I10 Essential (primary) hypertension; M47.812 Spondylosis without myelopathy or radiculopathy, cervical region; M99.73 Connective tissue and disc stenosis of intervertebral foramina of lumbar region
CPT/HCPCS: 72141; 80048

== ENCOUNTER → 2022-11-03 | Outpatient (CLI) | payer MEDICARE, OTHER ==
[2022-11-03 15:41] LABS: Basophils # (A) 0.02 X 10*3/uL (0.00-0.10); Basophils % (A) 0.3 %; Eosinophils # (A) 0.33 X 10*3/uL (0.04-0.35); Eosinophils % (A) 4.5 %; HCT 40.7 % (37.2-46.3); HGB 12.4 d/dL (12.0-15.0); Lymphocytes # (A) 2.04 X 10*3/uL (0.90-5.00); Lymphocytes % (A) 27.7 %; MCH 27.5 pg (27.0-32.0); MCHC 30.5 d/dL (32.0-37.0); MCV 90.2 FL (80.0-97.0); Mean Platelet Volume 10.7 FL (9.5-12.2); Monocytes # (A) 0.47 X 10*3/uL (0.20-1.00); Monocytes % (A) 6.4 %; NRBC Per 100 WBC 0 X 10*3/uL (0.00-0.01); Neutrophils # (A) 4.48 X 10*3/uL (1.80-7.70); Neutrophils % (A) 60.8 %; Platelet Count 197 X 10*3/uL (140-440); RBC 4.51 X 10*6/uL (4.10-5.20); RDW 14.3 % (11.5-14.5); WBC 7.36 X 10*3/uL (4.50-10.00)
[2022-11-03 16:05] LABS: ALT 20 U/L (8-44); AST 23 U/L (13-35); Albumin 4.6 d/dL (3.8-4.9); Alkaline Phosphatase 82 U/L (41-126); BUN/Creat Ratio 29.29 Ratio (12.00-20.00); Blood Urea Nitrogen 20.5 mg/dL (9.0-27.0); Calcium 9.8 mg/dL (8.7-10.3); Carbon Dioxide 25.3 mmol/L (21.6-31.8); Chloride 105 mmol/L (96-109); Chol/HDL Ratio 3.27 Ratio; Creatine Kinase 46 U/L (26-186); Glucose 145 mg/dL (70-110); Magnesium 1.9 mg/dL (1.5-2.4); Potassium 4.9 mmol/L (3.5-5.5); Sodium 142 mmol/L (135-145); T4, Free (Free Thyroxine) 1.59 ng/dL (0.80-1.80); Total Bilirubin 0.4 mg/dL (0.3-1.2); Total Protein 6.6 d/dL (6.2-8.2)
== END | disposition home or self-care (01) ==
LOC: LABWHC1 08:15
PROVIDERS: ATTEND Internal Medicine
DX: Z11.59 Encounter for screening for other viral diseases (principal); E11.9 Type 2 diabetes mellitus without complications; E03.9 Hypothyroidism, unspecified; N20.0 Calculus of kidney; M85.80 Other specified disorders of bone density and structure, unspecified site
CPT/HCPCS: 36415; 80053; 80061; 82306; 82550; 83036; 83735; 84439; 84443; 84550; 85025; 87521

== ENCOUNTER → 2023-07-13 | Outpatient (CLI) | payer MEDICARE ==
--- NOTE | 2023-07-15 18:04 | MM ---
Reason for Exam: Screening (asymptomatic). Last screening mammogram was performed 12 month(s) ago. Patient History: Menarche at age 14. Patient has no children. Left ovary removed at age 45. Right ovary removed at age 45. Hysterectomy at age 45. Postmenopausal. Patient used Hormonal Contraceptives for 10 years. Estrogen and Progesterone for 9 months. Risk Values: Lily 5 year model risk: 1.9%. NCI Lifetime model risk: 6.7%. Prior Study Comparison: 08/25/2014 Bilateral Screening Mammogram, [facility] [place], [place]. 03/15/2019 Bilateral Screening Mammogram, [facility] [place], [place]. 07/08/2022 Bilateral MG 3D screening mammo w/cad, [facility]. Tissue Density: There are scattered areas of fibroglandular density. Findings: Analyzed By CAD. There is no suspicious group of microcalcifications or new suspicious mass in either breast. Overall Assessment: Negative, BI-RAD 1 Management: Screening Mammogram of both breasts in 1 year. . Patient should continue monthly self-breast exams. A clinical breast exam by your physician is recommended on an annual basis. This exam should not preclude additional follow-up of suspicious palpable abnormalities. Note on Lily scores and lifetime risk: 1. A Lily score greater than 3% is considered moderate risk. If this is the case, consider specialist referral to assess eligibility for a risk reducing agent. 2. If overall lifetime risk for the development of breast cancer is 20% or higher, the patient may qualify for future screening with alternating mammogram and breast MRI. Electronically signed and approved by: Taz Menon M.D. Radiologist
== END | disposition home or self-care (01) ==
LOC: RADMAMWWP 14:00
PROVIDERS: ATTEND Internal Medicine
DX: Z12.31 Encounter for screening mammogram for malignant neoplasm of breast (principal); Z78.0 Asymptomatic menopausal state
CPT/HCPCS: 77063; 77067

== ENCOUNTER 2023-07-21 14:42 | Inpatient (IN) | payer MEDICARE ==
--- NOTE | 2023-07-21 15:12 | ED ---
Back Pain HPI - General Source: patient, RN notes reviewed Mode of arrival: ambulatory Limitations: no limitations - History of Present Illness MD Complaint: back pain <Jennifer Ibarra - Last Filed: 07/21/23 15:12> - General Source: RN notes reviewed <Patty Rainey - Last Filed: 07/21/23 19:46> <Gurpreet Mariscal - Last Filed: 07/21/23 19:58> - General Chief Complaint: Back Pain/Injury Stated Complaint: Fever, chills Time Seen by Provider: 07/21/23 15:10 - History of Present Illness Initial Comments: Quick Note: This is a 68-year-old female who presents to the emergency department for back pain. States that 3 days ago she started to develop low back pain which then seemed to worsen. Pain is worse on the left but does not radiate into the abdomen. Yesterday and into today she started to develop fevers and chills. Also reports burning with urination. She saw her primary care provider today who advised she come to the emergency department to be evaluated for kidney stones. She does have a history of kidney stones but has never had fevers with them. (Jennifer Ibarra) 68-year-old female with history of kidney stones, diabetes, and hypertension presenting to the ER for back pain x 3 days. Pain is worse on the left side. She began to develop fever, chills, dysuria, urinary frequency, and urinary urgency. He has had many stones in the past but states she is usually able to pass them on her own at home. Denies vomiting. (Patty Rainey) - Related Data Home Medications Medication Instructions Recorded Confirmed Levothyroxine Sodium [Synthroid] 150 mcg PO QAM 10/11/15 11/26/21 Sertraline HCl [Zoloft] 150 mg PO HS 10/11/15 11/26/21 metFORMIN HCL [Glucophage] 500 mg PO BID 12/12/20 11/26/21 Butalb/Acetaminophen/Caffeine 1 - 2 cap PO Q4HR PRN 05/21/21 11/26/21 [Fioricet 50-300-40 mg Capsule] Omeprazole [PriLOSEC] 20 mg PO 1400 05/21/21 11/26/21 Acetaminophen [Tylenol Extra 500 - 1,000 mg PO BID PRN 11/22/21 11/26/21 Strength] Methenamine Hippurate [Hiprex] 1 gm PO BID 11/22/21 11/26/21 Naproxen Sodium [Aleve] 220 mg PO BID PRN 11/22/21 11/26/21 Vitamin C Chew. 250 mg PO DAILY 11/22/21 11/26/21 Previous Rx's Medication Instructions Recorded Acetaminophen-Codeine 300-30mg 1 tab PO Q6H PRN 3 Days #12 tablet 12/22/21 [Tylenol w/codeine #3] Allergies Allergy/AdvReac Type Severity Reaction Status Date / Time sulfamethoxazole Allergy Severe Itching Verified 12/22/21 20:08 [From Bactrim] trimethoprim [From Bactrim] Allergy Severe Itching Verified 12/22/21 20:08 Review of Systems ROS Other: All systems not noted in ROS Statement are negative. <Jennifer Ibarra - Last Filed: 07/21/23 15:12> ROS Other: All systems not noted in ROS Statement are negative. <Patty Rainey - Last Filed: 07/21/23 19:46> ROS Other: All systems not noted in ROS Statement are negative. <Gurpreet Mariscal - Last Filed: 07/21/23 19:58> ROS Statement: Those systems with pertinent positive or pertinent negative responses have been documented in the HPI. Past Medical History Past Medical History: Diabetes Mellitus, GERD/Reflux, Hyperlipidemia, Osteoarthritis (OA), Pneumonia, Thyroid Disorder Additional Past Medical History / Comment(s): kidney stones, diverticulitis, migraines, small hiatal hernia, History of Any Multi-Drug Resistant Organisms: None Reported Past Surgical History: Breast Surgery, Cholecystectomy, Hysterectomy, Joint Replacement, Orthopedic Surgery Additional Past Surgical History / Comment(s): left cataract, rt breast biopsy, ectopic , rt knee replacement, ORIF left foot kidney stones Past Anesthesia/Blood Transfusion Reactions: No Reported Reaction Past Psychological History: Depression Smoking Status: Former smoker - Past Family History Father Family Medical History: Deep Vein Thrombosis (DVT) Mother Family Medical History: Cancer Additional Family Medical History / Comment(s): colon <Jennifer Ibarra - Last Filed: 07/21/23 15:12> General Exam Limitations: no limitations <Jennifer Ibarra - Last Filed: 07/21/23 15:12> General appearance: alert, in no apparent distress Head exam: Present: atraumatic, normocephalic, normal inspection Respiratory exam: Present: normal lung sounds bilaterally. Absent: respiratory distress, wheezes, rales, rhonchi, stridor Cardiovascular Exam: Present: regular rate, normal rhythm, normal heart sounds. Absent: systolic murmur, diastolic murmur, rubs, gallop, clicks GI/Abdominal exam: Present: soft, normal bowel sounds. Absent: distended, tenderness, guarding, rebound, rigid Back exam: Present: normal inspection, full ROM, CVA tenderness (L). Absent: CVA tenderness (R), paraspinal tenderness Neurological exam: Present: alert, oriented X3 Psychiatric exam: Present: normal affect, normal mood Skin exam: Present: warm, dry, intact, normal color. Absent: rash <Patty Rainey - Last Filed: 07/21/23 19:46> - General Exam Comments Initial Comments: Visual Physical Exam Vital signs reviewed General: Well-appearing, nontoxic, no acute distress. Head: Normocephalic, atraumatic Eyes: PERRLA, EOMI ENT: Airway patent Chest: Nonlabored breathing Skin: No visual rash, normal skin tone Neuro: Alert and oriented 3 Musculoskeletal: No gross abnormalities (Jennifer Ibarra) Course Vital Signs 07/21/23 07/21/23 14:54 18:38 Temperature 101.6 F H 98.1 F Pulse Rate 77 75 Respiratory 20 18 Rate Blood Pressure 136/58 162/66 O2 Sat by Pulse 98 100 Oximetry Medical Decision Making <Jennifer Ibarra - Last Filed: 07/21/23 15:12> - Lab Data Result diagrams: 07/21/23 15:30 07/21/23 16:15 <Patty Rainey - Last Filed: 07/21/23 19:46> - Lab Data Result diagrams: 07/21/23 15:30 07/21/23 16:15 <Gurpreet Mariscal - Last Filed: 07/21/23 19:58> - Medical Decision Making I performed the QuickNote portion of this chart. Signed Jennifer Ibarra PA-C. (Jennifer Ibarra) Was pt. sent in by a medical professional or institution ([facility], [employer], urgent care, hospital, or [facility]...) When possible be specific @ -No Did you speak to anyone other than the patient for history (EMS, parent, family, police, friend...)? What history was obtained from this source @ -No Did you review nursing and triage notes (agree or disagree)? Why? @ -I reviewed and agree with nursing and triage notes Were old charts reviewed (outside hosp., previous admission, EMS record, old EKG, old radiological studies, urgent care reports/EKG's, [facility] records)? Report findings @ -No old charts were reviewed Differential Diagnosis (chest pain, altered mental status, abdominal pain women, abdominal pain men, vaginal bleeding, weakness, fever, dyspnea, syncope, headache, dizziness, GI bleed, back pain, seizure, CVA, palpatations, mental health, musculoskeletal)? @ -Differential Abdominal Pain Women: Appendicitis, Cholecystitis, diverticulosis, ischemic bowel, pancreatitis, hepatitis, UTI, gastroenteritis, AAA, incarcerated hernia, bowel obstruction, constipation, inflammatory bowel, hepatitis, peptic ulcer disease, splenic infarction, perforated viscus, vulvitis, ovarian torsion, PID, kidney stone, placenta abruption, this is not meant to be an all-inclusive list EKG interpreted by me (3pts min.). @ -None X-rays interpreted by me (1pt min.). @ -None done CT interpreted by me (1pt min.). @ -CT scan revealed 5 mm stone at the left UVJ with mild obstruction U/S interpreted by me (1pt. min.). @ -None done What testing was considered but not performed or refused? (CT, X-rays, U/S, labs)? Why? @ -None What meds were considered but not given or refused? Why? @ -None Did you discuss the management of the patient with other professionals (professionals i.e. [facility], [employer], lab, RT, psych nurse, social media marketing manager, kids activities coach, teacher, wildlife officer, rn case management)? Give summary @ -Case discussed with Dr. Ernst sound physicians as well as Dr. Carey. Dr. Ernst accepts admission at this time with consult to Dr. Carey. Was smoking cessation discussed for >3mins.? @ -No Was critical care preformed (if so, how long)? @ -No Were there social determinants of health that impacted care today? How? (Homelessness, low income, unemployed, alcoholism, drug addiction, transportation, low edu. Level, literacy, decrease access to med. care, assisted, rehab)? @ -No Was there de-escalation of care discussed even if they declined (Discuss DNR or withdrawal of care, Hospice)? DNR status @ -No What co-morbidities impacted this encounter? (DM, HTN, Smoking, COPD, CAD, Cancer, CVA, ARF, Chemo, Hep., AIDS, mental health diagnosis, sleep apnea, morbid obesity)? @ -None Was patient admitted / discharged? Hospital course, mention meds given and route, prescriptions, significant lab abnormalities, going to OR and other pertinent info. @ -Patient was admitted. Patient was seen and evaluated for left back pain x 3 days. Temperature is 101.6., For left CVA tenderness. White blood cell count is 17. CT revealed 5 mm stone at left UVJ with mild obstruction. Urine remarkable for greater than 182 white blood cells and moderate blood. Patient does meet sepsis criteria due to temperature and white blood cell count. Toradol given for pain. Discussed case with Dr. Ernst who accepts admission at this time with consult to Dr. Carey. Discussed case with Dr. Carey who would like to be consulted on this case. Patient was started on IV Rocephin and IV fluids. Case discussed with Dr. Mariscal Undiagnosed new problem with uncertain prognosis? @ -No Drug Therapy requiring intensive monitoring for toxicity (Heparin, Nitro, Insulin, Cardizem)? @ -No Were any procedures done? @ -No Diagnosis/symptom? @ -Left nephrolithiasis, sepsis Acute, or Chronic, or Acute on Chronic? @ -Acute Uncomplicated (without systemic symptoms) or Complicated (systemic symptoms)? @ -Complicated Side effects of treatment? @ -No Exacerbation, Progression, or Severe Exacerbation? @ -No Poses a threat to life or bodily function? How? (Chest pain, USA, ND, pneumonia, PE, COPD, DKA, ARF, appy, cholecystitis, CVA, Diverticulitis, Homicidal, Suicidal, threat to staff... and all critical care pts) @ -Yes, sepsis (Patty Rainey) - Lab Data Lab Results 07/21/23 07/21/23 07/21/23 Range/Units 14:58 14:58 15:30 WBC 17.0 H (3.8-10.6) k/uL RBC 4.17 (3.80-5.40) m/uL Hgb 11.8 (11.4-16.0) gm/dL Hct 35.4 (34.0-46.0) % MCV 84.8 (80.0-100.0) fL MCH 28.3 (25.0-35.0) pg MCHC 33.4 (31.0-37.0) g/dL RDW 14.5 (11.5-15.5) % Plt Count 162 (150-450) k/uL MPV 8.7 Neutrophils % 85 % Lymphocytes % 5 % Monocytes % 9 % Eosinophils % 0 % Basophils % 0 % Neutrophils # 14.4 H (1.3-7.7) k/uL Lymphocytes # 0.8 L (1.0-4.8) k/uL Monocytes # 1.5 H (0-1.0) k/uL Eosinophils # 0.0 (0-0.7) k/uL Basophils # 0.0 (0-0.2) k/uL Sodium (137-145) mmol/L Potassium (3.5-5.1) mmol/L Chloride (98-107) mmol/L Carbon Dioxide (22-30) mmol/L Anion Gap mmol/L BUN (7-17) mg/dL Creatinine (0.52-1.04) mg/dL Est GFR (CKD-EPI)AfAm (>60 ml/min/1.73 sqM) Est GFR (CKD-EPI)NonAf (>60 ml/min/1.73 sqM) Glucose (74-99) mg/dL Plasma Lactic Acid Anton 1.2 (0.7-2.0) mmol/L Calcium (8.4-10.2) mg/dL Total Bilirubin (0.2-1.3) mg/dL AST (14-36) U/L ALT (4-34) U/L Alkaline Phosphatase (38-126) U/L Total Protein (6.3-8.2) g/dL Albumin (3.5-5.0) g/dL Lipase (23-300) U/L Urine Color Yellow Urine Appearance Cloudy H (Clear) Urine pH 8.0 (5.0-8.0) Ur Specific Center 1.018 (1.001-1.035) Urine Protein 2+ H (Negative) Urine Glucose (UA) Trace H (Negative) Urine Ketones Negative (Negative) Urine Blood Moderate H (Negative) Urine Nitrite Negative (Negative) Urine Bilirubin Negative (Negative) Urine Urobilinogen <2.0 (<2.0) mg/dL Ur Leukocyte Esterase Large H (Negative) Urine RBC 26 H (0-5) /hpf Urine WBC >182 H (0-5) /hpf Urine WBC Clumps Few H (None) /hpf Urine Bacteria Rare H (None) /hpf Urine Mucus Rare H (None) /hpf 07/21/23 Range/Units 16:15 WBC (3.8-10.6) k/uL RBC (3.80-5.40) m/uL Hgb (11.4-16.0) gm/dL Hct (34.0-46.0) % MCV (80.0-100.0) fL MCH (25.0-35.0) pg MCHC (31.0-37.0) g/dL RDW (11.5-15.5) % Plt Count (150-450) k/uL MPV Neutrophils % % Lymphocytes % % Monocytes % % Eosinophils % % Basophils % % Neutrophils # (1.3-7.7) k/uL Lymphocytes # (1.0-4.8) k/uL Monocytes # (0-1.0) k/uL Eosinophils # (0-0.7) k/uL Basophils # (0-0.2) k/uL Sodium 135 L (137-145) mmol/L Potassium 3.8 (3.5-5.1) mmol/L Chloride 105 (98-107) mmol/L Carbon Dioxide 21 L (22-30) mmol/L Anion Gap 9 mmol/L BUN 13 (7-17) mg/dL Creatinine 0.69 (0.52-1.04) mg/dL Est GFR (CKD-EPI)AfAm >90 (>60 ml/min/1.73 sqM) Est GFR (CKD-EPI)NonAf >90 (>60 ml/min/1.73 sqM) Glucose 183 H (74-99) mg/dL Plasma Lactic Acid Anton (0.7-2.0) mmol/L Calcium 8.9 (8.4-10.2) mg/dL Total Bilirubin 0.9 (0.2-1.3) mg/dL AST 21 (14-36) U/L ALT 17 (4-34) U/L Alkaline Phosphatase 88 (38-126) U/L Total Protein 6.4 (6.3-8.2) g/dL Albumin 3.8 (3.5-5.0) g/dL Lipase 35 (23-300) U/L Urine Color Urine Appearance (Clear) Urine pH (5.0-8.0) Ur Specific Center (1.001-1.035) Urine Protein (Negative) Urine Glucose (UA) (Negative) Urine Ketones (Negative) Urine Blood (Negative) Urine Nitrite (Negative) Urine Bilirubin (Negative) Urine Urobilinogen (<2.0) mg/dL Ur Leukocyte Esterase (Negative) Urine RBC (0-5) /hpf Urine WBC (0-5) /hpf Urine WBC Clumps (None) /hpf Urine Bacteria (None) /hpf Urine Mucus (None) /hpf Disposition <Jennifer Ibarra - Last Filed: 07/21/23 15:12> Time of Disposition: 19:51 <Patty Rainey - Last Filed: 07/21/23 19:46> <Gurpreet Mariscal - Last Filed: 07/21/23 19:58> Clinical Impression: Left nephrolithiasis, Sepsis Disposition: ADMITTED IP TO THIS [facility] Condition: Stable Referrals: Harish Ruth DO [Primary Care Provider] - 1-2 days
[2023-07-21 16:09] LABS: Appearance,Urine Cloudy (Clear); Bacteria,Urine Rare /hpf; Bilirubin,Urine Negative (Negative); Blood,Urine Moderate (Negative); Color,Urine Yellow; Glucose,Urine (UA) Trace (Negative); Ketones,Urine Negative (Negative); Leukocyte Esterase,Urine Large (Negative); Mucus,Urine Rare /hpf; Nitrite,Urine Negative (Negative); Protein,Urine 2+ (Negative); RBC,Urine 26 /hpf (0-5); Specific Gravity,Urine 1.018 (1.001-1.035); Urobilinogen,Urine <2.0 mg/dL (<2.0); WBC,Urine >182 /hpf (0-5)
[2023-07-21 16:32] LABS: Basophils % (A) 0 %; Eosinophils % (A) 0 %; HCT 35.4 % (34.0-46.0); HGB 11.8 gm/dL (11.4-16.0); Lymphocytes # (A) 0.8 k/uL (1.0-4.8); Lymphocytes % (A) 5 %; MCH 28.3 pg (25.0-35.0); MCHC 33.4 g/dL (31.0-37.0); MCV 84.8 fL (80.0-100.0); Mean Platelet Volume 8.7; Monocytes # (A) 1.5 k/uL (0-1.0); Monocytes % (A) 9 %; Neutrophils # (A) 14.4 k/uL (1.3-7.7); Neutrophils % (A) 85 %; Platelet Count 162 k/uL (150-450); RBC 4.17 m/uL (3.80-5.40); RDW 14.5 % (11.5-15.5)
[2023-07-21 16:37] LABS: Chloride 105 mmol/L (98-107)
[2023-07-21 16:40] LABS: ALT 17 U/L (4-34); AST 21 U/L (14-36); African American GFR (CKD) >90 (>60 ml/min/1.73 sqM); Albumin 3.8 g/dL (3.5-5.0); Alkaline Phosphatase 88 U/L (38-126); Anion Gap 9 mmol/L; Blood Urea Nitrogen 13 mg/dL (7-17); Calcium 8.9 mg/dL (8.4-10.2); Carbon Dioxide 21 mmol/L (22-30); Glucose 183 mg/dL (74-99); Lipase 35 U/L (23-300); Non-African American GFR(CKD) >90 (>60 ml/min/1.73 sqM); Potassium 3.8 mmol/L (3.5-5.1); Sodium 135 mmol/L (137-145); Total Bilirubin 0.9 mg/dL (0.2-1.3); Total Protein 6.4 g/dL (6.3-8.2)
--- NOTE | 2023-07-21 17:04 | CT ---
EXAMINATION TYPE: CT abdomen pelvis wo con DATE OF EXAM: 07/21/2023 COMPARISON: 05/09/2022 HISTORY: 68-year-old female left flank pain CT DLP: 701.3 mGycm. Automated exposure control for dose reduction was used. TECHNIQUE: Contiguous axial scanning of the abdomen and pelvis without IV contrast. Coronal and sagit kayode reconstructions performed. FINDINGS: The heart is normal size without pericardial effusion. Lung bases clear without pleural effusion. Tiny hiatal hernia. Liver is mildly enlarged at 18.0 cm the diminished attenuation. Cholecystectomy clips. Adrenal glands, spleen, and mildly atrophic pancreas show no gross abnormality. 1.4 cm nonobstructing right renal calculus. Punctate 2 mm nonobstructive right renal calculus. 4 nonobstructive left renal calculi, largest measuring 8 mm. However, there is a 3 mm dependent stone within the left renal pelvis and a 5 mm stone at the left UPJ. Mild left-sided hydronephrosis is not ed. No dilated small bowel, free fluid, or free air. No mesenteric or retroperitoneal lymphadenopathy. Normal appendix. Mild overall stool burden. Diverticulosis along the left hemicolon especially the mi d to distal sigmoid colon. No pericolonic inflammatory change. Bladder partially distended. Uterus surgically absent. Neither ovary clearly seen. No abnormal fluid collection in the pelvis or pelvic lymphadenopathy. Pelvic phleboliths noted. Bones: Moderate to advanced degenerative disc disease in the visualized lower thoracic and mid to low er lumbar spine with hypertrophic facet arthropathy. IMPRESSION: 1. A 5 mm stone at the left UVJ with mild obstructive uropathy. There is also a 3 mm stone free floa ting in the left renal pelvis. 2. Additional bilateral nonobstructing renal calculi measuring up to 1.4 cm on the right. 3. Left-sided colonic diverticulosis without acute diverticulitis.
[2023-07-21] MEDS: ACETAMINOPHEN TAB 500 MG TAB PO STA (18:01)
[2023-07-21] MEDS: KETOROLAC 15 MG/ML 1 ML VIAL IVP STA (18:05)
[2023-07-21] MEDS: SODIUM CHLORIDE 0.9% 1,000 ML IV STA ×3 (18:07→18:09)
[2023-07-21] MEDS ORDERED: NALOXONE 0.4 MG/ML 1 ML VIAL IV PRN (19:44)
--- NOTE | 2023-07-21 19:50 | P.GSCN ---
History of Present Illness Consult date: 07/21/23 Reason for Consult: Left ureteral stones, right renal stones History of present illness: This is a 68-year-old female that presented to the hospital with left-sided flank pain associated with fevers and chills. She indicated at home she was f ebrile at 103. Indicated symptoms associated with urinary frequency and urgency. Denies any gross hematuria. She was seen by her primary care physician this morning, and started on IM ceftriaxone and p.o. Cipro, but she had persistent fever thus she presented to the ER. On presentation to the ER she was febrile at 101.3. She does have history of recurrent kidney stones, and has required ESWL and ureteroscopy's in the past to address her stone. Previously she followed up with a urologist in [place]. Indicated she has most recently passed a kidney stone spontaneously. In the ER she underwent a CT abdomen pelvis that showed evidence of a 5 mm left-sided proximal ureteral stones with hydroureteronephrosis, and evidence of a 1.4 cm right-sided renal stone. She did have leukocytosis at 17 on presentation. Review of Systems - Constitutional Reports chills, Reports fatigue, Reports fever - EENT Ears, nose, mouth and throat: Denies dysphagia - Cardiovascular Denies chest pain, Denies shortness of breath - Gastrointestinal Reports as per HPI, Reports abdominal pain, Reports nausea, Denies vomiting - Genitourinary Genitourinary: Reports flank pain, Denies dysuria, Denies hematuria Past Medical History Past Medical History: Diabetes Mellitus, GERD/Reflux, Hyperlipidemia, Osteoarthritis (OA), Pneumonia, Thyroid Disorder Additional Past Medical History / Comment(s): kidney stones, diverticulitis, migraines, small hiatal hernia, History of Any Multi-Drug Resistant Organisms: None Reported Past Surgical History: Breast Surgery, Cholecystectomy, Hysterectomy, Joint Replacement, Orthopedic Surgery Additional Past Surgical History / Comment(s): left cataract, rt breast biopsy, ectopic , rt knee replacement, ORIF left foot kidney stones Past Anesthesia/Blood Transfusion Reactions: No Reported Reaction Past Psychological History: Depression Smoking Status: Former smoker - Past Family History Father Family Medical History: Deep Vein Thrombosis (DVT) Mother Family Medical History: Cancer Additional Family Medical History / Comment(s): colon Medications and Allergies Home Medications Medication Instructions Recorded Confirmed Type Levothyroxine Sodium [Synthroid] 150 mcg PO QAM 10/11/15 11/26/21 History Sertraline HCl [Zoloft] 150 mg PO HS 10/11/15 11/26/21 History metFORMIN HCL [Glucophage] 500 mg PO BID 12/12/20 11/26/21 History Butalb/Acetaminophen/Caffeine 1 - 2 cap PO Q4HR PRN 05/21/21 11/26/21 History [Fioricet 50-300-40 mg Capsule] Omeprazole [PriLOSEC] 20 mg PO 1400 05/21/21 11/26/21 History Acetaminophen [Tylenol Extra 500 - 1,000 mg PO BID PRN 11/22/21 11/26/21 History Strength] Methenamine Hippurate [Hiprex] 1 gm PO BID 11/22/21 11/26/21 History Naproxen Sodium [Aleve] 220 mg PO BID PRN 11/22/21 11/26/21 History Vitamin C Chew. 250 mg PO DAILY 11/22/21 11/26/21 History Acetaminophen-Codeine 300-30mg 1 tab PO Q6H PRN 3 Days #12 tablet 12/22/21 Rx [Tylenol w/codeine #3] Allergies Allergy/AdvReac Type Severity Reaction Status Date / Time sulfamethoxazole Allergy Severe Itching Verified 12/22/21 20:08 [From Bactrim] trimethoprim [From Bactrim] Allergy Severe Itching Verified 12/22/21 20:08 Surgical - Exam Vital Signs Temp Pulse Resp BP Pulse Ox 101.6 F H 77 20 136/58 98 07/21/23 14:54 07/21/23 14:54 07/21/23 14:54 07/21/23 14:54 07/21/23 14:54 - General no distress, moderate pain - Eyes normal ocular movement, no pale - ENT normal nares, normal mucosa - Respiratory normal expansion, normal respiratory effort - Abdomen Abdomen: soft, tender (Left flank) - Psychiatric oriented to time, oriented to person, oriented to place Results - Labs 07/21/23 15:30 07/21/23 16:15 Abnormal Lab Results - Last 24 Hours (Table) 07/21/23 07/21/23 07/21/23 Range/Units 14:58 15:30 16:15 WBC 17.0 H (3.8-10.6) k/uL Neutrophils # 14.4 H (1.3-7.7) k/uL Lymphocytes # 0.8 L (1.0-4.8) k/uL Monocytes # 1.5 H (0-1.0) k/uL Sodium 135 L (137-145) mmol/L Carbon Dioxide 21 L (22-30) mmol/L Glucose 183 H (74-99) mg/dL Urine Appearance Cloudy H (Clear) Urine Protein 2+ H (Negative) Urine Glucose (UA) Trace H (Negative) Urine Blood Moderate H (Negative) Ur Leukocyte Esterase Large H (Negative) Urine RBC 26 H (0-5) /hpf Urine WBC >182 H (0-5) /hpf Urine WBC Clumps Few H (None) /hpf Urine Bacteria Rare H (None) /hpf Urine Mucus Rare H (None) /hpf Diabetes panel 07/21/23 Range/Units 16:15 Sodium 135 L (137-145) mmol/L Potassium 3.8 (3.5-5.1) mmol/L Chloride 105 (98-107) mmol/L Carbon Dioxide 21 L (22-30) mmol/L BUN 13 (7-17) mg/dL Creatinine 0.69 (0.52-1.04) mg/dL Glucose 183 H (74-99) mg/dL Calcium 8.9 (8.4-10.2) mg/dL AST 21 (14-36) U/L ALT 17 (4-34) U/L Alkaline Phosphatase 88 (38-126) U/L Total Protein 6.4 (6.3-8.2) g/dL Albumin 3.8 (3.5-5.0) g/dL Calcium panel 07/21/23 Range/Units 16:15 Calcium 8.9 (8.4-10.2) mg/dL Albumin 3.8 (3.5-5.0) g/dL Pituitary panel 07/21/23 Range/Units 16:15 Sodium 135 L (137-145) mmol/L Potassium 3.8 (3.5-5.1) mmol/L Chloride 105 (98-107) mmol/L Carbon Dioxide 21 L (22-30) mmol/L BUN 13 (7-17) mg/dL Creatinine 0.69 (0.52-1.04) mg/dL Glucose 183 H (74-99) mg/dL Calcium 8.9 (8.4-10.2) mg/dL Adrenal panel 07/21/23 Range/Units 16:15 Sodium 135 L (137-145) mmol/L Potassium 3.8 (3.5-5.1) mmol/L Chloride 105 (98-107) mmol/L Carbon Dioxide 21 L (22-30) mmol/L BUN 13 (7-17) mg/dL Creatinine 0.69 (0.52-1.04) mg/dL Glucose 183 H (74-99) mg/dL Calcium 8.9 (8.4-10.2) mg/dL Total Bilirubin 0.9 (0.2-1.3) mg/dL AST 21 (14-36) U/L ALT 17 (4-34) U/L Alkaline Phosphatase 88 (38-126) U/L Total Protein 6.4 (6.3-8.2) g/dL Albumin 3.8 (3.5-5.0) g/dL - Imaging CT scan - abdomen: image reviewed (5 mm left-sided proximal ureteral stone, 1.4 cm right-sided renal stone) Assessment and Plan Assessment: 68-year-old female with sepsis secondary to a 5 mm left-sided proximal stone, also evidence of a 1.4 cm right-sided renal stone, discussed with her given her septic presentation and obstructing stone I do recommend proceeding with stent insertion. Discussed with her the stent to allow decompression of the collecting system, but she will eventually require left-sided ureteroscopy and holmium laser as an outpatient once sepsis resolves. 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 Discussed with her at this point we can proceed with bilateral stent insertion, followed by a bilateral ureteroscopy with holmium laser as an outpatient in 3 to 4 weeks -Keep n.p.o. -OR for cystoscopy and bilateral stent insertion
[2023-07-21] MEDS ORDERED: LIDOCAINE 1% INJ 10MG/ML (20 ML MDV) ONE (20:11)
[2023-07-21] MEDS ORDERED: PROPOFOL 10 MG/ML 20 ML VIAL IV ONE (20:11)
[2023-07-21] MEDS ORDERED: MIDAZOLAM 2 MG/2 ML VIAL ONE (20:11)
[2023-07-21] MEDS: SODIUM CHLORIDE 0.9% 1,000 ML IV ONE (20:11)
--- NOTE | 2023-07-21 20:35 | P.OP ---
Date of Procedure: 07/21/23 Preoperative Diagnosis: Left ureteral stone, right renal stone Postoperative Diagnosis: Same Procedure(s) Performed: Cystoscopy and bilateral stent insertion Implants: 6 Australian by 24 cm stent in the bilateral ureters Anesthesia: MAC Surgeon: Cruzito Carey Estimated Blood Loss (ml): 1 Pathology: none sent Condition: stable Disposition: PACU Indications for Procedure: 68-year-old female with sepsis secondary to a 5 mm left-sided proximal stone, also evidence of a 1.4 cm right-sided renal stone, discussed with her given her septic presentation and obstructing stone I do recommend proceeding with stent insertion. Discussed with her the stent to allow decompression of the collecting system, but she will eventually require left-sided ureteroscopy and holmium laser as an outpatient once sepsis resolves. 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 Discussed with her at this point we can proceed with bilateral stent insertion, followed by a bilateral ureteroscopy with holmium laser as an outpatient in 3 to 4 weeks. Risk benefit and rationale of surgery was discussed in detail Description of Procedure: Patient brought to the operating room, sedation was induced. She was prepped and draped in sterile fashion placed in a dorsolithotomy position. Cystoscopy with a 21 Australian sheath was inserted per urethra, cystoscopy was performed which showed no abnormality within the bladder. Attention was then carried to the left ureteral orifice which was intubated with a sensor wire. Next ureteral stent was passed over the wire, the proximal curl was visualized on fluoroscopy and the distal curl was visualized using the cystoscope. Cloudy urine drained from the collecting system. Attention was then carried to the right side which was also intubated with a sensor wire, the wire was advanced under fluoroscopy into the kidney under. Next a ureteral stent was passed over the wire, the proximal curl was visualized on fluoroscopy and the distal curl was visualized using the cystoscope. The bladder was emptied at the end of the case. Patient tolerated procedure well was taken to recovery in stable condition
[2023-07-22] MEDS: ACETAMINOPHEN TAB 325 MG TAB PO PRN (01:55)
[2023-07-22] MEDS ORDERED: ONDANSETRON 4 MG/2 ML VIAL IVP PRN (02:13)
[2023-07-22] MEDS ORDERED: DEXTROSE 50% SYRINGE 50 ML IVP PRN ×2 (02:15)
--- NOTE | 2023-07-22 02:39 | P.HPIM ---
History of Present Illness H&P Date: 07/21/23 Chief Complaint: Left flank pain 68-year-old female with diabetes mellitus and hypothyroidism, with history of recurrent kidney stone Patient coming in for evaluation of left flank pain of 3 days duration , that goes across her lower back and left hip, no abd pain, associated with some fevers and chills, and urine changed to a brown color denies urgency and dysuria , denies nausea and vomiting She was seen by her primary care doctor this morning and she was given IM in jection of Rocephin and p.o. Cipro but due to persistent symptoms and fever she decided to come into the ER for evaluation Patient does report history of kidney stones requiring scoping and shockwave lithotripsy. In the ED CT scan of the abdomen showed CT scan of the abdomen showed left 5 mm stone in the left UVJ with mild hydronephrosis , 3 mm renal stone floating in the left renal pelvis, and a right renal stone 1.4 cm. Urology performed cystoscopy with bilateral stent insertion to decompress the collecting system which she tolerated well review of systems Pertinent positives as noted in HPI. All other systems were reviewed and are negative on exam Constitutional: No acute distress, conversant, pleasant Eyes: Anicteric sclerae, moist conjunctiva, Pupils equal round reactive to light ENMT: NC/AT Oropharynx clear, no erythema, or exudates Neck: Supple, no masses, or JVD No carotid bruits No thyromegaly Lungs: Clear to auscultation Clear to percussion Normal respiratory effort, no accessory muscle use Cardiovascular: Heart regular in rate and rhythm, No murmurs, gallops, or rubs No peripheral edema Abdominal: Soft Nontender, no guarding, rebound or rigidity Abdomen moving with respiration Normoactive bowel sounds Extremities: No digital cyanosis No clubbing Pedal pulses intact and symmetrical Radial pulses intact and symmetrical No calf tenderness Psychiatric: Alert and oriented to person, place and time Appropriate affect fair judgement Neuro Muscles Strength 5/5 in all 4 extremities Sensation to light touch grossly present throughout Cranial nerves II-XII grossly intact Past Medical History Past Medical History: Diabetes Mellitus, GERD/Reflux, Hyperlipidemia, Osteoarthritis (OA), Pneumonia, Thyroid Disorder Additional Past Medical History / Comment(s): kidney stones, diverticulitis, migraines, small hiatal hernia, History of Any Multi-Drug Resistant Organisms: None Reported Past Surgical History: Breast Surgery, Cholecystectomy, Hysterectomy, Joint Replacement, Orthopedic Surgery Additional Past Surgical History / Comment(s): left cataract, rt breast biopsy, ectopic , rt knee replacement, ORIF left foot kidney stones Past Anesthesia/Blood Transfusion Reactions: No Reported Reaction Past Psychological History: Depression Smoking Status: Former smoker Past Alcohol Use History: Rare Additional Past Alcohol Use History / Comment(s): quit smoking 2008, started smoking age 15 Past Drug Use History: None Reported - Past Family History Father Family Medical History: Deep Vein Thrombosis (DVT) Mother Family Medical History: Cancer Additional Family Medical History / Comment(s): colon Medications and Allergies Home Medications Medication Instructions Recorded Confirmed Type Levothyroxine Sodium [Synthroid] 150 mcg PO QAM 10/11/15 11/26/21 History Sertraline HCl [Zoloft] 150 mg PO HS 10/11/15 11/26/21 History metFORMIN HCL [Glucophage] 500 mg PO BID 12/12/20 11/26/21 History Butalb/Acetaminophen/Caffeine 1 - 2 cap PO Q4HR PRN 05/21/21 11/26/21 History [Fioricet 50-300-40 mg Capsule] Omeprazole [PriLOSEC] 20 mg PO 1400 05/21/21 11/26/21 History Acetaminophen [Tylenol Extra 500 - 1,000 mg PO BID PRN 11/22/21 11/26/21 History Strength] Methenamine Hippurate [Hiprex] 1 gm PO BID 11/22/21 11/26/21 History Naproxen Sodium [Aleve] 220 mg PO BID PRN 11/22/21 11/26/21 History Vitamin C Chew. 250 mg PO DAILY 11/22/21 11/26/21 History Acetaminophen-Codeine 300-30mg 1 tab PO Q6H PRN 3 Days #12 tablet 12/22/21 Rx [Tylenol w/codeine #3] Allergies Allergy/AdvReac Type Severity Reaction Status Date / Time sulfamethoxazole Allergy Severe Itching Verified 12/22/21 20:08 [From Bactrim] trimethoprim [From Bactrim] Allergy Severe Itching Verified 12/22/21 20:08 Physical Exam Vitals: Vital Signs Temp Pulse Pulse Resp BP BP Pulse Ox 07/21/23 21:28 98.9 F 65 16 130/70 97 07/21/23 21:05 63 16 116/57 96 07/21/23 20:55 62 16 130/60 96 07/21/23 20:40 97.7 F 83 16 142/63 96 07/21/23 18:38 98.1 F 75 18 162/66 100 07/21/23 14:54 101.6 F H 77 20 136/58 98 Intake and Output 07/21/23 07/21/23 07/22/23 14:59 22:59 06:59 Intake Total 300 Output Total 0 Balance 300 Intake: IV 300 Output: Estimated Blood Loss 0 Other: # Voids 1 Weight 82.554 kg 82.554 kg Results CBC & Chem 7: 07/21/23 15:30 07/21/23 16:15 Labs: Abnormal Lab Results - Last 24 Hours (Table) 07/21/23 07/21/23 07/21/23 Range/Units 14:58 15:30 16:15 WBC 17.0 H (3.8-10.6) k/uL Neutrophils # 14.4 H (1.3-7.7) k/uL Lymphocytes # 0.8 L (1.0-4.8) k/uL Monocytes # 1.5 H (0-1.0) k/uL Sodium 135 L (137-145) mmol/L Carbon Dioxide 21 L (22-30) mmol/L Glucose 183 H (74-99) mg/dL Urine Appearance Cloudy H (Clear) Urine Protein 2+ H (Negative) Urine Glucose (UA) Trace H (Negative) Urine Blood Moderate H (Negative) Ur Leukocyte Esterase Large H (Negative) Urine RBC 26 H (0-5) /hpf Urine WBC >182 H (0-5) /hpf Urine WBC Clumps Few H (None) /hpf Urine Bacteria Rare H (None) /hpf Urine Mucus Rare H (None) /hpf Assessment and Plan Assessment: 68-year-old female diabetes mellitus hypothyroid and history of recurrent kidney stones coming in with left flank pain and urinary symptoms CT scan of the abdomen in the ED showed left proximal ureteral 5mm stone with mild hydronephrosis , I discussed case with ED doctor and accepted the admission for sepsis secondary to obstructive uropathy and pyelonephritis with anticipated l ength of stay more than 2 midnights Sepsis secondary to pyelonephritis (white blood count of 17 and temperature of 101.6) Left obstructive uropathy secondary to 5 mm proximal ureteral stone Urology performed cystoscopy with bilateral stent insertion to decompress the collecting system Check blood cultures Continue with Rocephin 1 g IV piggyback daily Tylenol as needed for fever IV fluid hydration with normal saline patient received 2 L in the ED per sepsis protocol continue with 120 cc/h Pain control with morphine 4 mg IV push as needed every 4 hours Monitor vital signs Monitor urine output CT scan of the abdomen showed left 5 mm stone in the left UVJ with mild hydronephrosis , 3 mm renal stone floating in the left renal pelvis, and a right renal stone 1.4 cm Blood work showed white count of 17, lactic acid unremarkable 1.2 Renal function sodium 135 potassium 3.8 BUN 13 creatinine 0.69 unremarkable Urine analysis showed large leukocyte esterase and microscopic hematuria Diabetes mellitus Insulin sliding scale Hypothyroid Continue with levothyroxine Full code DVT prophylaxis Lovenox 40 mg subcu daily GI prophylaxis continue with Protonix 40 mg p.o. daily
[2023-07-22] MEDS: MORPHINE SULFATE 4 MG/ML SYRINGE IVP PRN (03:00)
[2023-07-22] MEDS: SODIUM CHLORIDE 0.9% 1,000 ML IV SCH (03:14)
[2023-07-22 05:21] LABS: Glucose,Whole Blood 219 mg/dL (70-110)
[2023-07-22] MEDS: INSULIN ASPART (NovoLOG) 100 UNIT/ML VIAL SQ SCH (06:11)
[2023-07-22] MEDS: LEVOTHYROXINE 75 MCG TAB PO SCH (06:11)
--- NOTE | 2023-07-22 08:26 | FL ---
EXAMINATION TYPE: FL guidance operating room Intraoperative/procedural fluoroscopic services were pro vided. Total fluoroscopy time is 14.7 seconds with a total of 2 submitted images to PACS. Please see the operative/procedural note for further details. DAP: 1.1828 Gycm2
[2023-07-22] MEDS: ENOXAPARIN 40 MG/0.4 ML SYRINGE SQ SCH (09:59)
--- NOTE | 2023-07-22 13:05 | P.PN ---
Subjective Progress Note Date: 07/22/23 underwent Stent insertions yesterday, complaining of bladder pressure. Denies any fevers or chills, having minimal flank pain at this point Objective - Vital Signs Vital signs: Vital Signs Temp 97.2 F L 07/22/23 08:25 Pulse 65 07/22/23 08:25 Resp 17 07/22/23 08:25 BP 121/62 07/22/23 08:25 Pulse Ox 98 07/22/23 08:25 FiO2 Intake & Output 07/21/23 07/22/23 07/22/23 18:59 06:59 18:59 Intake Total 300 260 Output Total 0 Balance 300 260 Weight 82.554 kg 82.554 kg Intake: IV 300 Oral 260 Output: Estimated Blood Loss 0 Other: Voiding Method Toilet # Voids 3 - Labs CBC & Chem 7: 07/21/23 15:30 07/21/23 16:15 Labs: Abnormal Lab Results - Last 24 Hours (Table) 07/21/23 07/21/23 07/21/23 Range/Units 14:58 15:30 16:15 WBC 17.0 H (3.8-10.6) k/uL Neutrophils # 14.4 H (1.3-7.7) k/uL Lymphocytes # 0.8 L (1.0-4.8) k/uL Monocytes # 1.5 H (0-1.0) k/uL Sodium 135 L (137-145) mmol/L Carbon Dioxide 21 L (22-30) mmol/L Glucose 183 H (74-99) mg/dL POC Glucose (mg/dL) (70-110) mg/dL Urine Appearance Cloudy H (Clear) Urine Protein 2+ H (Negative) Urine Glucose (UA) Trace H (Negative) Urine Blood Moderate H (Negative) Ur Leukocyte Esterase Large H (Negative) Urine RBC 26 H (0-5) /hpf Urine WBC >182 H (0-5) /hpf Urine WBC Clumps Few H (None) /hpf Urine Bacteria Rare H (None) /hpf Urine Mucus Rare H (None) /hpf 07/22/23 Range/Units 05:20 WBC (3.8-10.6) k/uL Neutrophils # (1.3-7.7) k/uL Lymphocytes # (1.0-4.8) k/uL Monocytes # (0-1.0) k/uL Sodium (137-145) mmol/L Carbon Dioxide (22-30) mmol/L Glucose (74-99) mg/dL POC Glucose (mg/dL) 219 H (70-110) mg/dL Urine Appearance (Clear) Urine Protein (Negative) Urine Glucose (UA) (Negative) Urine Blood (Negative) Ur Leukocyte Esterase (Negative) Urine RBC (0-5) /hpf Urine WBC (0-5) /hpf Urine WBC Clumps (None) /hpf Urine Bacteria (None) /hpf Urine Mucus (None) /hpf Assessment and Plan Assessment: 68-year-old female with a history of a 5 mm left-sided ureteral stone, and 1.4 cm right-sided renal stone, status post bilateral stent insertion. Doing well this morning is having spasm secondary to the stent -Continue IV antibiotics until cultures finalized -Will start Ditropan XL for bladder spasms -Will arrange for outpatient bilateral ureteroscopy's with holmium laser once her sepsis resolves
[2023-07-22] MEDS: PANTOPRAZOLE 40 MG TABLET PO SCH (13:42)
--- NOTE | 2023-07-22 15:21 | P.PN ---
Subjective Progress Note Date: 07/22/23 Hospital course: Patient is a pleasant 68-year-old female with a past medical history of type II pxo-kiawqet-kdpjvtcmh diabetes mellitus, hypothyroidism, hyperlipidemia, GERD, and recurrent kidney stones. She presented to the hospital on 07/21/2023 with a chief complaint of left flank pain. Patient was under care of her PCP and received IM injection of Rocephin followed by p.o. ciprofloxacin, but had worsening symptoms and brown discoloration of urine so she came to the emergency department for evaluation. Upon arrival to the hospital, patient underwent e valuation in the emergency department. Vital signs upon arrival show blood pressure 136/58, heart rate 77, respiratory rate 20, temp 101.6 F, and SpO2 of 98% on room air. Labs were completed and reviewed. CBC showing leukocytosis with WBC count of 17.0. BMP showing mild hypocarbia with bicarb of 21 otherwise normal findings. Lactic acid 1.2. Liver profile unremarkable. Lipase is normal findings at 35. Urinalysis positive for protein, glucose, blood, leukocyte esterase 26 RBCs, and greater than [address] abdomen and pelvis with without contrast was completed showing a 5 mm stone at the left UVJ with mild obstructive uropathy and a 3 mm stone floating in the left renal pelvis, additional bilateral nonobstructing calculi measuring up to 1.4 cm on the right, and left-sided colonic diverticulosis without acute diverticulitis. Patient was admitted under our services with consultation to urology. Physical exam: Patient was seen and fully evaluated at bedside this morning. She continues to report left-sided flank pain radiating down into left groin. She denies any further episodes of nausea or vomiting, she does report having dysuria and hematuria. She denies frequency or urgency at this time. Vital signs reviewed and stable. General: Nontoxic, no distress and appears stated age. Derm: Skin warm and dry, normal coloration for ethnicity. Head: Atraumatic, normocephalic and symmetric. Eyes: EOMs intact, no lid lag, and anicteric sclera Mouth: no lip lesions, mucus membranes moist Cardiovascular: regular rate and rhythm with normal S1S2, no murmur, positive posterior tibial pulses bilaterally, and cap refill < 2 seconds. Lungs: Respirations even, regular, and unlabored on room air. Lungs CTA bilaterally, no rhonchi, no rales, no wheezing, and no accessory muscle usage. Abdominal: soft, nontender to palpation, no guarding, no appreciable organomegaly Ext: ROM intact. No gross muscle atrophy, no edema, no contractures Neuro: Speech clear, face symmetrical and CN II-XII grossly intact with no noted focal neuro deficits Psych: Alert and oriented to person, place, time, and situation. Appropriate and pleasant affect. Assessment and Plan of Care: Pyelonephritis with obstructive uropathy secondary to ureteral stone, failed outpatient antibiotic course Sepsis upon arrival, secondary to above -Urology following, took patient for cystoscopy and bilateral stent insertion on 07/21/2023 -Continue IV antibiotics with Rocephin 2 g IVPB every 24 hours. -Follow-up on urine culture results -Follow-up blood culture results -Continue with gentle IV fluid hydration. -Monitor I's and O's. Type II dkc-quvqifr-bhqcjotqu diabetes mellitus -Hold metformin and patient placed on glycemic protocol with NovoLog sliding scale. Data and imaging reviewed: Labs were completed and reviewed. CBC showing leukocytosis with WBC count of 17.0. BMP showing mild hypocarbia with bicarb of 21 otherwise normal findings. Lactic acid 1.2. Liver profile unremarkable. Lipase is normal findings at 35. Urinalysis positive for protein, glucose, blood, leukocyte esterase 26 RBCs, and greater than [address] abdomen and pelvis with without contrast was completed showing a 5 mm stone at the left UVJ with mild obstructive uropathy and a 3 mm stone floating in the left renal pelvis, additional bilateral nonobstructing calculi measuring up to 1.4 cm on the right, and left-sided colonic diverticulosis without acute diverticulitis Operative report reviewed. CODE STATUS: Full code DVT prophylaxis: Lovenox Anticipated discharge date: Clinical course to determine Anticipated discharge place: Clinical course to determine Patient was seen independently by Nurse Pracitioner. This document was prepared using [employer] dictation software. Please allow for errors in cotton cleaner, while rare they do occur. Kyle Olivas NP rendered care for this patient independently, reviewed the findings and plan as documented in the note above. I did not physically speak with or examine the patient on this date. Objective - Vital Signs Vital signs: Vital Signs Temp 97.2 F L 07/22/23 08:25 Pulse 65 07/22/23 08:25 Resp 17 07/22/23 08:25 BP 121/62 07/22/23 08:25 Pulse Ox 98 07/22/23 08:25 FiO2 Intake & Output 07/21/23 07/22/23 07/22/23 18:59 06:59 18:59 Intake Total 300 Output Total 0 Balance 300 Weight 82.554 kg 82.554 kg Intake: IV 300 Output: Estimated Blood Loss 0 Other: # Voids 3 - Labs CBC & Chem 7: 07/21/23 15:30 07/21/23 16:15 Labs: Abnormal Lab Results - Last 24 Hours (Table) 07/21/23 07/21/23 07/21/23 Range/Units 14:58 15:30 16:15 WBC 17.0 H (3.8-10.6) k/uL Neutrophils # 14.4 H (1.3-7.7) k/uL Lymphocytes # 0.8 L (1.0-4.8) k/uL Monocytes # 1.5 H (0-1.0) k/uL Sodium 135 L (137-145) mmol/L Carbon Dioxide 21 L (22-30) mmol/L Glucose 183 H (74-99) mg/dL POC Glucose (mg/dL) (70-110) mg/dL Urine Appearance Cloudy H (Clear) Urine Protein 2+ H (Negative) Urine Glucose (UA) Trace H (Negative) Urine Blood Moderate H (Negative) Ur Leukocyte Esterase Large H (Negative) Urine RBC 26 H (0-5) /hpf Urine WBC >182 H (0-5) /hpf Urine WBC Clumps Few H (None) /hpf Urine Bacteria Rare H (None) /hpf Urine Mucus Rare H (None) /hpf 07/22/23 Range/Units 05:20 WBC (3.8-10.6) k/uL Neutrophils # (1.3-7.7) k/uL Lymphocytes # (1.0-4.8) k/uL Monocytes # (0-1.0) k/uL Sodium (137-145) mmol/L Carbon Dioxide (22-30) mmol/L Glucose (74-99) mg/dL POC Glucose (mg/dL) 219 H (70-110) mg/dL Urine Appearance (Clear) Urine Protein (Negative) Urine Glucose (UA) (Negative) Urine Blood (Negative) Ur Leukocyte Esterase (Negative) Urine RBC (0-5) /hpf Urine WBC (0-5) /hpf Urine WBC Clumps (None) /hpf Urine Bacteria (None) /hpf Urine Mucus (None) /hpf
[2023-07-22 16:50] LABS: Glucose,Whole Blood 174 mg/dL (70-110)
[2023-07-22 16:50] LABS: Glucose,Whole Blood 166 mg/dL (70-110)
[2023-07-22 20:49] LABS: Glucose,Whole Blood 185 mg/dL (70-110)
[2023-07-22] MEDS: SERTRALINE 100 MG TAB PO SCH (20:56)
[2023-07-23 05:58] LABS: Glucose,Whole Blood 158 mg/dL (70-110)
[2023-07-23] MEDS: OXYBUTYNIN XL 5 MG TAB.ER.24 PO SCH (08:34)
[2023-07-23 08:40] LABS: Basophils # (A) 0.04 X 10*3/uL (0.00-0.10); Basophils % (A) 0.3 %; Eosinophils # (A) 0.19 X 10*3/uL (0.04-0.35); Eosinophils % (A) 1.5 %; HCT 34.2 % (37.2-46.3); HGB 10.5 g/dL (12.0-15.0); Lymphocytes # (A) 1.12 X 10*3/uL (0.90-5.00); MCH 26.9 pg (27.0-32.0); MCHC 30.7 g/dL (32.0-37.0); MCV 87.5 FL (80.0-97.0); Mean Platelet Volume 11.1 FL (9.5-12.2); Monocytes # (A) 1.13 X 10*3/uL (0.20-1.00); Monocytes % (A) 9.1 %; NRBC Per 100 WBC 0 X 10*3/uL (0.00-0.01); Neutrophils # (A) 9.83 X 10*3/uL (1.80-7.70); Neutrophils % (A) 79.5 %; Platelet Count 163 X 10*3/uL (140-440); RBC 3.91 X 10*6/uL (4.10-5.20); WBC 12.39 X 10*3/uL (4.50-10.00)
[2023-07-23 10:27] LABS: BUN/Creat Ratio 14.57 Ratio (12.00-20.00); Blood Urea Nitrogen 10.2 mg/dL (9.0-27.0); Calcium 8.2 mg/dL (8.7-10.3); Carbon Dioxide 21.1 mmol/L (21.6-31.8); Chloride 112 mmol/L (96-109); Glucose 157 mg/dL (70-110); Magnesium 1.8 mg/dL (1.5-2.4); Potassium 3.8 mmol/L (3.5-5.5); Sodium 144 mmol/L (135-145)
[2023-07-23 11:59] LABS: Glucose,Whole Blood 149 mg/dL (70-110)
--- NOTE | 2023-07-23 15:14 | P.PN ---
Subjective Progress Note Date: 07/23/23 Hospital course: Patient is a pleasant 68-year-old female with a past medical history of type II ctk-uizpqhj-cxcvezvpi diabetes mellitus, hypothyroidism, hyperlipidemia, GERD, and recurrent kidney stones. She presented to the hospital on 07/21/2023 with a chief complaint of left flank pain. Patient was under care of her PCP and received IM injection of Rocephin followed by p.o. ciprofloxacin, but had worsening symptoms and brown discoloration of urine so she came to the emergency department for evaluation. Upon arrival to the hospital, patient underwent evaluation in the emergency department. Vital signs upon arrival show blood pressure 136/58, heart rate 77, respiratory rate 20, temp 101.6 F, and SpO2 of 98% on room air. Labs were completed and reviewed. CBC showing leukocytosis with WBC count of 17.0. BMP showing mild hypocarbia with bicarb of 21 otherwise normal findings. Lactic acid 1.2. Liver profile unremarkable. Lipase is normal findings at 35. Urinalysis positive for protein, glucose, blood, leukocyte esterase 26 RBCs, and greater than [address] abdomen and pelvis with without contrast was completed showing a 5 mm stone at the left UVJ with mild obstructive uropathy and a 3 mm stone floating in the left renal pelvis, ad ditional bilateral nonobstructing calculi measuring up to 1.4 cm on the right, and left-sided colonic diverticulosis without acute diverticulitis. Patient was admitted under our services with consultation to urology. Physical exam: Patient was seen and fully evaluated at bedside this morning. She was sitting up in the chair at bedside this morning. She reports improvement of flank/groin pain. She denies any further episodes of nausea or vomiting, she does report having continued dysuria and hematuria. She denies frequency or urgency at this time. Vital signs reviewed and stable. General: Nontoxic, no distress and appears stated age. Derm: Skin warm and dry, normal coloration for ethnicity. Head: Atraumatic, normocephalic and symmetric. Eyes: EOMs intact, no lid lag, and anicteric sclera Mouth: no lip lesions, mucus membranes moist Cardiovascular: regular rate and rhythm with normal S1S2, no murmur, positive posterior tibial pulses bilaterally, and cap refill < 2 seconds. Lungs: Respirations even, regular, and unlabored on room air. Lungs CTA bilaterally, no rhonchi, no rales, no wheezing, and no accessory muscle usage. Abdominal: soft, nontender to palpation, no guarding, no appreciable organomegaly. No CVA tenderness this morning. Ext: ROM intact. No gross muscle atrophy, no edema, no contractures Neuro: Speech clear, face symmetrical and CN II-XII grossly intact with no noted focal neuro deficits Psych: Alert and oriented to person, place, time, and situation. Appropriate and pleasant affect. Assessment and Plan of Care: Pyelonephritis with obstructive uropathy secondary to ureteral stone, failed outpatient antibiotic course Sepsis upon arrival, secondary to above -Urology following, took patient for cystoscopy and bilateral stent insertion on 07/21/2023 -Continue IV antibiotics with Rocephin 2 g IVPB every 24 hours. -Follow-up on urine culture results -Follow-up blood culture results -Continue with gentle IV fluid hydration. -Monitor I's and O's. Type II sjj-tvwlqif-kainrdlrh diabetes mellitus -Hold metformin and patient placed on glycemic protocol with NovoLog sliding scale. Data and imaging reviewed: Labs were completed and reviewed. CBC showing improvement of leukocytosis with WBC count of 12.39 and stable normocytic anemia with hemoglobin of 10.5. BMP showing hyperchloremia with chloride of 112 and hypocarbia with bicarb of 21.1 otherwise normal findings. Blood glucose was 157. Hemoglobin A1c slightly elevated at 6.5%. Magnesium 1.8. Vital signs reviewed. Blood pressure 130/76, heart rate 75, respiratory rate 16, temp 98.5 F, and SpO2 of 100% on room air. Temperature high over the past 24 hours is 100.1F. CODE STATUS: Full code DVT prophylaxis: Lovenox Anticipated discharge date: Clinical course to determine Anticipated discharge place: Clinical course to determine Patient was seen independently by Nurse Pracitioner. This document was prepared using Alegría dictation software. Please allow for errors in fire official, while rare they do occur. Kyle Olivas NP rendered care for this patient independently, reviewed the findings and plan as documented in the note above. I did not physically speak with or examine the patient on this date. Continued fevers with negative urien culture, recommended repeat UA and cultures if continues to have fevers by tomorrow will need ABX broadened. Objective - Vital Signs Vital signs: Vital Signs Temp 98.5 F 07/23/23 07:39 Pulse 75 07/23/23 07:39 Resp 16 07/23/23 07:39 BP 130/76 07/23/23 07:39 Pulse Ox 100 07/23/23 07:39 FiO2 Intake & Output 07/22/23 07/23/23 07/23/23 18:59 06:59 18:59 Intake Total 378 Balance 378 Intake: Oral 378 Other: Voiding Method Toilet Toilet # Voids 3 3 - Labs CBC & Chem 7: 07/23/23 05:52 07/23/23 05:52 Labs: Abnormal Lab Results - Last 24 Hours (Table) 07/22/23 07/22/23 07/22/23 Range/Units 12:25 16:48 20:48 WBC (4.50-10.00) X 10*3/uL RBC (4.10-5.20) X 10*6/uL Hgb (12.0-15.0) g/dL Hct (37.2-46.3) % MCH (27.0-32.0) pg MCHC (32.0-37.0) g/dL RDW (11.5-14.5) % Immature Gran # (0.00-0.04) X 10*3/uL Neutrophils # (1.80-7.70) X 10*3/uL Monocytes # (0.20-1.00) X 10*3/uL POC Glucose (mg/dL) 174 H 166 H 185 H (70-110) mg/dL Hemoglobin A1c (<=6.0) % 07/23/23 07/23/23 07/23/23 Range/Units 05:52 05:52 05:57 WBC 12.39 H (4.50-10.00) X 10*3/uL RBC 3.91 L (4.10-5.20) X 10*6/uL Hgb 10.5 L (12.0-15.0) g/dL Hct 34.2 L (37.2-46.3) % MCH 26.9 L (27.0-32.0) pg MCHC 30.7 L (32.0-37.0) g/dL RDW 15.0 H (11.5-14.5) % Immature Gran # 0.08 H (0.00-0.04) X 10*3/uL Neutrophils # 9.83 H (1.80-7.70) X 10*3/uL Monocytes # 1.13 H (0.20-1.00) X 10*3/uL POC Glucose (mg/dL) 158 H (70-110) mg/dL Hemoglobin A1c 6.5 H (<=6.0) % Microbiology - Last 24 Hours (Table) 07/21/23 12:34 Blood Culture - Preliminary Blood 07/21/23 12:24 Blood Culture - Preliminary Blood 07/21/23 14:58 Urine Culture - Final Urine,Voided
--- NOTE | 2023-07-23 16:27 | P.PN ---
Subjective Progress Note Date: 07/23/23 No acute overnight event, she remains afebrile Objective - Vital Signs Vital signs: Vital Signs Temp 98.7 F 07/23/23 14:00 Pulse 73 07/23/23 14:00 Resp 16 07/23/23 14:00 BP 154/75 07/23/23 14:00 Pulse Ox 97 07/23/23 14:00 FiO2 Intake & Output 07/22/23 07/23/23 07/23/23 18:59 06:59 18:59 Intake Total 378 236 Balance 378 236 Intake: Oral 378 236 Other: Voiding Method Toilet Toilet Toilet # Voids 3 3 3 # Bowel Movements 1 - Gastrointestinal General gastrointestinal: Present: soft. Absent: distended, tenderness - Psychiatric Psychiatric: Present: A&O x's 3 - Labs CBC & Chem 7: 07/23/23 05:52 07/23/23 05:52 Labs: Abnormal Lab Results - Last 24 Hours (Table) 07/22/23 07/22/23 07/22/23 Range/Units 12:25 16:48 20:48 WBC (4.50-10.00) X 10*3/uL RBC (4.10-5.20) X 10*6/uL Hgb (12.0-15.0) g/dL Hct (37.2-46.3) % MCH (27.0-32.0) pg MCHC (32.0-37.0) g/dL RDW (11.5-14.5) % Immature Gran # (0.00-0.04) X 10*3/uL Neutrophils # (1.80-7.70) X 10*3/uL Monocytes # (0.20-1.00) X 10*3/uL Chloride (96-109) mmol/L Carbon Dioxide (21.6-31.8) mmol/L Glucose (70-110) mg/dL POC Glucose (mg/dL) 174 H 166 H 185 H (70-110) mg/dL Hemoglobin A1c (<=6.0) % Calcium (8.7-10.3) mg/dL 07/23/23 07/23/23 07/23/23 Range/Units 05:52 05:52 05:52 WBC 12.39 H (4.50-10.00) X 10*3/uL RBC 3.91 L (4.10-5.20) X 10*6/uL Hgb 10.5 L (12.0-15.0) g/dL Hct 34.2 L (37.2-46.3) % MCH 26.9 L (27.0-32.0) pg MCHC 30.7 L (32.0-37.0) g/dL RDW 15.0 H (11.5-14.5) % Immature Gran # 0.08 H (0.00-0.04) X 10*3/uL Neutrophils # 9.83 H (1.80-7.70) X 10*3/uL Monocytes # 1.13 H (0.20-1.00) X 10*3/uL Chloride 112 H (96-109) mmol/L Carbon Dioxide 21.1 L (21.6-31.8) mmol/L Glucose 157 H (70-110) mg/dL POC Glucose (mg/dL) (70-110) mg/dL Hemoglobin A1c 6.5 H (<=6.0) % Calcium 8.2 L (8.7-10.3) mg/dL 07/23/23 07/23/23 Range/Units 05:57 11:57 WBC (4.50-10.00) X 10*3/uL RBC (4.10-5.20) X 10*6/uL Hgb (12.0-15.0) g/dL Hct (37.2-46.3) % MCH (27.0-32.0) pg MCHC (32.0-37.0) g/dL RDW (11.5-14.5) % Immature Gran # (0.00-0.04) X 10*3/uL Neutrophils # (1.80-7.70) X 10*3/uL Monocytes # (0.20-1.00) X 10*3/uL Chloride (96-109) mmol/L Carbon Dioxide (21.6-31.8) mmol/L Glucose (70-110) mg/dL POC Glucose (mg/dL) 158 H 149 H (70-110) mg/dL Hemoglobin A1c (<=6.0) % Calcium (8.7-10.3) mg/dL Microbiology - Last 24 Hours (Table) 07/21/23 12:34 Blood Culture - Preliminary Blood 07/21/23 12:24 Blood Culture - Preliminary Blood 07/21/23 14:58 Urine Culture - Final Urine,Voided Assessment and Plan Assessment: 68-year-old female with a history of a 5 mm left-sided ureteral stone, and 1.4 cm right-sided renal stone, status post bilateral stent insertion. Doing well this morning it -Continue IV antibiotics until cultures are finalized. Once cultures finalize she is okay for discharge from urology standpoint -Continue Ditropan XL for bladder spasms -She is tentatively set up for bilateral ureteroscopy with holmium laser and st ent removal, possible stent exchange on the right on August 17
[2023-07-23 17:10] LABS: Glucose,Whole Blood 115 mg/dL (70-110)
[2023-07-23 20:43] LABS: Glucose,Whole Blood 186 mg/dL (70-110)
[2023-07-24 06:28] LABS: Glucose,Whole Blood 160 mg/dL (70-110)
[2023-07-24 11:55] LABS: Appearance,Urine Clear (Clear); Bilirubin,Urine Negative (Negative); Blood,Urine Large (Negative); Color,Urine Light Yellow; Glucose,Urine (UA) Negative (Negative); Ketones,Urine 1+ (Negative); Leukocyte Esterase,Urine Moderate (Negative); Mucus,Urine Rare /hpf; Nitrite,Urine Negative (Negative); PH, Urine 6.5 (5.0-8.0); Protein,Urine 1+ (Negative); RBC,Urine >182 /hpf (0-5); Specific Gravity,Urine 1.015 (1.001-1.035); Squamous Epithelial Cell,Urine <1 /hpf (0-4); Urobilinogen,Urine <2.0 mg/dL (<2.0); WBC,Urine 19 /hpf (0-5)
[2023-07-24 12:11] LABS: Glucose,Whole Blood 111 mg/dL (70-110)
--- NOTE | 2023-07-24 14:53 | P.PN ---
Subjective Progress Note Date: 07/24/23 Hospital course: Patient is a pleasant 68-year-old female with a past medical history of type II btk-cmtmwmn-lmsbjecvg diabetes mellitus, hypothyroidism, hyperlipidemia, GERD, and recurrent kidney stones. She presented to the hospital on 07/21/2023 with a chief complaint of left flank pain. Patient was under care of her PCP and received IM injection of Rocephin followed by p.o. ciprofloxacin, but had worsening symptoms and brown discoloration of urine so she came to the emergency department for evaluation. Upon arrival to the hospital, patient underwent evaluation in the emergency department. Vital signs upon arrival show blood pressure 136/58, heart rate 77, respiratory rate 20, temp 101.6 F, and SpO2 of 98% on room air. Labs were completed and reviewed. CBC showing leukocytosis with WBC count of 17.0. BMP showing mild hypocarbia with bicarb of 21 otherwise normal findings. Lactic acid 1.2. Liver profile unremarkable. Lipase is normal findings at 35. Urinalysis positive for protein, glucose, blood, leukocyte esterase 26 RBCs, and greater than [address] abdomen and pelvis with without contrast was completed showing a 5 mm stone at the left UVJ with mild obstructive uropathy and a 3 mm stone floating in the left renal pelvis, ad ditional bilateral nonobstructing calculi measuring up to 1.4 cm on the right, and left-sided colonic diverticulosis without acute diverticulitis. Patient was admitted under our services with consultation to urology. Patient underwent cystoscopy with bilateral stent insertion on 07/21/2023. He has been maintained on IV antibiotics with Rocephin 2 g IVPB every 24 hours. Urine culture showing no growth and blood culture showing no growth to date however patient spiking elevated temp overnight 101.1 F. Will repeat urinalysis with urine culture and continue current plan of care at this time, if patient has any further episodes of elevated temp will consult infectious disease and broaden antibiotic coverage at that time. Physical exam: Patient was seen and fully evaluated at bedside this morning. She was sitting up in the chair at bedside this morning, reports feeling well this morning but concerned over elevated temp yesterday evening. She denies having any worsening flank pain, nausea, vomiting, or any other complaints at this time. Vital signs reviewed and stable. General: Nontoxic, no distress and appears stated age. Derm: Skin warm and dry, normal coloration for ethnicity. Head: Atraumatic, normocephalic and symmetric. Eyes: EOMs intact, no lid lag, and anicteric sclera Mouth: no lip lesions, mucus membranes moist Cardiovascular: regular rate and rhythm with normal S1S2, no murmur, positive posterior tibial pulses bilaterally, and cap refill < 2 seconds. Lungs: Respirations even, regular, and unlabored on room air. Lungs CTA bilaterally, no rhonchi, no rales, no wheezing, and no accessory muscle usage. Abdominal: soft, nontender to palpation, no guarding, no appreciable organomegaly. No CVA tenderness this morning. Ext: ROM intact. No gross muscle atrophy, no edema, no contractures Neuro: Speech clear, face symmetrical and CN II-XII grossly intact with no noted focal neuro deficits Psych: Alert and oriented to person, place, time, and situation. Appropriate and pleasant affect. Assessment and Plan of Care: Pyelonephritis with obstructive uropathy secondary to ureteral stone, failed outpatient antibiotic course Sepsis upon arrival, secondary to above -Urology following, took patient for cystoscopy and bilateral stent insertion on 07/21/2023 -Continue IV antibiotics with Rocephin 2 g IVPB every 24 hours. -Initial urine culture showing no growth to date, repeat urinalysis and culture were obtained currently pending results. -Follow-up blood culture results -Continue with gentle IV fluid hydration. -Monitor I's and O's. Type II seh-zaddgwd-ljbsgkvyq diabetes mellitus -Hold metformin and patient placed on glycemic protocol with NovoLog sliding scale. Data and imaging reviewed: Labs reviewed. CBC showing improvement of leukocytosis with WBC count of 12.39 and stable normocytic anemia with hemoglobin of 10.5. BMP showing hyperchloremia with chloride of 112 and hypocarbia with bicarb of 21.1 otherwise normal findings. Blood glucose was 157. Hemoglobin A1c slightly elevated at 6.5%. Magnesium 1.8. Vital signs reviewed. Blood pressure 145/73, heart rate 65, respiratory rate 15, temp 98.7 F, and SpO2 of 97% on room air. Temperature high over the past 24 hours is 101.1F. Urine culture showing no growth and blood culture showing no growth to date however patient spiking elevated temp overnight 101.1 F. Will repeat urinalysis with urine culture and continue current plan of care at this time, if patient has any further episodes of elevated temp will consult infectious disease and broaden antibiotic coverage at that time. CODE STATUS: Full code DVT prophylaxis: Lovenox Anticipated discharge date: Clinical course to determine Anticipated discharge place: Clinical course to determine Patient was seen independently by Nurse Pracitioner. This document was prepared using [employer] dictation software. Please allow for errors in crude tester, while rare they do occur. Objective - Vital Signs Vital signs: Vital Signs Temp 98.7 F 07/24/23 07:00 Pulse 65 07/24/23 07:00 Resp 15 07/24/23 07:00 BP 145/73 07/24/23 07:00 Pulse Ox 97 07/24/23 07:00 FiO2 Intake & Output 07/23/23 07/24/23 07/24/23 18:59 06:59 18:59 Intake Total 476 Balance 476 Intake: Oral 476 Other: Voiding Method Toilet Toilet # Voids 3 2 # Bowel Movements 1 - Labs CBC & Chem 7: 07/23/23 05:52 07/23/23 05:52 Labs: Abnormal Lab Results - Last 24 Hours (Table) 07/23/23 07/23/23 07/23/23 Range/Units 05:52 11:57 17:09 Chloride 112 H (96-109) mmol/L Carbon Dioxide 21.1 L (21.6-31.8) mmol/L Glucose 157 H (70-110) mg/dL POC Glucose (mg/dL) 149 H 115 H (70-110) mg/dL Calcium 8.2 L (8.7-10.3) mg/dL 07/23/23 07/24/23 Range/Units 20:39 06:24 Chloride (96-109) mmol/L Carbon Dioxide (21.6-31.8) mmol/L Glucose (70-110) mg/dL POC Glucose (mg/dL) 186 H 160 H (70-110) mg/dL Calcium (8.7-10.3) mg/dL Microbiology - Last 24 Hours (Table) 07/21/23 12:34 Blood Culture - Preliminary Blood 07/21/23 12:24 Blood Culture - Preliminary Blood
--- NOTE | 2023-07-24 16:39 | P.PN ---
Subjective Progress Note Date: 07/24/23 Patient had a fever of 101 yesterday, she is afebrile this morning. Denies any flank pain. Objective - Vital Signs Vital signs: Vital Signs Temp 98.3 F 07/24/23 15:15 Pulse 64 07/24/23 15:15 Resp 16 07/24/23 15:15 BP 151/63 07/24/23 15:15 Pulse Ox 99 07/24/23 15:15 FiO2 Intake & Output 07/23/23 07/24/23 07/24/23 18:59 06:59 18:59 Intake Total 476 118 Balance 476 118 Intake: Oral 476 118 Other: Voiding Method Toilet Toilet # Voids 3 2 # Bowel Movements 1 - Constitutional General appearance: Present: no acute distress - Gastrointestinal General gastrointestinal: Present: soft. Absent: distended, tenderness - Labs CBC & Chem 7: 07/23/23 05:52 07/23/23 05:52 Labs: Abnormal Lab Results - Last 24 Hours (Table) 07/23/23 07/23/23 07/24/23 Range/Units 17:09 20:39 06:24 POC Glucose (mg/dL) 115 H 186 H 160 H (70-110) mg/dL Urine Protein (Negative) Urine Ketones (Negative) Urine Blood (Negative) Ur Leukocyte Esterase (Negative) Urine RBC (0-5) /hpf Urine WBC (0-5) /hpf Urine Mucus (None) /hpf 07/24/23 07/24/23 Range/Units 07:00 12:09 POC Glucose (mg/dL) 111 H (70-110) mg/dL Urine Protein 1+ H (Negative) Urine Ketones 1+ H (Negative) Urine Blood Large H (Negative) Ur Leukocyte Esterase Moderate H (Negative) Urine RBC >182 H (0-5) /hpf Urine WBC 19 H (0-5) /hpf Urine Mucus Rare H (None) /hpf Microbiology - Last 24 Hours (Table) 07/21/23 12:34 Blood Culture - Preliminary Blood 07/21/23 12:24 Blood Culture - Preliminary Blood Assessment and Plan Assessment: 68-year-old female with a history of a 5 mm left-sided ureteral stone, and 1.4 cm right-sided renal stone, status post bilateral stent insertion. Had a fever of 101 yesterday -Patient remains afebrile for 24 hours she is stable for discharge from urology standpoint -Continue Ditropan XL for bladder spasms -She is tentatively set up for bilateral ureteroscopy with holmium laser and stent removal, possible stent exchange on the right on August 17
[2023-07-24 16:57] VITALS: RESP 16
[2023-07-24 17:29] LABS: Glucose,Whole Blood 117 mg/dL (70-110)
[2023-07-24 19:59] LABS: Glucose,Whole Blood 201 mg/dL (70-110)
[2023-07-25 05:37] LABS: Glucose,Whole Blood 125 mg/dL (70-110)
[2023-07-25 08:44] VITALS: BP 149/74; PULSE 60; TEMP 98.5
--- NOTE | 2023-07-25 12:28 | P.DS ---
Providers Date of admission: 07/22/23 08:55 Expected date of discharge: 07/25/23 Attending physician: Mikaela Ernst MD Consults: 07/21/23 19:44 Consult Physician Urgent Consulting Provider: Cruzito Carey Consult Reason/Comments: left nephrolithiasis, sepsis Do you want consulting provider notified?: Yes Primary care physician: Harish Ruth Hospital Course: Discharge Diagnosis: Pyelonephritis with obstructive uropathy secondary to ureteral stone, failed outpatient antibiotic course Sepsis upon arrival, secondary to above Type II pcn-ukprzab-tgttmuiab diabetes mellitus Hypothyroidism GERD Depression Hypertension Hospital Course: Patient is a pleasant 68-year-old female with a past medical history of type II vcp-[id number] diabetes mellitus, hypothyroidism, hyperlipidemia, GERD, and recurrent kidney stones. She presented to the hospital on 07/21/2023 with a chief complaint of left flank pain. Patient was under care of her PCP and received IM injection of Rocephin followed by p.o. ciprofloxacin, but had worsening symptoms and brown discoloration of urine so she came to the emergency department for evaluation. Vital signs upon arrival show blood pressure 136/58, heart rate 77, respiratory rate 20, temp 101.6 F, and SpO2 of 98% on room air. CBC showing leukocytosis with WBC count of 17.0. BMP showing mild hypocarbia with bicarb of 21 otherwise normal findings. Lactic acid 1.2. Liver profile unremarkable. Lipase is normal findings at 35. Urinalysis positive for protein, glucose, blood, leukocyte esterase 26 RBCs, and greater than [address] abdomen and pelvis with without contrast was completed showing a 5 mm stone at the left UVJ with mild obstructive uropathy and a 3 mm stone floating in the left renal pelvis, additional bilateral nonobstructing calculi measuring up to 1.4 cm on the right, and left-sided colonic diverticulosis without acute diverticulitis. Patient was admitted under our services with consultation to urology. Patient underwent cystoscopy with bilateral stent insertion on 07/21/2023. She did have some postop fever. Continued on IV ceftriaxone while inpatient. Patient being discharged home with oral cefdinir to complete a total course of 10 days of antibiotics. She will follow-up with urology outpatient for bilateral ureteroscopy with holmium laser and stent removal and possible stent exchange on the right on August 17. Urology also recommended oxybutynin 5 mg daily for bladder spasms. Patient mostly asymptomatic and afebrile at the time of discharge. Patient seen and examined at bedside. Vital signs reviewed and stable. General: Nontoxic, no distress, appears at stated age Derm: Warm, dry Head: Atraumatic, normocephalic, symmetric Eyes: EOMI, no lid lag, anicteric sclera Mouth: No lip lesion, mucus membranes moist Cardiovascular: S1S2 reg, no murmur Lungs: CTA bilateral, no rhonchi, no rales, no accessory muscle use Abdominal: Soft, nontender to palpation, no guarding, no appreciable organomegaly Ext: No gross muscle atrophy, no edema, no contractures Neuro: CN II-XI grossly intact, no focal neuro deficits Psych: Alert, oriented, appropriate affect A total of 33 minutes of time were spent preparing this complex discharge summary. Patient was discharged on 07/25/2023 at 1106. Patient Condition at Discharge: Stable Plan - Discharge Summary New Discharge Prescriptions: New Oxybutynin Xl [Ditropan XL] 5 mg PO DAILY #30 tab Cefdinir 300 mg PO Q12HR #12 cap Continue Sertraline HCl [Zoloft] 200 mg PO HS Omeprazole [PriLOSEC] 20 mg PO PC-LUNCH Levothyroxine Sodium [Synthroid] 137 mcg PO DAILY Meloxicam 7.5 mg PO DAILY glipiZIDE XL [Glucotrol XL] 5 mg PO DAILY amLODIPine [Norvasc] 5 mg PO DAILY Losartan [Cozaar] 75 mg PO DAILY metFORMIN HCL 1,000 mg PO BID Discharge Medication List Sertraline HCl [Zoloft] 200 mg PO HS 10/11/15 [History] Omeprazole [PriLOSEC] 20 mg PO PC-LUNCH 05/21/21 [History] Levothyroxine Sodium [Synthroid] 137 mcg PO DAILY 07/22/23 [History] Losartan [Cozaar] 75 mg PO DAILY 07/22/23 [History] Meloxicam 7.5 mg PO DAILY 07/22/23 [History] amLODIPine [Norvasc] 5 mg PO DAILY 07/22/23 [History] glipiZIDE XL [Glucotrol XL] 5 mg PO DAILY 07/22/23 [History] metFORMIN HCL 1,000 mg PO BID 07/22/23 [History] Cefdinir 300 mg PO Q12HR #12 cap 07/25/23 [Rx] Oxybutynin Xl [Ditropan XL] 5 mg PO DAILY #30 tab 07/25/23 [Rx] Follow up Appointment(s)/Referral(s): Cruzito Carey MD [STAFF PHYSICIAN] - 1 Week Harish Ruth DO [Primary Care Provider] - 1-2 days Patient Instructions/Handouts: Kidney Stones (DC) Activity/Diet/Wound Care/Special Instructions: Please see your PCP and urology. Discharge Disposition: HOME SELF-CARE
== END 2023-07-25 12:33 | disposition home or self-care (01) | DRG 854 ==
LOC: EC 14:42 → 6NMEDSUR 19:57 → UNDODISOB 20:21 → 6NMEDSUR 20:56 → OBSVTOIN 07-22 08:55
PROVIDERS: ADMIT Internal Medicine; ATTEND Internal Medicine
PROC: 0T788DZ Dilation of Bilateral Ureters with Intraluminal Device, Via Natural or Artificial Opening Endoscopic (ICD-10-PCS; principal; 2023-07-22)
PROC: 05HC33Z Insertion of Infusion Device into Left Basilic Vein, Percutaneous Approach (ICD-10-PCS; 2023-07-24 14:25)
DX: A41.9 Sepsis, unspecified organism (principal); K57.32 Diverticulitis of large intestine without perforation or abscess without bleeding; N11.1 Chronic obstructive pyelonephritis; N13.2 Hydronephrosis with renal and ureteral calculous obstruction; E03.9 Hypothyroidism, unspecified; E78.5 Hyperlipidemia, unspecified; F32.A Depression, unspecified; I10 Essential (primary) hypertension; J44.9 Chronic obstructive pulmonary disease, unspecified; E11.9 Type 2 diabetes mellitus without complications; K21.9 Gastro-esophageal reflux disease without esophagitis; N32.89 Other specified disorders of bladder; Z79.84 Long term (current) use of oral hypoglycemic drugs; Z87.442 Personal history of urinary calculi; Z88.2 Allergy status to sulfonamides; Z88.8 Allergy status to other drugs, medicaments and biological substances; Z87.891 Personal history of nicotine dependence
CPT/HCPCS: 36410; 36415; 74176; 76937; 80048; 80053; 81001; 83036; 83605; 83690; 83735; 85025; 87040; 87086; 96361; 96365; 96375; 99285

== ENCOUNTER → 2023-07-21 | Outpatient (CLI) | payer MEDICARE ==
--- NOTE | 2023-07-21 11:01 | XR ---
EXAMINATION TYPE: XR KUB DATE OF EXAM: 07/21/2023 10:06 AM CLINICAL INDICATION:Female, 68 years old with history of N20.0 KUB; [facility] COMPARISON: 05/09/2022 TECHNIQUE: One radiographic view of the abdomen was obtained. FINDINGS: The bowel gas pattern is nonspecific without dilated loops of small or large bowel. There i s no evidence for organomegaly or pneumoperitoneum. The osseous structures are intact. Bilateral re nal calculi measuring up to 9 mm on the right and 18 x 9 mm on the left. Fecal material and gas are d emonstrated throughout the colon and rectum. Right upper quadrant course significance. IMPRESSION: 1. Bilateral renal calculi. 2. Nonspecific bowel gas pattern without radiographic evidence for acute process.
== END | disposition home or self-care (01) ==
LOC: RADXRMAIN 09:53
PROVIDERS: ATTEND Internal Medicine
DX: N20.0 Calculus of kidney (principal)
CPT/HCPCS: 74018

== ENCOUNTER → 2023-08-10 | Outpatient (CLI) | payer MEDICARE ==
[2023-08-10 15:52] LABS: BUN/Creat Ratio 24.83 Ratio (12.00-20.00); Blood Urea Nitrogen 29.8 mg/dL (9.0-27.0); Calcium 10.1 mg/dL (8.7-10.3); Chloride 106 mmol/L (96-109); Glucose 126 mg/dL (70-110); Sodium 141 mmol/L (135-145)
[2023-08-10 15:59] LABS: Basophils # (A) 0.04 X 10*3/uL (0.00-0.10); Basophils % (A) 0.4 %; Eosinophils # (A) 0.48 X 10*3/uL (0.04-0.35); Eosinophils % (A) 5.3 %; HGB 10.6 g/dL (12.0-15.0); Lymphocytes # (A) 2.33 X 10*3/uL (0.90-5.00); Lymphocytes % (A) 25.5 %; MCH 26.8 pg (27.0-32.0); MCHC 30.3 g/dL (32.0-37.0); MCV 88.4 FL (80.0-97.0); Monocytes # (A) 0.54 X 10*3/uL (0.20-1.00); Monocytes % (A) 5.9 %; NRBC Per 100 WBC 0 X 10*3/uL (0.00-0.01); Neutrophils # (A) 5.71 X 10*3/uL (1.80-7.70); Neutrophils % (A) 62.6 %; Platelet Count 324 X 10*3/uL (140-440); RBC 3.96 X 10*6/uL (4.10-5.20); RDW 14.8 % (11.5-14.5); WBC 9.13 X 10*3/uL (4.50-10.00)
[2023-08-10 16:27] LABS: Appearance,Urine Turbid (Clear); Bilirubin,Urine Small (Negative); Blood,Urine Large (Negative); Color,Urine Red (Yellow); Ketones,Urine Negative (Negative); Nitrite,Urine Negative (Negative); Specific Gravity,Urine 1.017 (1.001-1.030); Urobilinogen,Urine 0.2 E.U./DL
[2023-08-10 19:17] LABS: Bacteria,Urine 2+ (None Seen); UA Coarse Granular Casts 0-5 /LPF (None Seen)
== END | disposition home or self-care (01) ==
LOC: LABPAT 11:38
PROVIDERS: ATTEND Urology
DX: Z01.812 Encounter for preprocedural laboratory examination (principal); N20.0 Calculus of kidney; N20.1 Calculus of ureter
CPT/HCPCS: 36415; 80048; 81001; 85025; 87086

== ENCOUNTER 2023-08-11 07:38 | Inpatient (IN) | payer MEDICARE ==
[2023-08-11] MEDS: SODIUM CHLORIDE 0.9% 2,000 ML IV STA (08:27)
[2023-08-11] MEDS: KETOROLAC 15 MG/ML 1 ML VIAL IVP STA (08:28)
[2023-08-11] MEDS: ONDANSETRON 4 MG/2 ML VIAL IVP STA (08:28)
[2023-08-11] MEDS: ACETAMINOPHEN TAB 500 MG TAB PO STA (08:28)
[2023-08-11] MEDS: HYDROmorphone 0.5 MG/0.5 ML SYRINGE IVP STA (08:28)
--- NOTE | 2023-08-11 08:29 | ED ---
Abdominal Pain HPI - General Chief Complaint: Abdominal Pain Stated Complaint: fever, chills Time Seen by Provider: 08/11/23 07:48 Source: patient, RN notes reviewed Mode of arrival: ambulatory Limitations: no limitations - History of Present Illness Initial Comments: 68-year-old female presents emergency department chief complaint of left flank pain, fever chills. Patient states that she was recently hospitalized for UTI, kidney infection patient states she is not on any current antibiotics. She has bilateral ureteral stents in which she is scheduled to have her stone broken up and stents removed on the . Patient states she woke up with shaking chills noted fever and increasing pain in the left side. - Related Data Home Medications Medication Instructions Recorded Confirmed Sertraline HCl [Zoloft] 200 mg PO HS 10/11/15 08/11/23 Omeprazole [PriLOSEC] 20 mg PO PC-LUNCH 05/21/21 08/11/23 Levothyroxine Sodium [Synthroid] 137 mcg PO DAILY 07/22/23 08/11/23 Losartan [Cozaar] 75 mg PO DAILY 07/22/23 08/11/23 Meloxicam 7.5 mg PO DAILY 07/22/23 08/11/23 amLODIPine [Norvasc] 5 mg PO DAILY 07/22/23 08/11/23 glipiZIDE XL [Glucotrol XL] 5 mg PO DAILY 07/22/23 08/11/23 metFORMIN HCL 1,000 mg PO BID 07/22/23 08/11/23 traMADol HCL 50 mg PO Q4H PRN 08/11/23 08/11/23 Allergies Allergy/AdvReac Type Severity Reaction Status Date / Time sulfamethoxazole Allergy Severe Itching Verified 08/11/23 11:01 [From Bactrim] trimethoprim [From Bactrim] Allergy Severe Itching Verified 08/11/23 11:01 Review of Systems ROS Statement: Those systems with pertinent positive or pertinent negative responses have been documented in the HPI. ROS Other: All systems not noted in ROS Statement are negative. Past Medical History Past Medical History: Diabetes Mellitus, GERD/Reflux, Hyperlipidemia, Osteoarthritis (OA), Pneumonia, Thyroid Disorder Additional Past Medical History / Comment(s): kidney stones, diverticulitis, migraines, small hiatal hernia, History of Any Multi-Drug Resistant Organisms: None Reported Past Surgical History: Breast Surgery, Cholecystectomy, Hysterectomy, Joint Replacement, Orthopedic Surgery Additional Past Surgical History / Comment(s): left cataract, rt breast biopsy, ectopic , rt knee replacement, ORIF left foot kidney stones Past Anesthesia/Blood Transfusion Reactions: No Reported Reaction Past Psychological History: Depression Smoking Status: Former smoker Past Alcohol Use History: Rare Past Drug Use History: None Reported - Past Family History Father Family Medical History: Deep Vein Thrombosis (DVT) Mother Family Medical History: Cancer Additional Family Medical History / Comment(s): colon General Exam Limitations: no limitations General appearance: alert, in no apparent distress Head exam: Present: atraumatic, normocephalic, normal inspection Neck exam: Present: normal inspection. Absent: tenderness, meningismus, lymphadenopathy Respiratory exam: Present: normal lung sounds bilaterally. Absent: respiratory distress, wheezes, rales, rhonchi, stridor Cardiovascular Exam: Present: regular rate, normal rhythm, normal heart sounds. Absent: systolic murmur, diastolic murmur, rubs, gallop, clicks GI/Abdominal exam: Present: soft, tenderness, normal bowel sounds. Absent: distended, guarding, rebound, rigid Back exam: Present: CVA tenderness (L). Absent: CVA tenderness (R) Neurological exam: Present: alert, oriented X3 Course Vital Signs 08/11/23 08/11/23 07:42 09:20 Temperature 100.1 F H 99.7 F H Pulse Rate 63 51 L Respiratory 20 18 Rate Blood Pressure 167/81 126/65 O2 Sat by Pulse 100 97 Oximetry Medical Decision Making - Medical Decision Making Was pt. sent in by a medical professional or institution (, PA, FLY FRAME TENDER, urgent care, hospital, or residential...) When possible be specific @ -No Did you speak to anyone other than the patient for history (EMS, parent, family, police, friend...)? What history was obtained from this source @ -No Did you review nursing and triage notes (agree or disagree)? Why? @ -I reviewed and agree with nursing and triage notes Were old charts reviewed (outside hosp., previous admission, EMS record, old EKG, old radiological studies, urgent care reports/EKG's, residential records)? Report findings @ -Reviewed prior admission, urine culture, CBC and comp Differential Diagnosis (chest pain, altered mental status, abdominal pain women, abdominal pain men, vaginal bleeding, weakness, fever, dyspnea, syncope, headache, dizziness, GI bleed, back pain, seizure, CVA, palpatations, mental health, musculoskeletal)? @ -Differential Abdominal Pain Women: Appendicitis, Cholecystitis, diverticulosis, ischemic bowel, pancreatitis, hepatitis, UTI, gastroenteritis, AAA, incarcerated hernia, bowel obstruction, constipation, inflammatory bowel, hepatitis, peptic ulcer disease, splenic infarction, perforated viscus, vulvitis, ovarian torsion, PID, kidney stone, placenta abruption, this is not meant to be an all-inclusive list EKG interpreted by me (3pts min.). @ -None X-rays interpreted by me (1pt min.). @ -X-rays of bilateral ureteral stents, kidney stones CT interpreted by me (1pt min.). @ -None done U/S interpreted by me (1pt. min.). @ -None done What testing was considered but not performed or refused? (CT, X-rays, U/S, labs)? Why? @ -None What meds were considered but not given or refused? Why? @ -None Did you discuss the management of the patient with other professionals (professionals i.e. , PA, FLY FRAME TENDER, lab, RT, psych nurse, social media marketing manager, journalism instructor, teacher, forest fire officer, rn field case manager)? Give summary @ -I discussed the case with urologist recommends KUB, antibiotics and admissions discussed case with the admitting medicine sound physician Was smoking cessation discussed for >3mins.? @ -No Was critical care preformed (if so, how long)? @ -No Were there social determinants of health that impacted care today? How? (Homelessness, low income, unemployed, alcoholism, drug addiction, transportation, low edu. Level, literacy, decrease access to med. care, custodial, rehab)? @ -No Was there de-escalation of care discussed even if they declined (Discuss DNR or withdrawal of care, Hospice)? DNR status @ -No What co-morbidities impacted this encounter? (DM, HTN, Smoking, COPD, CAD, Cancer, CVA, ARF, Chemo, Hep., AIDS, mental health diagnosis, sleep apnea, morbid obesity)? @ -None Was patient admitted / discharged? Hospital course, mention meds given and route, prescriptions, significant lab abnormalities, going to OR and other pertinent info. @ -Admitted patient is found to have UTI probable pyelonephritis versus infected ureteral stent. Patient was given 2 g Rocephin, IV fluid bolus, maintenance fluids will be admitted for urology evaluation. Undiagnosed new problem with uncertain prognosis? @ -No Drug Therapy requiring intensive monitoring for toxicity (Heparin, Nitro, Insulin, Cardizem)? @ -No Were any procedures done? @ -No Diagnosis/symptom? @ -Pyelonephritis, infected ureteral stent Acute, or Chronic, or Acute on Chronic? @ -Acute Uncomplicated (without systemic symptoms) or Complicated (systemic symptoms)? @ -Complicated Side effects of treatment? @ -No Exacerbation, Progression, or Severe Exacerbation? @ -No Poses a threat to life or bodily function? How? (Chest pain, USA, CA, pneumonia, PE, COPD, DKA, ARF, appy, cholecystitis, CVA, Diverticulitis, Homicidal, Suicidal, threat to staff... and all critical care pts) @ -Yes sepsis, possible end organ failure - Lab Data Result diagrams: 08/11/23 08:18 08/11/23 08:18 Lab Results 08/11/23 08/11/23 08/11/23 Range/Units 08:18 08:18 08:18 WBC 12.3 H (3.8-10.6) k/uL RBC 4.02 (3.80-5.40) m/uL Hgb 10.9 L (11.4-16.0) gm/dL Hct 35.0 (34.0-46.0) % MCV 87.0 (80.0-100.0) fL MCH 27.1 (25.0-35.0) pg MCHC 31.1 (31.0-37.0) g/dL RDW 15.0 (11.5-15.5) % Plt Count 210 (150-450) k/uL MPV 7.2 Neutrophils % 89 % Lymphocytes % 4 % Monocytes % 4 % Eosinophils % 2 % Basophils % 0 % Neutrophils # 11.0 H (1.3-7.7) k/uL Lymphocytes # 0.5 L (1.0-4.8) k/uL Monocytes # 0.5 (0-1.0) k/uL Eosinophils # 0.3 (0-0.7) k/uL Basophils # 0.0 (0-0.2) k/uL Hypochromasia Slight Sodium 135 L (137-145) mmol/L Potassium 5.4 H (3.5-5.1) mmol/L Chloride 107 (98-107) mmol/L Carbon Dioxide 19 L (22-30) mmol/L Anion Gap 9 mmol/L BUN 40 H (7-17) mg/dL Creatinine 1.95 H (0.52-1.04) mg/dL Est GFR (CKD-EPI)AfAm 30 (>60 ml/min/1.73 sqM) Est GFR (CKD-EPI)NonAf 26 (>60 ml/min/1.73 sqM) Glucose 175 H (74-99) mg/dL Plasma Lactic Acid Anton (0.7-2.0) mmol/L Calcium 9.3 (8.4-10.2) mg/dL Total Bilirubin 1.0 (0.2-1.3) mg/dL AST 22 (14-36) U/L ALT 13 (4-34) U/L Alkaline Phosphatase 93 (38-126) U/L Total Protein 6.9 (6.3-8.2) g/dL Albumin 4.1 (3.5-5.0) g/dL Lipase 111 (23-300) U/L Urine Color Light Red Urine Appearance Turbid H (Clear) Urine pH 6.0 (5.0-8.0) Ur Specific [place] 1.017 (1.001-1.035) Urine Protein 2+ H (Negative) Urine Glucose (UA) Trace H (Negative) Urine Ketones Negative (Negative) Urine Blood Large H (Negative) Urine Nitrite Negative (Negative) Urine Bilirubin Negative (Negative) Urine Urobilinogen <2.0 (<2.0) mg/dL Ur Leukocyte Esterase Large H (Negative) Urine RBC >182 H (0-5) /hpf Urine WBC >182 H (0-5) /hpf Urine Bacteria Occasional H (None) /hpf Urine Mucus Few H (None) /hpf 08/11/23 Range/Units 08:18 WBC (3.8-10.6) k/uL RBC (3.80-5.40) m/uL Hgb (11.4-16.0) gm/dL Hct (34.0-46.0) % MCV (80.0-100.0) fL MCH (25.0-35.0) pg MCHC (31.0-37.0) g/dL RDW (11.5-15.5) % Plt Count (150-450) k/uL MPV Neutrophils % % Lymphocytes % % Monocytes % % Eosinophils % % Basophils % % Neutrophils # (1.3-7.7) k/uL Lymphocytes # (1.0-4.8) k/uL Monocytes # (0-1.0) k/uL Eosinophils # (0-0.7) k/uL Basophils # (0-0.2) k/uL Hypochromasia Sodium (137-145) mmol/L Potassium (3.5-5.1) mmol/L Chloride (98-107) mmol/L Carbon Dioxide (22-30) mmol/L Anion Gap mmol/L BUN (7-17) mg/dL Creatinine (0.52-1.04) mg/dL Est GFR (CKD-EPI)AfAm (>60 ml/min/1.73 sqM) Est GFR (CKD-EPI)NonAf (>60 ml/min/1.73 sqM) Glucose (74-99) mg/dL Plasma Lactic Acid Anton 2.2 H* (0.7-2.0) mmol/L Calcium (8.4-10.2) mg/dL Total Bilirubin (0.2-1.3) mg/dL AST (14-36) U/L ALT (4-34) U/L Alkaline Phosphatase (38-126) U/L Total Protein (6.3-8.2) g/dL Albumin (3.5-5.0) g/dL Lipase (23-300) U/L Urine Color Urine Appearance (Clear) Urine pH (5.0-8.0) Ur Specific [place] (1.001-1.035) Urine Protein (Negative) Urine Glucose (UA) (Negative) Urine Ketones (Negative) Urine Blood (Negative) Urine Nitrite (Negative) Urine Bilirubin (Negative) Urine Urobilinogen (<2.0) mg/dL Ur Leukocyte Esterase (Negative) Urine RBC (0-5) /hpf Urine WBC (0-5) /hpf Urine Bacteria (None) /hpf Urine Mucus (None) /hpf Disposition Clinical Impression: Sepsis, Pyelonephritis, Infection associated with ureteral stent Disposition: ADMITTED IP TO THIS HOSP Condition: Poor Referrals: Harish Ruth DO [Primary Care Provider] - 1-2 days Time of Disposition: 11:23
[2023-08-11 08:38] LABS: Basophils % (A) 0 %; Eosinophils # (A) 0.3 k/uL (0-0.7); Eosinophils % (A) 2 %; HGB 10.9 gm/dL (11.4-16.0); Hypochromasia Slight; Lymphocytes # (A) 0.5 k/uL (1.0-4.8); Lymphocytes % (A) 4 %; MCH 27.1 pg (25.0-35.0); MCHC 31.1 g/dL (31.0-37.0); Mean Platelet Volume 7.2; Monocytes # (A) 0.5 k/uL (0-1.0); Monocytes % (A) 4 %; Neutrophils % (A) 89 %; Platelet Count 210 k/uL (150-450); RBC 4.02 m/uL (3.80-5.40); WBC 12.3 k/uL (3.8-10.6)
[2023-08-11 09:19] LABS: ALT 13 U/L (4-34); AST 22 U/L (14-36); African American GFR (CKD) 30 (>60 ml/min/1.73 sqM); Albumin 4.1 g/dL (3.5-5.0); Alkaline Phosphatase 93 U/L (38-126); Anion Gap 9 mmol/L; Blood Urea Nitrogen 40 mg/dL (7-17); Calcium 9.3 mg/dL (8.4-10.2); Carbon Dioxide 19 mmol/L (22-30); Chloride 107 mmol/L (98-107); Glucose 175 mg/dL (74-99); Lipase 111 U/L (23-300); Non-African American GFR(CKD) 26 (>60 ml/min/1.73 sqM); Potassium 5.4 mmol/L (3.5-5.1); Sodium 135 mmol/L (137-145); Total Protein 6.9 g/dL (6.3-8.2)
--- NOTE | 2023-08-11 10:23 | XR ---
EXAMINATION TYPE: XR KUB DATE OF EXAM: 08/11/2023 10:06 AM CLINICAL INDICATION:Female, 68 years old with history of bilateral stents; [facility] COMPARISON: 07/21/2023. TECHNIQUE: One radiographic view of the abdomen was obtained. FINDINGS: The bowel gas pattern is nonspecific without dilated loops of small or large bowel. There i s no evidence for organomegaly or pneumoperitoneum. The osseous structures are intact. Bilateral re nal calculi measuring up to 15 mm on the right and 6 mm on the left. Fecal material and gas are demon strated throughout the colon and rectum. Bilateral ureteral stents are present with proximal portions in appropriate position. Distal pigtails also in appropriate position. IMPRESSION: 1. Bilateral renal calculi. 2. Bilateral ureteral stents in appropriate position. 3. Nonspecific bowel gas pattern without radiographic evidence for acute process.
[2023-08-11 10:51] LABS: Appearance,Urine Turbid (Clear); Bacteria,Urine Occasional /hpf; Bilirubin,Urine Negative (Negative); Blood,Urine Large (Negative); Color,Urine Light Red; Glucose,Urine (UA) Trace (Negative); Ketones,Urine Negative (Negative); Leukocyte Esterase,Urine Large (Negative); Mucus,Urine Few /hpf; Nitrite,Urine Negative (Negative); Protein,Urine 2+ (Negative); RBC,Urine >182 /hpf (0-5); Specific Gravity,Urine 1.017 (1.001-1.035); Urobilinogen,Urine <2.0 mg/dL (<2.0); WBC,Urine >182 /hpf (0-5)
[2023-08-11] MEDS ORDERED: ONDANSETRON 4 MG/2 ML VIAL IVP PRN (11:23)
[2023-08-11] MEDS ORDERED: NALOXONE 0.4 MG/ML 1 ML VIAL IV PRN (11:23)
[2023-08-11] MEDS ORDERED: KETOROLAC 15 MG/ML 1 ML VIAL IVP PRN (11:23)
[2023-08-11] MEDS: SODIUM CHLORIDE 0.9% 1,000 ML IV SCH (11:45)
--- NOTE | 2023-08-11 12:00 | P.HPIM ---
History of Present Illness H&P Date: 08/11/23 History of Presenting Illness: Patient is a pleasant 68-year-old female with a past medical history of hypertension, hypothyroidism, type II mxa-wtxhrfg-iyrmhdgio diabetes mellitus, GERD, depression, and recurrent kidney stones with recent hospitalization for pyelonephritis with obstructive uropathy underwent cystoscopy with bilateral stent insertion on 07/21/2023. She presented to the emergency department with a chief complaint of left flank pain, fever, and chills. Patient reports he has been at her baseline and was scheduled to undergo lithotripsy and removal of ureteral stents on 08/18/2023, but awoken this morning again with sudden onset severe left flank pain, fever, and chills. Patient reports in addition to these complaints she is also experiencing urinary frequency and suprapubic pressure/fullness. She denies having any headache, lightheadedness, dizziness, changes in vision or hearing, chest pain, palpitations, shortness of breath, cough or congestion, nausea, vomiting, or any other complaints. Upon arrival to our facility, patient underwent evaluation in the emergency department. Vital signs upon arrival show blood pressure 167/81, heart rate 63, respiratory rate 20, temp 100.1 F, and SpO2 of 100% on room air. KUB was completed showing bilateral renal calculi and bilateral ureteral stents reported in appropriate position with nonspecific bowel gas pattern without radiographic evidence for acute process. Labs completed and reviewed. CBC showing leukocytosis with WBC count of 12.3 and stable normocytic anemia with hemoglobin of 10.9. BMP showing sodium 135, potassium 5.4, bicarb of 19, BUN of 40, creatinine 1.95, and GFR of 26. Blood glucose 175. Initial lactate 2.2. Liver profile unremarkable. Lipase normal findings at 111. Urinalysis positive for blood, protein, glucose, leukocytes, greater than 182 RBCs, and greater than 182 WBCs. Patient was started on IV antibiotics and admitted under our services with consultation to urology. Review of systems: Pertinent positives and negatives as discussed in HPI, a complete review of systems was performed and all other systems are negative. Physical exam: Vital signs reviewed and stable. General: Nontoxic, no distress and appears stated age. Derm: Skin warm and dry, normal coloration for ethnicity. Head: Atraumatic, normocephalic and symmetric. Eyes: EOMs intact, no lid lag, and anicteric sclera Mouth: no lip lesions, mucus membranes moist Cardiovascular: regular rate and rhythm with normal S1S2, no murmur, positive posterior tibial pulses bilaterally, and cap refill < 2 seconds. Lungs: Respirations even, regular, and unlabored on room air. Lungs CTA bilaterally, no rhonchi, no rales, no wheezing, and no accessory muscle usage. Abdominal: soft, nontender to palpation, no guarding, no appreciable organomegaly. No CVA tenderness, patient did report mild tenderness to left lower flank. Ext: ROM intact. No gross muscle atrophy, no edema, no contractures Neuro: Speech clear, face symmetrical and CN II-XII grossly intact with no noted focal neuro deficits Psych: Alert and oriented to person, place, time, and situation. Appropriate and pleasant affect. Assessment and Plan of Care: Pyelonephritis Acute kidney injury Sepsis upon admission Hyperkalemia secondary to TEJAS Lactic acidosis -Urology consulted, appreciate recommendations. -Reviewed KUB showing bilateral renal calculi and bilateral ureteral stents reported in appropriate position with nonspecific bowel gas pattern without radiographic evidence for acute process. -Continue IV antibiotics with Rocephin 2 g IVPB every 24 hours. -Follow-up on urine culture results -Follow-up on blood culture results. -Order placed for bladder scan to monitor for postvoid residuals/urinary retention and strict I's and O's. -Order placed for renal ultrasound -Potassium 5.4, likely secondary to TEJAS patient provided with vigorous IV fluid hydration and we will repeat potassium levels this afternoon. -Initial lactate 2.2. Continue with aggressive IV fluid hydration and monitor for resolution. -Hold losartan secondary to TEJAS and hyperkalemia. -Symptomatic care and pain management. Tylenol 650 mg p.o. every 6 hours as needed for mild pain/fever. Dilaudid 0.5 mg every 3 hours as needed for moderate pain and Dilaudid 1 mg 6 hours as needed for severe pain. Type II zxk-[id number] diabetes mellitus -Hold metformin and patient placed on glycemic protocol with NovoLog sliding scale. Hypertension -Continue daily medication regimen with amlodipine 5 mg daily, losartan held secondary to TJEAS. Hypothyroidism -Continue daily medication regimen with levothyroxine 137 mcg daily. Depression -Continue daily medication regimen with Zoloft 200 mg nightly. Data and imaging reviewed: As stated above in HPI The patient is admitted with an anticipated greater than 2 midnight stay for evaluation of pyelonephritis CODE STATUS: Full code DVT prophylaxis: Heparin Anticipated discharge date: Pending clinical course Anticipated discharge place: Pending clinical course Patient was seen independently by Nurse Practitioner. This document was prepared using [employer] dictation software. Please allow for errors in architectural technologist while rare they do occur. Kyle Olivas NP rendered care for this patient independently, reviewed the findings and plan as documented in the note above. I did not physically speak with or examine the patient on this date. Past Medical History Past Medical History: Diabetes Mellitus, GERD/Reflux, Hyperlipidemia, Osteoarthritis (OA), Pneumonia, Thyroid Disorder Additional Past Medical History / Comment(s): kidney stones, diverticulitis, migraines, small hiatal hernia, History of Any Multi-Drug Resistant Organisms: None Reported Past Surgical History: Breast Surgery, Cholecystectomy, Hysterectomy, Joint Replacement, Orthopedic Surgery Additional Past Surgical History / Comment(s): left cataract, rt breast biopsy, ectopic , rt knee replacement, ORIF left foot kidney stones Past Anesthesia/Blood Transfusion Reactions: No Reported Reaction Past Psychological History: Depression Smoking Status: Former smoker Past Alcohol Use History: Rare Past Drug Use History: None Reported - Past Family History Father Family Medical History: Deep Vein Thrombosis (DVT) Mother Family Medical History: Cancer Additional Family Medical History / Comment(s): colon Medications and Allergies Home Medications Medication Instructions Recorded Confirmed Type Sertraline HCl [Zoloft] 200 mg PO HS 10/11/15 08/11/23 History Omeprazole [PriLOSEC] 20 mg PO PC-LUNCH 05/21/21 08/11/23 History Levothyroxine Sodium [Synthroid] 137 mcg PO DAILY 07/22/23 08/11/23 History Losartan [Cozaar] 75 mg PO DAILY 07/22/23 08/11/23 History Meloxicam 7.5 mg PO DAILY 07/22/23 08/11/23 History amLODIPine [Norvasc] 5 mg PO DAILY 07/22/23 08/11/23 History glipiZIDE XL [Glucotrol XL] 5 mg PO DAILY 07/22/23 08/11/23 History metFORMIN HCL 1,000 mg PO BID 07/22/23 08/11/23 History traMADol HCL 50 mg PO Q4H PRN 08/11/23 08/11/23 History Allergies Allergy/AdvReac Type Severity Reaction Status Date / Time sulfamethoxazole Allergy Severe Itching Verified 08/11/23 11:01 [From Bactrim] trimethoprim [From Bactrim] Allergy Severe Itching Verified 08/11/23 11:01 Physical Exam Vitals: Vital Signs Temp Pulse Resp BP Pulse Ox 08/11/23 11:26 98.9 F 49 L 14 109/56 97 08/11/23 09:20 99.7 F H 51 L 18 126/65 97 08/11/23 07:42 100.1 F H 63 20 167/81 100 Intake and Output 08/10/23 08/11/23 08/11/23 22:59 06:59 14:59 Other: Weight 78.471 kg Results CBC & Chem 7: 08/12/23 06:24 08/12/23 14:03 Labs: Abnormal Lab Results - Last 24 Hours (Table) 08/11/23 08/11/23 08/11/23 Range/Units 08:18 08:18 08:18 WBC 12.3 H (3.8-10.6) k/uL Hgb 10.9 L (11.4-16.0) gm/dL Neutrophils # 11.0 H (1.3-7.7) k/uL Lymphocytes # 0.5 L (1.0-4.8) k/uL Sodium 135 L (137-145) mmol/L Potassium 5.4 H (3.5-5.1) mmol/L Carbon Dioxide 19 L (22-30) mmol/L BUN 40 H (7-17) mg/dL Creatinine 1.95 H (0.52-1.04) mg/dL Glucose 175 H (74-99) mg/dL Plasma Lactic Acid Anton (0.7-2.0) mmol/L Urine Appearance Turbid H (Clear) Urine Protein 2+ H (Negative) Urine Glucose (UA) Trace H (Negative) Urine Blood Large H (Negative) Ur Leukocyte Esterase Large H (Negative) Urine RBC >182 H (0-5) /hpf Urine WBC >182 H (0-5) /hpf Urine Bacteria Occasional H (None) /hpf Urine Mucus Few H (None) /hpf 08/11/23 Range/Units 08:18 WBC (3.8-10.6) k/uL Hgb (11.4-16.0) gm/dL Neutrophils # (1.3-7.7) k/uL Lymphocytes # (1.0-4.8) k/uL Sodium (137-145) mmol/L Potassium (3.5-5.1) mmol/L Carbon Dioxide (22-30) mmol/L BUN (7-17) mg/dL Creatinine (0.52-1.04) mg/dL Glucose (74-99) mg/dL Plasma Lactic Acid Anton 2.2 H* (0.7-2.0) mmol/L Urine Appearance (Clear) Urine Protein (Negative) Urine Glucose (UA) (Negative) Urine Blood (Negative) Ur Leukocyte Esterase (Negative) Urine RBC (0-5) /hpf Urine WBC (0-5) /hpf Urine Bacteria (None) /hpf Urine Mucus (None) /hpf
[2023-08-11] MEDS ORDERED: traMADol 50 MG TAB PO PRN (12:01)
[2023-08-11] MEDS ORDERED: DEXTROSE 50% SYRINGE 50 ML IVP PRN ×2 (12:03)
[2023-08-11] MEDS ORDERED: HYDROmorphone 1 MG/ML 1 ML SYRINGE IM PRN (12:18)
[2023-08-11 12:19] LABS: Glucose,Whole Blood 126 mg/dL (70-110)
[2023-08-11] MEDS: INSULIN ASPART (NovoLOG) 100 UNIT/ML VIAL SQ SCH (12:21)
[2023-08-11] MEDS: HYDROmorphone 0.5 MG/0.5 ML SYRINGE IVP PRN (13:50)
[2023-08-11 16:36] LABS: Glucose,Whole Blood 119 mg/dL (70-110)
[2023-08-11] MEDS: HEPARIN SODIUM,PORCINE 5,000 UNIT/ML 1 ML VIAL SQ SCH (16:48)
[2023-08-11] MEDS: ACETAMINOPHEN TAB 325 MG TAB PO PRN (16:56)
[2023-08-11] MEDS ORDERED: HYDROmorphone 1 MG/ML 1 ML SYRINGE IVP PRN (18:09)
[2023-08-11 19:29] LABS: African American GFR (CKD) 35 (>60 ml/min/1.73 sqM); Anion Gap 5 mmol/L; Blood Urea Nitrogen 35 mg/dL (7-17); Calcium 7.9 mg/dL (8.4-10.2); Carbon Dioxide 17 mmol/L (22-30); Chloride 113 mmol/L (98-107); Glucose 115 mg/dL (74-99); Non-African American GFR(CKD) 30 (>60 ml/min/1.73 sqM); Sodium 135 mmol/L (137-145)
[2023-08-11] MEDS: SERTRALINE 100 MG TAB PO SCH (20:34)
[2023-08-11 20:49] LABS: Glucose,Whole Blood 169 mg/dL (70-110)
--- NOTE | 2023-08-11 22:16 | US ---
EXAMINATION TYPE: US renals and bladder DATE OF EXAM: 08/11/2023 COMPARISON: KUB 08/11/2023 CLINICAL INDICATION: Female, 68 years old with history of TEJAS, renal calculi, pyelonephritis; Patient has history of stones and stones seen on KUB. Patient states that she has ureteral stents in place EXAM MEASUREMENTS: Right Kidney: 12.5 x 7.5 x 5.8cm Left Kidney: 13.0 x 7.7 x 5.4 cm Slightly limited due to rib shadows. Right Kidney: There are multiple echogenic foci seen, largest measuring 0.4 x 0.7cm. There is a 1.6 x 1.6cm anechoic lesion seen mid right kidney. Hydronephrosis seen. Left Kidney: There are multiple echogenic foci seen, largest measuring 0.9 x 0.3cm. Mild hydronephros is seen Bladder: WNL as best seen. Ureteral stent seen. Bilateral Jets seen: Left only IMPRESSION: Bilateral nonobstructing renal calculi redemonstrated. Moderate right and mild left-sided hydronephrosis despite bilateral double-J ureter stents on plain film not as well documented by ultr asound technologist.
--- NOTE | 2023-08-12 00:02 | P.GSCN ---
History of Present Illness Consult date: 08/11/23 Reason for Consult: UTI, bilateral renal stones History of present illness: This is a 68-year-old female that presented to the hospital with left-sided flank pain associated with fevers and chills. She is status post bilateral stent insertion on July 20 for a septic stone, and she is currently scheduled for a bilateral ureteroscopy with holmium laser on August 17. She has been having intractable left flank pain associated with her fever, her temp was 100 on presentation. Urine analysis on presentation is concerning for UTI. She did have elevation of creatinine at 1.9 from baseline of 1. Underwent a KUB in the ER which showed bilateral stents in appropriate location Review of Systems - Constitutional Reports chills, Reports fatigue, Reports fever - Cardiovascular Denies chest pain, Denies shortness of breath - Gastrointestinal Reports abdominal pain, Reports nausea - Genitourinary Genitourinary: Denies dysuria, Denies hematuria - Integumentary Denies rash, Denies unusual bruising - Neurological Denies headaches, Denies syncope Past Medical History Past Medical History: Diabetes Mellitus, GERD/Reflux, Hyperlipidemia, Osteoarthritis (OA), Pneumonia, Thyroid Disorder Additional Past Medical History / Comment(s): kidney stones, diverticulitis, migraines, small hiatal hernia, History of Any Multi-Drug Resistant Organisms: None Reported Past Surgical History: Breast Surgery, Cholecystectomy, Hysterectomy, Joint Re placement, Orthopedic Surgery Additional Past Surgical History / Comment(s): left cataract, rt breast biopsy, ectopic , rt knee replacement, ORIF left foot kidney stones Past Anesthesia/Blood Transfusion Reactions: No Reported Reaction Past Psychological History: Depression Smoking Status: Former smoker Past Alcohol Use History: Rare Past Drug Use History: None Reported - Past Family History Father Family Medical History: Deep Vein Thrombosis (DVT) Mother Family Medical History: Cancer Additional Family Medical History / Comment(s): colon Medications and Allergies Home Medications Medication Instructions Recorded Confirmed Type Sertraline HCl [Zoloft] 200 mg PO HS 10/11/15 08/11/23 History Omeprazole [PriLOSEC] 20 mg PO PC-LUNCH 05/21/21 08/11/23 History Levothyroxine Sodium [Synthroid] 137 mcg PO DAILY 07/22/23 08/11/23 History Losartan [Cozaar] 75 mg PO DAILY 07/22/23 08/11/23 History Meloxicam 7.5 mg PO DAILY 07/22/23 08/11/23 History amLODIPine [Norvasc] 5 mg PO DAILY 07/22/23 08/11/23 History glipiZIDE XL [Glucotrol XL] 5 mg PO DAILY 07/22/23 08/11/23 History metFORMIN HCL 1,000 mg PO BID 07/22/23 08/11/23 History traMADol HCL 50 mg PO Q4H PRN 08/11/23 08/11/23 History Allergies Allergy/AdvReac Type Severity Reaction Status Date / Time sulfamethoxazole Allergy Severe Itching Verified 08/11/23 11:01 [From Bactrim] trimethoprim [From Bactrim] Allergy Severe Itching Verified 08/11/23 11:01 Surgical - Exam Vital Signs Temp Pulse Resp BP Pulse Ox 100.1 F H 63 20 167/81 100 08/11/23 07:42 08/11/23 07:42 08/11/23 07:42 08/11/23 07:42 08/11/23 07:42 - General no distress, moderate pain - Eyes normal ocular movement, no pale - ENT normal nares, normal mucosa - Respiratory normal expansion, normal respiratory effort - Abdomen Abdomen: soft, non tender - Psychiatric oriented to time, oriented to person, oriented to place Results - Labs 08/11/23 08:18 08/11/23 08:18 Abnormal Lab Results - Last 24 Hours (Table) 08/11/23 08/11/23 08/11/23 Range/Units 08:18 08:18 08:18 WBC 12.3 H (3.8-10.6) k/uL Hgb 10.9 L (11.4-16.0) gm/dL Neutrophils # 11.0 H (1.3-7.7) k/uL Lymphocytes # 0.5 L (1.0-4.8) k/uL Sodium 135 L (137-145) mmol/L Potassium 5.4 H (3.5-5.1) mmol/L Carbon Dioxide 19 L (22-30) mmol/L BUN 40 H (7-17) mg/dL Creatinine 1.95 H (0.52-1.04) mg/dL Glucose 175 H (74-99) mg/dL POC Glucose (mg/dL) (70-110) mg/dL Plasma Lactic Acid Anton (0.7-2.0) mmol/L Urine Appearance Turbid H (Clear) Urine Protein 2+ H (Negative) Urine Glucose (UA) Trace H (Negative) Urine Blood Large H (Negative) Ur Leukocyte Esterase Large H (Negative) Urine RBC >182 H (0-5) /hpf Urine WBC >182 H (0-5) /hpf Urine Bacteria Occasional H (None) /hpf Urine Mucus Few H (None) /hpf 08/11/23 08/11/23 Range/Units 08:18 12:18 WBC (3.8-10.6) k/uL Hgb (11.4-16.0) gm/dL Neutrophils # (1.3-7.7) k/uL Lymphocytes # (1.0-4.8) k/uL Sodium (137-145) mmol/L Potassium (3.5-5.1) mmol/L Carbon Dioxide (22-30) mmol/L BUN (7-17) mg/dL Creatinine (0.52-1.04) mg/dL Glucose (74-99) mg/dL POC Glucose (mg/dL) 126 H (70-110) mg/dL Plasma Lactic Acid Anton 2.2 H* (0.7-2.0) mmol/L Urine Appearance (Clear) Urine Protein (Negative) Urine Glucose (UA) (Negative) Urine Blood (Negative) Ur Leukocyte Esterase (Negative) Urine RBC (0-5) /hpf Urine WBC (0-5) /hpf Urine Bacteria (None) /hpf Urine Mucus (None) /hpf Diabetes panel 08/11/23 Range/Units 08:18 Sodium 135 L (137-145) mmol/L Potassium 5.4 H (3.5-5.1) mmol/L Chloride 107 (98-107) mmol/L Carbon Dioxide 19 L (22-30) mmol/L BUN 40 H (7-17) mg/dL Creatinine 1.95 H (0.52-1.04) mg/dL Glucose 175 H (74-99) mg/dL Calcium 9.3 (8.4-10.2) mg/dL AST 22 (14-36) U/L ALT 13 (4-34) U/L Alkaline Phosphatase 93 (38-126) U/L Total Protein 6.9 (6.3-8.2) g/dL Albumin 4.1 (3.5-5.0) g/dL Calcium panel 08/11/23 Range/Units 08:18 Calcium 9.3 (8.4-10.2) mg/dL Albumin 4.1 (3.5-5.0) g/dL Pituitary panel 08/11/23 Range/Units 08:18 Sodium 135 L (137-145) mmol/L Potassium 5.4 H (3.5-5.1) mmol/L Chloride 107 (98-107) mmol/L Carbon Dioxide 19 L (22-30) mmol/L BUN 40 H (7-17) mg/dL Creatinine 1.95 H (0.52-1.04) mg/dL Glucose 175 H (74-99) mg/dL Calcium 9.3 (8.4-10.2) mg/dL Adrenal panel 08/11/23 Range/Units 08:18 Sodium 135 L (137-145) mmol/L Potassium 5.4 H (3.5-5.1) mmol/L Chloride 107 (98-107) mmol/L Carbon Dioxide 19 L (22-30) mmol/L BUN 40 H (7-17) mg/dL Creatinine 1.95 H (0.52-1.04) mg/dL Glucose 175 H (74-99) mg/dL Calcium 9.3 (8.4-10.2) mg/dL Total Bilirubin 1.0 (0.2-1.3) mg/dL AST 22 (14-36) U/L ALT 13 (4-34) U/L Alkaline Phosphatase 93 (38-126) U/L Total Protein 6.9 (6.3-8.2) g/dL Albumin 4.1 (3.5-5.0) g/dL - Imaging Abdominal x-ray: image reviewed (Bilateral renal stones, bilateral stents in appropriate location) Assessment and Plan Assessment: 68-year-old female with history of septic stone status post bilateral stent insertion on July 20 presented back to the hospital with left flank pain, UTI and acute kidney injury. Reviewed her KUB the stent is in appropriate location, her urinalysis is concerning for UTI. At this time I recommend continuing IV antibiotics given in the hospital until cultures finalized. For now if clinical status improves we will plan on proceeding with bilateral ureteroscopy on August 17
[2023-08-12] MEDS: PANTOPRAZOLE 40 MG TABLET PO STA (03:37)
[2023-08-12 06:27] LABS: Glucose,Whole Blood 166 mg/dL (70-110)
[2023-08-12] MEDS: LEVOTHYROXINE 137 MCG TAB PO SCH (06:30)
[2023-08-12 06:45] LABS: HCT 30.2 % (34.0-46.0); Hypochromasia Moderate; MCH 26.9 pg (25.0-35.0); MCHC 30.3 g/dL (31.0-37.0); MCV 88.7 fL (80.0-100.0); Platelet Count 178 k/uL (150-450); RDW 15.4 % (11.5-15.5); WBC 15.5 k/uL (3.8-10.6)
[2023-08-12 06:59] LABS: ALT 20 U/L (4-34); AST 34 U/L (14-36); African American GFR (CKD) 35 (>60 ml/min/1.73 sqM); Alkaline Phosphatase 77 U/L (38-126); Anion Gap 7 mmol/L; Blood Urea Nitrogen 35 mg/dL (7-17); Calcium 7.7 mg/dL (8.4-10.2); Carbon Dioxide 16 mmol/L (22-30); Chloride 112 mmol/L (98-107); Glucose 155 mg/dL (74-99); Magnesium 1.3 mg/dL (1.6-2.3); Non-African American GFR(CKD) 30 (>60 ml/min/1.73 sqM); Sodium 135 mmol/L (137-145); Total Protein 5.5 g/dL (6.3-8.2)
[2023-08-12 07:02] LABS: Potassium 5.9 mmol/L (3.5-5.1)
[2023-08-12 07:37] LABS: HGB 9.2 gm/dL (11.4-16.0)
[2023-08-12] MEDS: amLODIPine 5 MG TAB PO SCH (08:26)
[2023-08-12 11:39] LABS: Glucose,Whole Blood 179 mg/dL (70-110)
[2023-08-12 11:47] VITALS: BMI 28.8
--- NOTE | 2023-08-12 13:38 | P.PN ---
Subjective Progress Note Date: 08/12/23 Hospital Course: Patient is a pleasant 68-year-old female with a past medical history of hypertension, hypothyroidism, type II [id number] diabetes mellitus, GERD, depression, and recurrent kidney stones with recent hospitalization for pyelonephritis with obstructive uropathy underwent cystoscopy with bilateral stent insertion on 07/21/2023. She presented to the emergency department with a chief complaint of left flank pain, fever, and chills. Patient reports he has been at her baseline and was scheduled to undergo lithotripsy and removal of ureteral stents on 08/18/2023, but awoken this morning again with sudden onset severe left flank pain, fever, and chills. Patient reports in addition to these complaints she is also experiencing urinary frequency and suprapubic pressure/fullness. She denies having any headache, lightheadedness, dizziness, changes in vision or hearing, chest pain, palpitations, shortness of breath, cough or congestion, nausea, vomiting, or any other complaints. Upon arrival to our facility, patient underwent evaluation in the emergency department. Vital signs upon arrival show blood pressure 167/81, heart rate 63, respiratory rate 20, temp 100.1 F, and SpO2 of 100% on room air. KUB was completed showing bila teral renal calculi and bilateral ureteral stents reported in appropriate position with nonspecific bowel gas pattern without radiographic evidence for acute process. Labs completed and reviewed. CBC showing leukocytosis with WBC count of 12.3 and stable normocytic anemia with hemoglobin of 10.9. BMP showing sodium 135, potassium 5.4, bicarb of 19, BUN of 40, creatinine 1.95, and GFR of 26. Blood glucose 175. Initial lactate 2.2. Liver profile unremarkable. Lipase normal findings at 111. Urinalysis positive for blood, protein, glucose, leukocytes, greater than 182 RBCs, and greater than 182 WBCs. Patient was started on IV antibiotics and admitted under our services with consultation to urology. Blood cultures resulting preliminarily positive in 2 out of 2 sets for Klebsiella pneumoniae. Infectious disease consulted. Physical exam: Patient was seen and fully evaluated at bedside this morning. She reports passing 2 kidney stones this morning and states pain has improved. She reports only having a mild soreness remaining to left lower flank/lower back region and denies any other complaints at this time. Patient did have low-grade temp of 100.5 F this morning. She denies any episodes of nausea or vomiting or any other complaints at this time. Vital signs reviewed and stable. General: Nontoxic, no distress and appears stated age. Derm: Skin warm and dry, normal coloration for ethnicity. Head: Atraumatic, normocephalic and symmetric. Eyes: EOMs intact, no lid lag, and anicteric sclera Mouth: no lip lesions, mucus membranes moist Cardiovascular: regular rate and rhythm with normal S1S2, no murmur, positive posterior tibial pulses bilaterally, and cap refill < 2 seconds. Lungs: Respirations even, regular, and unlabored on room air. Lungs CTA bilaterally, no rhonchi, no rales, no wheezing, and no accessory muscle usage. Abdominal: soft, nontender to palpation, no guarding, no appreciable organomegaly. No CVA tenderness, patient did report mild soreness to left lower flank but no increased tenderness upon palpation. Ext: ROM intact. No gross muscle atrophy, no edema, no contractures Neuro: Speech clear, face symmetrical and CN II-XII grossly intact with no noted focal neuro deficits Psych: Alert and oriented to person, place, time, and situation. Appropriate and pleasant affect. Assessment and Plan of Care: Pyelonephritis Klebsiella bacteremia Acute kidney injury Sepsis upon admission Hyperkalemia secondary to TEJAS Lactic acidosis -Urology consulted, discussed renal ultrasound with Dr. Carey. -Reviewed KUB showing bilateral renal calculi and bilateral ureteral stents reported in appropriate position with nonspecific bowel gas pattern without radiographic evidence for acute process. -Renal ultrasound was completed and radiology report reviewed showing bilateral nonobstructing renal calculi redemonstrated with moderate right and mild left- sided hydronephrosis despite bilateral double-J ureteral stents. -Continue IV antibiotics with Rocephin 2 g IVPB every 24 hours. -Follow-up on urine culture results -Preliminary blood cultures showing positive in 2 of 2 sets for Klebsiella. Will follow-up on final blood culture sensitivity report. -Infectious disease consulted for bacteremia. -Continue bladder scan as needed to monitor for postvoid residuals/urinary retention and strict I's and O's. -Potassium 5.9 reported to be a hemolyzed specimen, order placed for stat redraw and will follow-up on results and place further orders if indicated based upon these findings. -Lactic acidosis resolved with initial lactate 2.2 and decreasing down to 1.6 after aggressive IV fluid hydration.. Continue with aggressive IV fluid hydration and monitor for resolution. -Hold losartan secondary to TEJAS and hyperkalemia. -Symptomatic care and pain management. Tylenol 650 mg p.o. every 6 hours as needed for mild pain/fever. Dilaudid 0.5 mg every 3 hours as needed for moderate pain and Dilaudid 1 mg 6 hours as needed for severe pain. Hypomagnesemia -Magnesium 1.3. Orders placed for magnesium sulfate 3 g IVPB x 1 dose and we will follow-up with repeat magnesium level with a.m. labs and continue to replace abnormal electrolyte values as indicated based upon these results. Type II [id number] diabetes mellitus -Hold metformin and continue glycemic protocol with NovoLog sliding scale. Hypertension -Continue daily medication regimen with amlodipine 5 mg daily, losartan held secondary to TEJAS. Hypothyroidism -Continue daily medication regimen with levothyroxine 137 mcg daily. Depression -Continue daily medication regimen with Zoloft 200 mg nightly. Data and imaging reviewed: Blood cultures in 2 of 2 sets preliminarily positive for Klebsiella pneumoniae Vital signs reviewed. Blood pressure 145/68, heart rate 58, respiratory rate 18, temp 100.5 F, and SpO2 of 99% on room air. Morning labs reviewed. CBC showing cytosis with WBC count of 15.5 and normocytic anemia with hemoglobin of 9.2. BMP showing sodium 135, chloride of 112, bicarb 16, and anion gap of 7 with renal function showing BUN of 35, creatinine 1.74, and GFR of 30. Potassium of 5.9 but was a hemolyzed specimen and repeat lab completed yesterday evening showing potassium of 5 so order placed for stat redraw. Magnesium low at 1.3. Renal ultrasound was completed showing bilateral nonobstructing renal calculi redemonstrated with moderate right and mild left-sided hydronephrosis despite bilateral double-J ureteral stents. CODE STATUS: Full code DVT prophylaxis: Heparin Anticipated discharge date: Pending clinical course Anticipated discharge place: Pending clinical course Patient was seen independently by Nurse Practitioner. This document was prepared using [employer] dictation software. Please allow for errors in semiconductor packages leak tester while rare they do occur. Kyle Olivas NP rendered care for this patient independently, reviewed the findings and plan as documented in the note above. I did not physically speak with or examine the patient on this date. Objective - Vital Signs Vital signs: Vital Signs Temp 100.5 F H 08/12/23 08:00 Pulse 58 L 08/12/23 08:00 Resp 18 08/12/23 08:00 BP 145/68 08/12/23 08:00 Pulse Ox 99 08/12/23 08:00 FiO2 Intake & Output 08/11/23 08/12/23 08/12/23 18:59 06:59 18:59 Intake Total 120 Balance 120 Weight 78.471 kg Intake: Oral 120 Other: Voiding Method Toilet Toilet Toilet - Labs CBC & Chem 7: 08/12/23 06:24 08/12/23 14:03 Labs: Abnormal Lab Results - Last 24 Hours (Table) 08/11/23 08/11/23 08/11/23 Range/Units 08:18 08:18 12:18 WBC (3.8-10.6) k/uL RBC (3.80-5.40) m/uL Hgb (11.4-16.0) gm/dL Hct (34.0-46.0) % MCHC (31.0-37.0) g/dL Sodium (137-145) mmol/L Potassium (3.5-5.1) mmol/L Chloride (98-107) mmol/L Carbon Dioxide (22-30) mmol/L BUN (7-17) mg/dL Creatinine (0.52-1.04) mg/dL Glucose (74-99) mg/dL POC Glucose (mg/dL) 126 H (70-110) mg/dL Hemoglobin A1c (<=6.0) % Plasma Lactic Acid Anton 2.2 H* (0.7-2.0) mmol/L Calcium (8.4-10.2) mg/dL Magnesium (1.6-2.3) mg/dL Total Protein (6.3-8.2) g/dL Albumin (3.5-5.0) g/dL Urine Appearance Turbid H (Clear) Urine Protein 2+ H (Negative) Urine Glucose (UA) Trace H (Negative) Urine Blood Large H (Negative) Ur Leukocyte Esterase Large H (Negative) Urine RBC >182 H (0-5) /hpf Urine WBC >182 H (0-5) /hpf Urine Bacteria Occasional H (None) /hpf Urine Mucus Few H (None) /hpf 08/11/23 08/11/23 08/11/23 Range/Units 16:35 18:54 18:54 WBC (3.8-10.6) k/uL RBC (3.80-5.40) m/uL Hgb (11.4-16.0) gm/dL Hct (34.0-46.0) % MCHC (31.0-37.0) g/dL Sodium 135 L (137-145) mmol/L Potassium (3.5-5.1) mmol/L Chloride 113 H (98-107) mmol/L Carbon Dioxide 17 L (22-30) mmol/L BUN 35 H (7-17) mg/dL Creatinine 1.74 H (0.52-1.04) mg/dL Glucose 115 H (74-99) mg/dL POC Glucose (mg/dL) 119 H (70-110) mg/dL Hemoglobin A1c 6.3 H (<=6.0) % Plasma Lactic Acid Anton (0.7-2.0) mmol/L Calcium 7.9 L (8.4-10.2) mg/dL Magnesium (1.6-2.3) mg/dL Total Protein (6.3-8.2) g/dL Albumin (3.5-5.0) g/dL Urine Appearance (Clear) Urine Protein (Negative) Urine Glucose (UA) (Negative) Urine Blood (Negative) Ur Leukocyte Esterase (Negative) Urine RBC (0-5) /hpf Urine WBC (0-5) /hpf Urine Bacteria (None) /hpf Urine Mucus (None) /hpf 08/11/23 08/12/23 08/12/23 Range/Units 20:46 06:24 06:24 WBC 15.5 H (3.8-10.6) k/uL RBC 3.40 L (3.80-5.40) m/uL Hgb 9.2 L D (11.4-16.0) gm/dL Hct 30.2 L (34.0-46.0) % MCHC 30.3 L (31.0-37.0) g/dL Sodium 135 L (137-145) mmol/L Potassium 5.9 H (3.5-5.1) mmol/L Chloride 112 H (98-107) mmol/L Carbon Dioxide 16 L (22-30) mmol/L BUN 35 H (7-17) mg/dL Creatinine 1.74 H (0.52-1.04) mg/dL Glucose 155 H (74-99) mg/dL POC Glucose (mg/dL) 169 H (70-110) mg/dL Hemoglobin A1c (<=6.0) % Plasma Lactic Acid Anton (0.7-2.0) mmol/L Calcium 7.7 L (8.4-10.2) mg/dL Magnesium 1.3 L (1.6-2.3) mg/dL Total Protein 5.5 L (6.3-8.2) g/dL Albumin 3.0 L (3.5-5.0) g/dL Urine Appearance (Clear) Urine Protein (Negative) Urine Glucose (UA) (Negative) Urine Blood (Negative) Ur Leukocyte Esterase (Negative) Urine RBC (0-5) /hpf Urine WBC (0-5) /hpf Urine Bacteria (None) /hpf Urine Mucus (None) /hpf 08/12/23 Range/Units 06:26 WBC (3.8-10.6) k/uL RBC (3.80-5.40) m/uL Hgb (11.4-16.0) gm/dL Hct (34.0-46.0) % MCHC (31.0-37.0) g/dL Sodium (137-145) mmol/L Potassium (3.5-5.1) mmol/L Chloride (98-107) mmol/L Carbon Dioxide (22-30) mmol/L BUN (7-17) mg/dL Creatinine (0.52-1.04) mg/dL Glucose (74-99) mg/dL POC Glucose (mg/dL) 166 H (70-110) mg/dL Hemoglobin A1c (<=6.0) % Plasma Lactic Acid Anton (0.7-2.0) mmol/L Calcium (8.4-10.2) mg/dL Magnesium (1.6-2.3) mg/dL Total Protein (6.3-8.2) g/dL Albumin (3.5-5.0) g/dL Urine Appearance (Clear) Urine Protein (Negative) Urine Glucose (UA) (Negative) Urine Blood (Negative) Ur Leukocyte Esterase (Negative) Urine RBC (0-5) /hpf Urine WBC (0-5) /hpf Urine Bacteria (None) /hpf Urine Mucus (None) /hpf Microbiology - Last 24 Hours (Table) 08/11/23 08:19 Blood Culture Gram Stain - Preliminary Blood Blood Culture - Preliminary Molecular ID 08/11/23 08:18 Blood Culture Gram Stain - Preliminary Blood
[2023-08-12] MEDS: MAGNESIUM SULFATE-D5W PMX 1 GM in DEXTROSE/WATER 1 100ML.BAG IVPB SCH (14:20)
[2023-08-12 15:10] LABS: African American GFR (CKD) 31 (>60 ml/min/1.73 sqM); Anion Gap 9 mmol/L; Blood Urea Nitrogen 35 mg/dL (7-17); Calcium 7.9 mg/dL (8.4-10.2); Carbon Dioxide 16 mmol/L (22-30); Chloride 110 mmol/L (98-107); Glucose 156 mg/dL (74-99); Non-African American GFR(CKD) 27 (>60 ml/min/1.73 sqM); Potassium 5.1 mmol/L (3.5-5.1); Sodium 135 mmol/L (137-145)
[2023-08-12 16:40] LABS: Glucose,Whole Blood 193 mg/dL (70-110)
[2023-08-12 20:10] LABS: Glucose,Whole Blood 141 mg/dL (70-110)
--- NOTE | 2023-08-12 22:33 | P.CONS ---
History of Present Illness - Reason for Consult Consult date: 08/12/23 - History of Present Illness Patient is a 68-year-old female with a past medical history significant for diabetes mellitus reflux hypertension osteoarthritis pneumonia recent history of admission to hospital for kidney stones presenting back to the hospital yesterday morning for evaluation of left flank pain fever and chills patient symptom has been getting worse for the last few days describes the pain to be mostly sharp moderate intensity without any radiation with associated rigors and chills with the symptoms the patient presented to hospital on arrival to the ER patient did have temperature 100.1 F and did have a temperature of 100.5 this morning patient was not tachycardic hypotensive or hypoxic did have white count of 12.5 which is up to 15.5 today creatinine is 1.89 urine has been positive blood cultures came back positive with Klebsiella probably get infectious disease consultation patient did have a renal ultrasound bilateral nonobstructing renal calculi moderate right and mild left hydronephrosis despite bilateral double-J catheter patient has been evaluated by urology for the same Past Medical History Past Medical History: Diabetes Mellitus, GERD/Reflux, Hyperlipidemia, Osteoarthritis (OA), Pneumonia, Thyroid Disorder Additional Past Medical History / Comment(s): kidney stones, diverticulitis, migraines, small hiatal hernia, History of Any Multi-Drug Resistant Organisms: None Reported Past Surgical History: Breast Surgery, Cholecystectomy, Hysterectomy, Joint R eplacement, Orthopedic Surgery Additional Past Surgical History / Comment(s): left cataract, rt breast biopsy, ectopic , rt knee replacement, ORIF left foot kidney stones Past Anesthesia/Blood Transfusion Reactions: No Reported Reaction Past Psychological History: Depression Smoking Status: Former smoker Past Alcohol Use History: Rare Past Drug Use History: None Reported - Past Family History Father Family Medical History: Deep Vein Thrombosis (DVT) Mother Family Medical History: Cancer Additional Family Medical History / Comment(s): colon Medications and Allergies Home Medications Medication Instructions Recorded Confirmed Type Sertraline HCl [Zoloft] 200 mg PO HS 10/11/15 08/11/23 History Omeprazole [PriLOSEC] 20 mg PO PC-LUNCH 05/21/21 08/11/23 History Levothyroxine Sodium [Synthroid] 137 mcg PO DAILY 07/22/23 08/11/23 History Losartan [Cozaar] 75 mg PO DAILY 07/22/23 08/11/23 History Meloxicam 7.5 mg PO DAILY 07/22/23 08/11/23 History amLODIPine [Norvasc] 5 mg PO DAILY 07/22/23 08/11/23 History glipiZIDE XL [Glucotrol XL] 5 mg PO DAILY 07/22/23 08/11/23 History metFORMIN HCL 1,000 mg PO BID 07/22/23 08/11/23 History traMADol HCL 50 mg PO Q4H PRN 08/11/23 08/11/23 History Allergies Allergy/AdvReac Type Severity Reaction Status Date / Time sulfamethoxazole Allergy Severe Itching Verified 08/11/23 11:01 [From Bactrim] trimethoprim [From Bactrim] Allergy Severe Itching Verified 08/11/23 11:01 Physical Exam Vitals: Vital Signs Temp Pulse Pulse Pulse Resp BP BP 08/12/23 08:00 100.5 F H 58 L 18 145/68 08/12/23 02:10 98.0 F 61 13 93/60 08/11/23 20:35 61 19 08/11/23 20:09 98.8 F 61 19 108/51 08/11/23 15:52 55 L 16 08/11/23 15:31 98.1 F 53 L 16 96/56 08/11/23 15:00 54 L 18 119/68 Pulse Ox 08/12/23 08:00 99 08/12/23 02:10 93 L 08/11/23 20:35 08/11/23 20:09 98 08/11/23 15:52 08/11/23 15:31 98 08/11/23 15:00 98 Intake and Output 08/11/23 08/12/23 08/12/23 22:59 06:59 14:59 Intake Total 120 Balance 120 Intake: Oral 120 Other: Voiding Method Toilet Toilet Weight 78.471 kg 78.471 kg Results CBC & Chem 7: 08/12/23 06:24 08/12/23 14:03 Labs: Abnormal Lab Results - Last 24 Hours (Table) 08/11/23 08/11/23 08/11/23 Range/Units 16:35 18:54 18:54 WBC (3.8-10.6) k/uL RBC (3.80-5.40) m/uL Hgb (11.4-16.0) gm/dL Hct (34.0-46.0) % MCHC (31.0-37.0) g/dL Sodium 135 L (137-145) mmol/L Potassium (3.5-5.1) mmol/L Chloride 113 H (98-107) mmol/L Carbon Dioxide 17 L (22-30) mmol/L BUN 35 H (7-17) mg/dL Creatinine 1.74 H (0.52-1.04) mg/dL Glucose 115 H (74-99) mg/dL POC Glucose (mg/dL) 119 H (70-110) mg/dL Hemoglobin A1c 6.3 H (<=6.0) % Calcium 7.9 L (8.4-10.2) mg/dL Magnesium (1.6-2.3) mg/dL Total Protein (6.3-8.2) g/dL Albumin (3.5-5.0) g/dL 08/11/23 08/12/23 08/12/23 Range/Units 20:46 06:24 06:24 WBC 15.5 H (3.8-10.6) k/uL RBC 3.40 L (3.80-5.40) m/uL Hgb 9.2 L D (11.4-16.0) gm/dL Hct 30.2 L (34.0-46.0) % MCHC 30.3 L (31.0-37.0) g/dL Sodium 135 L (137-145) mmol/L Potassium 5.9 H (3.5-5.1) mmol/L Chloride 112 H (98-107) mmol/L Carbon Dioxide 16 L (22-30) mmol/L BUN 35 H (7-17) mg/dL Creatinine 1.74 H (0.52-1.04) mg/dL Glucose 155 H (74-99) mg/dL POC Glucose (mg/dL) 169 H (70-110) mg/dL Hemoglobin A1c (<=6.0) % Calcium 7.7 L (8.4-10.2) mg/dL Magnesium 1.3 L (1.6-2.3) mg/dL Total Protein 5.5 L (6.3-8.2) g/dL Albumin 3.0 L (3.5-5.0) g/dL 08/12/23 08/12/23 Range/Units 06:26 11:26 WBC (3.8-10.6) k/uL RBC (3.80-5.40) m/uL Hgb (11.4-16.0) gm/dL Hct (34.0-46.0) % MCHC (31.0-37.0) g/dL Sodium (137-145) mmol/L Potassium (3.5-5.1) mmol/L Chloride (98-107) mmol/L Carbon Dioxide (22-30) mmol/L BUN (7-17) mg/dL Creatinine (0.52-1.04) mg/dL Glucose (74-99) mg/dL POC Glucose (mg/dL) 166 H 179 H (70-110) mg/dL Hemoglobin A1c (<=6.0) % Calcium (8.4-10.2) mg/dL Magnesium (1.6-2.3) mg/dL Total Protein (6.3-8.2) g/dL Albumin (3.5-5.0) g/dL Microbiology - Last 24 Hours (Table) 08/11/23 08:18 Blood Culture Gram Stain - Preliminary Blood Blood Culture - Preliminary Klebsiella pneumoniae 08/11/23 08:19 Blood Culture Gram Stain - Preliminary Blood Blood Culture - Preliminary Klebsiella pneumoniae Molecular ID Assessment and Plan Plan: 1patient with sepsis in this patient who did have fever elevated white count source is likely complicated UTI in this patient who did have a history of renal stone requiring bilateral double-J catheter placement now with a left flank pain likely pyelonephritis etiology of sepsis. 2patient with the Klebsiella bacteremia source is likely complicated UTI 3-Rocephin 2 g daily while waiting for the culture to finalize We will follow on clinical condition and cultures to further adjust medication if needed Thank you for this consultation we will follow the patient along with you Dictation was produced using [employer] dictation software. please excuse any grammatical, word or spelling errors. Time with Patient: Greater than 30
[2023-08-13 06:47] LABS: Glucose,Whole Blood 115 mg/dL (70-110)
[2023-08-13 06:51] LABS: HCT 27.7 % (34.0-46.0); HGB 8.5 gm/dL (11.4-16.0); Hypochromasia Slight; MCH 27.2 pg (25.0-35.0); MCHC 30.8 g/dL (31.0-37.0); MCV 88.5 fL (80.0-100.0); Mean Platelet Volume 8.2; Platelet Count 147 k/uL (150-450); RBC 3.13 m/uL (3.80-5.40); RDW 15.4 % (11.5-15.5); WBC 12.1 k/uL (3.8-10.6)
[2023-08-13 07:11] LABS: ALT 20 U/L (4-34); AST 21 U/L (14-36); African American GFR (CKD) 34 (>60 ml/min/1.73 sqM); Albumin 2.9 g/dL (3.5-5.0); Alkaline Phosphatase 125 U/L (38-126); Anion Gap 8 mmol/L; Blood Urea Nitrogen 27 mg/dL (7-17); Calcium 8.1 mg/dL (8.4-10.2); Carbon Dioxide 17 mmol/L (22-30); Chloride 114 mmol/L (98-107); Glucose 114 mg/dL (74-99); Magnesium 2.1 mg/dL (1.6-2.3); Non-African American GFR(CKD) 30 (>60 ml/min/1.73 sqM); Potassium 4.6 mmol/L (3.5-5.1); Sodium 139 mmol/L (137-145); Total Bilirubin 0.6 mg/dL (0.2-1.3); Total Protein 5.5 g/dL (6.3-8.2)
[2023-08-13 11:47] LABS: Glucose,Whole Blood 118 mg/dL (70-110)
--- NOTE | 2023-08-13 12:52 | P.PN ---
Subjective Progress Note Date: 08/13/23 Hospital Course: Patient is a pleasant 68-year-old female with a past medical history of hypertension, hypothyroidism, type II fxo-wlnemzl-okcgrjzaj diabetes mellitus, GERD, depression, and recurrent kidney stones with recent hospitalization for pyelonephritis with obstructive uropathy underwent cystoscopy with bilateral stent insertion on 07/21/2023. She presented to the emergency department with a chief complaint of left flank pain, fever, and chills. Patient reports he has been at her baseline and was scheduled to undergo lithotripsy and removal of ureteral stents on 08/18/2023, but awoken this morning again with sudden onset severe left flank pain, fever, and chills. Patient reports in addition to these complaints she is also experiencing urinary frequency and suprapubic pressure/fullness. She denies having any headache, lightheadedness, dizziness, changes in vision or hearing, chest pain, palpitations, shortness of breath, cough or congestion, nausea, vomiting, or any other complaints. Upon arrival to our facility, patient underwent evaluation in the emergency department. Vital signs upon arrival show blood pressure 167/81, heart rate 63, respiratory rate 20, temp 100.1 F, and SpO2 of 100% on room air. KUB was completed showing bila teral renal calculi and bilateral ureteral stents reported in appropriate position with nonspecific bowel gas pattern without radiographic evidence for acute process. Labs completed and reviewed. CBC showing leukocytosis with WBC count of 12.3 and stable normocytic anemia with hemoglobin of 10.9. BMP showing sodium 135, potassium 5.4, bicarb of 19, BUN of 40, creatinine 1.95, and GFR of 26. Blood glucose 175. Initial lactate 2.2. Liver profile unremarkable. Lipase normal findings at 111. Urinalysis positive for blood, protein, glucose, leukocytes, greater than 182 RBCs, and greater than 182 WBCs. Patient was started on IV antibiotics and admitted under our services with consultation to urology. Blood cultures resulting preliminarily positive in 2 out of 2 sets for Klebsiella pneumoniae. Infectious disease consulted. Physical exam: Patient was seen and fully evaluated at bedside this morning. Patient reports feeling "miserable" this morning. She reports feeling bloated and states return of left lower flank pain. She continues to deny having any difficulties with urination and has had no reported episodes of urinary retention or postvoid residual. She had an isolated temp over the past 24 hours with high of 100.5 F and is currently 99.5 F. She denies having any headache, lightheadedness, dizziness, chest pain, palpitations, or shortness of breath. Patient is tolerating oral intake with no episodes of nausea or vomiting. Vital signs reviewed and stable. General: Nontoxic, no distress and appears stated age. Derm: Skin warm and dry, normal coloration for ethnicity. Head: Atraumatic, normocephalic and symmetric. Eyes: EOMs intact, no lid lag, and anicteric sclera Mouth: no lip lesions, mucus membranes moist Cardiovascular: regular rate and rhythm with normal S1S2, no murmur, positive posterior tibial pulses bilaterally, and cap refill < 2 seconds. Lungs: Respirations even, regular, and unlabored on room air. Lungs CTA bilaterally, no rhonchi, no rales, no wheezing, and no accessory muscle usage. Abdominal: soft, nontender to palpation, no guarding, no appreciable organomegaly. No CVA tenderness, patient did report mild soreness to left lower flank but no increased tenderness upon palpation. Ext: ROM intact. No gross muscle atrophy, no edema, no contractures Neuro: Speech clear, face symmetrical and CN II-XII grossly intact with no noted focal neuro deficits Psych: Alert and oriented to person, place, time, and situation. Appropriate and pleasant affect. Assessment and Plan of Care: Pyelonephritis Klebsiella bacteremia Acute kidney injury Sepsis upon admission Metabolic acidosis -Urology consulted, reviewed documentation in chart. -Reviewed KUB showing bilateral renal calculi and bilateral ureteral stents reported in appropriate position with nonspecific bowel gas pattern without radiographic evidence for acute process. -Renal ultrasound was completed and radiology report reviewed showing bilateral nonobstructing renal calculi redemonstrated with moderate right and mild left- sided hydronephrosis despite bilateral double-J ureteral stents. -Blood cultures in 2 of 2 sets positive for Klebsiella pneumoniae ampicillin resistant -Urine culture preliminarily positive for gram-negative bacilli and group D Enterococcus. -Continue IV antibiotics with Rocephin 2 g IVPB every 24 hours. -Infectious disease following secondary to bacteremia. Reviewed documentation in chart. -Continue bladder scan as needed to monitor for postvoid residuals/urinary retention and strict I's and O's. -Continue to hold losartan secondary to TEJAS and hyperkalemia. -Symptomatic care and pain management. Tylenol 650 mg p.o. every 6 hours as needed for mild pain/fever. Dilaudid 0.5 mg every 3 hours as needed for moderate pain and Dilaudid 1 mg 6 hours as needed for severe pain. Hyperkalemia secondary to TEJAS. Resolved. Morning potassium 4.6. Hypomagnesemia. Resolved. Repeat magnesium 2.1 after replacement. Lactic acidosis. Lactic acidosis resolved with initial lactate 2.2 and d ecreasing down to 1.6 after aggressive IV fluid hydration.. Type II [id number] diabetes mellitus. Hold metformin and continue glycemic protocol with NovoLog sliding scale. Hypertension. Continue daily medication regimen with amlodipine 5 mg daily, losartan held secondary to TEJAS. Hypothyroidism. Continue daily medication regimen with levothyroxine 137 mcg daily. Depression. Continue daily medication regimen with Zoloft 200 mg nightly. Data and imaging reviewed: Blood cultures in 2 of 2 sets positive for Klebsiella pneumoniae ampicillin resistant Urine culture preliminarily positive for gram-negative bacilli and group D Ente rococcus. Vital signs reviewed. Blood pressure 99/95, heart rate 72, respiratory rate 16, temp 99.5 F, and SpO2 of 97% on room air. Morning labs reviewed. CBC showing improvement of leukocytosis with WBC count decreasing to 12.1 and stable normocytic anemia with hemoglobin of 8.5 as well as thrombocytopenia with platelet count of 147.. BMP showing continued elevated but stable renal function with BUN of 27, creatinine 1.76, and GFR of 30 mild metabolic acidosis with chloride of 114, bicarb 17, and anion gap of 8. Magnesium 2.1. CODE STATUS: Full code DVT prophylaxis: Heparin Anticipated discharge date: Pending clinical course Anticipated discharge place: Pending clinical course Patient was seen independently by Nurse Practitioner. This document was prepared using [employer] dictation software. Please allow for errors in nail puller while rare they do occur. Kyle Olivas NP rendered care for this patient independently, reviewed the findings and plan as documented in the note above. I did not physically speak with or examine the patient on this date. Objective - Vital Signs Vital signs: Vital Signs Temp 99.5 F 08/13/23 07:43 Pulse 72 08/13/23 07:43 Resp 16 08/13/23 07:43 BP 129/95 08/13/23 07:43 Pulse Ox 97 08/13/23 07:43 FiO2 Intake & Output 06/05/24 06/06/24 06/06/24 18:59 06:59 18:59 Intake Total 1600 1800 Balance 1600 1800 Weight 78.471 kg Intake: Intake, IV Titration 1200 Amount Sodium Chloride 0.9% 1, 1200 000 ml @ 100 mls/hr IV . Q10H JOEY Rx#:[id number] Oral 1600 600 Other: Voiding Method Toilet Toilet # Voids 2 3 - Labs CBC & Chem 7: 08/13/23 06:21 08/13/23 06:21 Labs: Abnormal Lab Results - Last 24 Hours (Table) 08/12/23 08/12/23 08/12/23 Range/Units 11:26 14:03 16:20 WBC (3.8-10.6) k/uL RBC (3.80-5.40) m/uL Hgb (11.4-16.0) gm/dL Hct (34.0-46.0) % MCHC (31.0-37.0) g/dL Plt Count (150-450) k/uL Sodium 135 L (137-145) mmol/L Chloride 110 H (98-107) mmol/L Carbon Dioxide 16 L (22-30) mmol/L BUN 35 H (7-17) mg/dL Creatinine 1.89 H (0.52-1.04) mg/dL Glucose 156 H (74-99) mg/dL POC Glucose (mg/dL) 179 H 193 H (70-110) mg/dL Calcium 7.9 L (8.4-10.2) mg/dL Total Protein (6.3-8.2) g/dL Albumin (3.5-5.0) g/dL 08/12/23 08/13/23 08/13/23 Range/Units 20:08 06:21 06:21 WBC 12.1 H (3.8-10.6) k/uL RBC 3.13 L (3.80-5.40) m/uL Hgb 8.5 L (11.4-16.0) gm/dL Hct 27.7 L (34.0-46.0) % MCHC 30.8 L (31.0-37.0) g/dL Plt Count 147 L (150-450) k/uL Sodium (137-145) mmol/L Chloride 114 H (98-107) mmol/L Carbon Dioxide 17 L (22-30) mmol/L BUN 27 H (7-17) mg/dL Creatinine 1.76 H (0.52-1.04) mg/dL Glucose 114 H (74-99) mg/dL POC Glucose (mg/dL) 141 H (70-110) mg/dL Calcium 8.1 L (8.4-10.2) mg/dL Total Protein 5.5 L (6.3-8.2) g/dL Albumin 2.9 L (3.5-5.0) g/dL 08/13/23 Range/Units 06:45 WBC (3.8-10.6) k/uL RBC (3.80-5.40) m/uL Hgb (11.4-16.0) gm/dL Hct (34.0-46.0) % MCHC (31.0-37.0) g/dL Plt Count (150-450) k/uL Sodium (137-145) mmol/L Chloride (98-107) mmol/L Carbon Dioxide (22-30) mmol/L BUN (7-17) mg/dL Creatinine (0.52-1.04) mg/dL Glucose (74-99) mg/dL POC Glucose (mg/dL) 115 H (70-110) mg/dL Calcium (8.4-10.2) mg/dL Total Protein (6.3-8.2) g/dL Albumin (3.5-5.0) g/dL Microbiology - Last 24 Hours (Table) 08/11/23 08:18 Blood Culture Gram Stain - Preliminary Blood Blood Culture - Preliminary Klebsiella pneumoniae 08/11/23 08:19 Blood Culture Gram Stain - Preliminary Blood Blood Culture - Preliminary Klebsiella pneumoniae Molecular ID
--- NOTE | 2023-08-13 15:34 | P.PN ---
Subjective Progress Note Date: 08/13/23 Principal diagnosis: Reason for follow-up is Klebsiella UTI and bacteremia Patient is a 68-year-old female with a past medical history significant for diabetes mellitus reflux hypertension osteoarthritis pneumonia recent history of admission to hospital for kidney stones presenting back to the hospital for evaluation of left flank pain and chills patient did have evidence of Klebsiella bacteremia ultrasound with bilateral renal calculus moderate right and mild left hydronephrosis urology on the case. On today's evaluation that is 08/13/2023, Patient did have resolution of her fever and is afebrile patient is currently on room air and denies having any shortness of breath, the patient denies any chest pain or cough, the patient has been complaining some headache and nausea and abdominal bloating. Patient white count is down to 12.1, creatinine 1.76 Objective - Vital Signs Vital signs: Vital Signs Temp 99.5 F 08/13/23 07:43 Pulse 72 08/13/23 07:43 Resp 16 08/13/23 07:43 BP 129/95 08/13/23 07:43 Pulse Ox 97 08/13/23 07:43 FiO2 Intake & Output 08/12/23 08/13/23 08/13/23 18:59 06:59 18:59 Intake Total 1600 1800 Balance 1600 1800 Weight 78.471 kg Intake: Intake, IV Titration 1200 Amount Sodium Chloride 0.9% 1, 1200 000 ml @ 100 mls/hr IV . Q10H JOEY Rx#:[id number] Oral 1600 600 Other: Voiding Method Toilet Toilet # Voids 2 3 - Exam GENERAL DESCRIPTION: An elderly female lying in bed in no distress RESPIRATORY SYSTEM: Unlabored breathing , decreased breath sounds at bases HEART: S1 S2 regular rate and rhythm , ABDOMEN: Soft , no tenderness EXTREMITIES: No edema feet - Labs CBC & Chem 7: 08/13/23 06:21 08/13/23 06:21 Labs: Abnormal Lab Results - Last 24 Hours (Table) 08/12/23 08/12/23 08/12/23 Range/Units 14:03 16:20 20:08 WBC (3.8-10.6) k/uL RBC (3.80-5.40) m/uL Hgb (11.4-16.0) gm/dL Hct (34.0-46.0) % MCHC (31.0-37.0) g/dL Plt Count (150-450) k/uL Sodium 135 L (137-145) mmol/L Chloride 110 H (98-107) mmol/L Carbon Dioxide 16 L (22-30) mmol/L BUN 35 H (7-17) mg/dL Creatinine 1.89 H (0.52-1.04) mg/dL Glucose 156 H (74-99) mg/dL POC Glucose (mg/dL) 193 H 141 H (70-110) mg/dL Calcium 7.9 L (8.4-10.2) mg/dL Total Protein (6.3-8.2) g/dL Albumin (3.5-5.0) g/dL 08/13/23 08/13/23 08/13/23 Range/Units 06:21 06:21 06:45 WBC 12.1 H (3.8-10.6) k/uL RBC 3.13 L (3.80-5.40) m/uL Hgb 8.5 L (11.4-16.0) gm/dL Hct 27.7 L (34.0-46.0) % MCHC 30.8 L (31.0-37.0) g/dL Plt Count 147 L (150-450) k/uL Sodium (137-145) mmol/L Chloride 114 H (98-107) mmol/L Carbon Dioxide 17 L (22-30) mmol/L BUN 27 H (7-17) mg/dL Creatinine 1.76 H (0.52-1.04) mg/dL Glucose 114 H (74-99) mg/dL POC Glucose (mg/dL) 115 H (70-110) mg/dL Calcium 8.1 L (8.4-10.2) mg/dL Total Protein 5.5 L (6.3-8.2) g/dL Albumin 2.9 L (3.5-5.0) g/dL 08/13/23 Range/Units 11:45 WBC (3.8-10.6) k/uL RBC (3.80-5.40) m/uL Hgb (11.4-16.0) gm/dL Hct (34.0-46.0) % MCHC (31.0-37.0) g/dL Plt Count (150-450) k/uL Sodium (137-145) mmol/L Chloride (98-107) mmol/L Carbon Dioxide (22-30) mmol/L BUN (7-17) mg/dL Creatinine (0.52-1.04) mg/dL Glucose (74-99) mg/dL POC Glucose (mg/dL) 118 H (70-110) mg/dL Calcium (8.4-10.2) mg/dL Total Protein (6.3-8.2) g/dL Albumin (3.5-5.0) g/dL Microbiology - Last 24 Hours (Table) 08/11/23 08:18 Blood Culture Gram Stain - Final Blood Blood Culture - Final Klebsiella pneumoniae 08/11/23 08:19 Blood Culture Gram Stain - Final Blood Blood Culture - Final Klebsiella pneumoniae Molecular ID 08/11/23 08:18 Urine Culture - Preliminary Urine,Clean Catch Gram Neg Bacilli Group D Enterococcus Assessment and Plan (1) Bacteremia due to Klebsiella pneumoniae Current Visit: Yes Status: Acute Code(s): R78.81 - BACTEREMIA; B96.1 - KLEBSIELLA PNEUMONIAE THE CAUSE OF DISEASES [facility] SNOMED Code(s): 933309957598 (2) Pyelonephritis Current Visit: Yes Status: Acute Code(s): N12 - TUBULO-INTERSTITIAL NEPHRITIS, NOT SPCF ACUTE OR CHRONIC SNOMED Code(s): 43046643 Plan: 1patient with sepsis in this patient who did have fever elevated white count source is likely complicated UTI in this patient who did have a history of renal stone requiring bilateral double-J catheter placement now with a left flank pain likely pyelonephritis etiology of sepsis. 2patient with the Klebsiella bacteremia source is likely complicated UTI 3-patient to continue with Rocephin 2 g daily while waiting for clinical improvement and normalization of the white count before transition to oral antibiotics Dictation was produced using [employer] dictation software. please excuse any grammatical, word or spelling errors. Time with Patient: Less than 30
[2023-08-13 16:41] LABS: Glucose,Whole Blood 87 mg/dL (70-110)
--- NOTE | 2023-08-13 18:55 | P.PN ---
Subjective Progress Note Date: 08/13/23 Remains afebrile, still having left flank pain blood and urine culture growing klebsiella Objective - Vital Signs Vital signs: Vital Signs Temp 98.4 F 08/13/23 14:00 Pulse 73 08/13/23 14:00 Resp 17 08/13/23 14:00 BP 156/74 08/13/23 14:00 Pulse Ox 97 08/13/23 14:00 FiO2 Intake & Output 08/12/23 08/13/23 08/13/23 18:59 06:59 18:59 Intake Total 1600 1800 Balance 1600 1800 Weight 78.471 kg Intake: Intake, IV Titration 1200 Amount Sodium Chloride 0.9% 1, 1200 000 ml @ 100 mls/hr IV . Q10H JOEY Rx#:[id number] Oral 1600 600 Other: Voiding Method Toilet Toilet Toilet # Voids 2 3 - Constitutional General appearance: Present: no acute distress - Gastrointestinal General gastrointestinal: Present: soft. Absent: distended, tenderness - Psychiatric Psychiatric: Present: A&O x's 3 - Labs CBC & Chem 7: 08/13/23 06:21 08/13/23 06:21 Labs: Abnormal Lab Results - Last 24 Hours (Table) 08/12/23 08/13/23 08/13/23 Range/Units 20:08 06:21 06:21 WBC 12.1 H (3.8-10.6) k/uL RBC 3.13 L (3.80-5.40) m/uL Hgb 8.5 L (11.4-16.0) gm/dL Hct 27.7 L (34.0-46.0) % MCHC 30.8 L (31.0-37.0) g/dL Plt Count 147 L (150-450) k/uL Chloride 114 H (98-107) mmol/L Carbon Dioxide 17 L (22-30) mmol/L BUN 27 H (7-17) mg/dL Creatinine 1.76 H (0.52-1.04) mg/dL Glucose 114 H (74-99) mg/dL POC Glucose (mg/dL) 141 H (70-110) mg/dL Calcium 8.1 L (8.4-10.2) mg/dL Total Protein 5.5 L (6.3-8.2) g/dL Albumin 2.9 L (3.5-5.0) g/dL 08/13/23 08/13/23 Range/Units 06:45 11:45 WBC (3.8-10.6) k/uL RBC (3.80-5.40) m/uL Hgb (11.4-16.0) gm/dL Hct (34.0-46.0) % MCHC (31.0-37.0) g/dL Plt Count (150-450) k/uL Chloride (98-107) mmol/L Carbon Dioxide (22-30) mmol/L BUN (7-17) mg/dL Creatinine (0.52-1.04) mg/dL Glucose (74-99) mg/dL POC Glucose (mg/dL) 115 H 118 H (70-110) mg/dL Calcium (8.4-10.2) mg/dL Total Protein (6.3-8.2) g/dL Albumin (3.5-5.0) g/dL Microbiology - Last 24 Hours (Table) 08/11/23 08:18 Blood Culture Gram Stain - Final Blood Blood Culture - Final Klebsiella pneumoniae 08/11/23 08:19 Blood Culture Gram Stain - Final Blood Blood Culture - Final Klebsiella pneumoniae Molecular ID 08/11/23 08:18 Urine Culture - Preliminary Urine,Clean Catch Gram Neg Bacilli Group D Enterococcus Assessment and Plan Assessment: 68-year-old female with history of septic stone status post bilateral stent insertion on July 20 presented back to the hospital with left flank pain, UTI and acute kidney injury. Reviewed her KUB the stent is in appropriate location, blood and urine culture growing Klebsiella. For now if clinical status improves we will plan on proceeding with bilateral ureteroscopy on August 17.
[2023-08-13 20:39] LABS: Glucose,Whole Blood 96 mg/dL (70-110)
[2023-08-14 06:38] LABS: Glucose,Whole Blood 98 mg/dL (70-110)
[2023-08-14 13:25] LABS: Glucose,Whole Blood 91 mg/dL (70-110)
--- NOTE | 2023-08-14 15:14 | P.PN ---
Subjective Progress Note Date: 08/14/23 Hospital Course: Patient is a pleasant 68-year-old female with a past medical history of hypertension, hypothyroidism, type II lbo-ucgjgts-qazehryfb diabetes mellitus, GERD, depression, and recurrent kidney stones with recent hospitalization for pyelonephritis with obstructive uropathy underwent cystoscopy with bilateral stent insertion on 07/21/2023. She presented to the emergency department with a chief complaint of left flank pain, fever, and chills. Patient reports he has been at her baseline and was scheduled to undergo lithotripsy and removal of ureteral stents on 08/18/2023, but awoken this morning again with sudden onset severe left flank pain, fever, and chills. Patient reports in addition to these complaints she is also experiencing urinary frequency and suprapubic pressure/fullness. She denies having any headache, lightheadedness, dizziness, changes in vision or hearing, chest pain, palpitations, shortness of breath, cough or congestion, nausea, vomiting, or any other complaints. Upon arrival to our facility, patient underwent evaluation in the emergency department. Vital signs upon arrival show blood pressure 167/81, heart rate 63, respiratory rate 20, temp 100.1 F, and SpO2 of 100% on room air. KUB was completed showing bila teral renal calculi and bilateral ureteral stents reported in appropriate position with nonspecific bowel gas pattern without radiographic evidence for acute process. Labs completed and reviewed. CBC showing leukocytosis with WBC count of 12.3 and stable normocytic anemia with hemoglobin of 10.9. BMP showing sodium 135, potassium 5.4, bicarb of 19, BUN of 40, creatinine 1.95, and GFR of 26. Blood glucose 175. Initial lactate 2.2. Liver profile unremarkable. Lipase normal findings at 111. Urinalysis positive for blood, protein, glucose, leukocytes, greater than 182 RBCs, and greater than 182 WBCs. Patient was started on IV antibiotics and admitted under our services with consultation to urology. Blood cultures resulting preliminarily positive in 2 out of 2 sets for Klebsiella pneumoniae. Infectious disease consulted. Physical exam: Patient was seen and fully evaluated at bedside this morning. Patient does report feeling better this morning, states only intermittent left flank pain but currently controlled. She denies any nausea or vomiting and tolerating oral intake. Patient updated we are waiting on repeat blood culture results and final urine culture results and will plan for likely discharge within the next 24 hours. Vital signs reviewed and stable. General: Nontoxic, no distress and appears stated age. Derm: Skin warm and dry, normal coloration for ethnicity. Head: Atraumatic, normocephalic and symmetric. Eyes: EOMs intact, no lid lag, and anicteric sclera Mouth: no lip lesions, mucus membranes moist Cardiovascular: regular rate and rhythm with normal S1S2, no murmur, positive posterior tibial pulses bilaterally, and cap refill < 2 seconds. Lungs: Respirations even, regular, and unlabored on room air. Lungs CTA bilaterally, no rhonchi, no rales, no wheezing, and no accessory muscle usage. Abdominal: soft, nontender to palpation, no guarding, no appreciable organomegaly. No CVA tenderness, patient did report mild soreness to left lower flank but no increased tenderness upon palpation. Ext: ROM intact. No gross muscle atrophy, no edema, no contractures Neuro: Speech clear, face symmetrical and CN II-XII grossly intact with no noted focal neuro deficits Psych: Alert and oriented to person, place, time, and situation. Appropriate and pleasant affect. Assessment and Plan of Care: Pyelonephritis Klebsiella bacteremia Acute kidney injury Sepsis upon admission Metabolic acidosis -Urology consulted, reviewed documentation in chart. -Reviewed KUB showing bilateral renal calculi and bilateral ureteral stents reported in appropriate position with nonspecific bowel gas pattern without radiographic evidence for acute process. -Renal ultrasound was completed and radiology report reviewed showing bilateral nonobstructing renal calculi redemonstrated with moderate right and mild left- sided hydronephrosis despite bilateral double-J ureteral stents. -Blood cultures in 2 of 2 sets positive for Klebsiella pneumoniae ampicillin resistant. Repeat blood culture obtained 08/13/2023 currently showing no growth to date. -Urine culture preliminarily positive for gram-negative bacilli and group D Enterococcus. Awaiting final culture and sensitivity report. -Continue IV antibiotics with Rocephin 2 g IVPB every 24 hours. -Infectious disease following secondary to bacteremia. Reviewed documentation in chart. -Continue bladder scan as needed to monitor for postvoid residuals/urinary retention and strict I's and O's. -Continue to hold losartan secondary to TEJAS and hyperkalemia. -Symptomatic care and pain management. Tylenol 650 mg p.o. every 6 hours as needed for mild pain/fever. Dilaudid 0.5 mg every 3 hours as needed for moderate pain and Dilaudid 1 mg 6 hours as needed for severe pain. Hyperkalemia secondary to TEJAS. Resolved. Morning potassium 4.6. Hypomagnesemia. Resolved. Repeat magnesium 2.1 after replacement. Lactic acidosis. Lactic acidosis resolved with initial lactate 2.2 and decreasing down to 1.6 after aggressive IV fluid hydration.. Type II vqq-ptovjcr-pwyxddjfh diabetes mellitus. Hold metformin and continue gly cemic protocol with NovoLog sliding scale. Hypertension. Continue daily medication regimen with amlodipine 5 mg daily, losartan held secondary to TEJAS. Hypothyroidism. Continue daily medication regimen with levothyroxine 137 mcg daily. Depression. Continue daily medication regimen with Zoloft 200 mg nightly. Data and imaging reviewed: Blood cultures in 2 of 2 sets positive for Klebsiella pneumoniae ampicillin resistant. Repeat blood culture obtained 08/13/2023 currently showing no growth to date. Urine culture preliminarily positive for gram-negative bacilli and group D Enterococcus. Awaiting final culture and sensitivity report. Vital signs reviewed. Blood pressure 143/80, heart rate 73, respiratory rate 16, temp 98.3 F, and SpO2 of 98% on room air. CODE STATUS: Full code DVT prophylaxis: Heparin Anticipated discharge date: Likely within the next [address]: Pending clinical course Patient was seen independently by Nurse Practitioner. This document was prepared using [employer] dictation software. Please allow for errors in packaging inspector while rare they do occur. Kyle Olivas NP rendered care for this patient independently, reviewed the findings and plan as documented in the note above. I did not physically speak with or examine the patient on this date. Objective - Vital Signs Vital signs: Vital Signs Temp 98.3 F 08/14/23 07:46 Pulse 73 08/14/23 07:46 Resp 16 08/14/23 07:46 BP 143/80 08/14/23 07:46 Pulse Ox 98 08/14/23 07:46 FiO2 Intake & Output 08/13/23 08/14/23 08/14/23 18:59 06:59 18:59 Other: Voiding Method Toilet Toilet # Voids 1 - Labs CBC & Chem 7: 08/13/23 06:21 08/13/23 06:21 Labs: Abnormal Lab Results - Last 24 Hours (Table) 08/13/23 Range/Units 11:45 POC Glucose (mg/dL) 118 H (70-110) mg/dL Microbiology - Last 24 Hours (Table) 08/11/23 08:18 Blood Culture Gram Stain - Final Blood Blood Culture - Final Klebsiella pneumoniae 08/11/23 08:19 Blood Culture Gram Stain - Final Blood Blood Culture - Final Klebsiella pneumoniae Molecular ID 08/11/23 08:18 Urine Culture - Preliminary Urine,Clean Catch Gram Neg Bacilli Group D Enterococcus
[2023-08-14 17:20] LABS: Glucose,Whole Blood 123 mg/dL (70-110)
--- NOTE | 2023-08-14 19:32 | P.PN ---
Subjective Progress Note Date: 08/14/23 Principal diagnosis: Reason for follow-up is Klebsiella UTI and bacteremia Patient is a 68-year-old female with a past medical history significant for diabetes mellitus reflux hypertension osteoarthritis pneumonia recent history of admission to hospital for kidney stones presenting back to the hospital for evaluation of left flank pain and chills patient did have evidence of Klebsiella bacteremia ultrasound with bilateral renal calculus moderate right and mild left hydronephrosis urology on the case. On today's evaluation that is 08/14/2023, patient has been afebrile, patient is breathing comfortably and is currently on room air, patient denies having any significant cough no chest pain shortness of breath, patient denies nausea vomiting or diarrhea and no abdominal pain, feeling better today. Patient did not have any lab draw today urine is growing Enterococcus in addition to the Klebsiella blood culture repeat has been negative so far Objective - Vital Signs Vital signs: Vital Signs Temp 98.3 F 08/14/23 07:46 Pulse 73 08/14/23 07:46 Resp 16 08/14/23 07:46 BP 143/80 08/14/23 07:46 Pulse Ox 98 08/14/23 07:46 FiO2 Intake & Output 08/13/23 08/14/23 08/14/23 18:59 06:59 18:59 Other: Voiding Method Toilet Toilet Toilet # Voids 1 - Exam GENERAL DESCRIPTION: An elderly female lying in bed in no distress RESPIRATORY SYSTEM: Unlabored breathing , decreased breath sounds at bases HEART: S1 S2 regular rate and rhythm , ABDOMEN: Soft , no tenderness EXTREMITIES: No edema feet - Labs CBC & Chem 7: 08/13/23 06:21 08/13/23 06:21 Labs: Microbiology - Last 24 Hours (Table) 08/11/23 08:18 Blood Culture Gram Stain - Final Blood Blood Culture - Final Klebsiella pneumoniae 08/11/23 08:19 Blood Culture Gram Stain - Final Blood Blood Culture - Final Klebsiella pneumoniae Molecular ID 08/11/23 08:18 Urine Culture - Preliminary Urine,Clean Catch Gram Neg Bacilli Group D Enterococcus Assessment and Plan (1) Bacteremia due to Klebsiella pneumoniae Current Visit: Yes Status: Acute Code(s): R78.81 - BACTEREMIA; B96.1 - KLEBSIELLA PNEUMONIAE THE CAUSE OF DISEASES [facility] SNOMED Code(s): 801622786641 (2) Pyelonephritis Current Visit: Yes Status: Acute Code(s): N12 - TUBULO-INTERSTITIAL NEPHRITIS, NOT SPCF ACUTE OR CHRONIC SNOMED Code(s): 86611671 Plan: 1patient with sepsis in this patient who did have fever elevated white count source is likely complicated UTI in this patient who did have a history of renal stone requiring bilateral double-J catheter placement now with a left flank pain likely pyelonephritis etiology of sepsis. 2patient with the Klebsiella bacteremia source is likely complicated UTI 3-patient urine is also growing Enterococcus in addition to the Klebsiella we will switch antibiotic therapy to Unasyn 3 g every 6 hours with a plan to finish therapy with oral Augmentin question concern answered Dictation was produced using [employer] dictation software. please excuse any grammatical, word or spelling errors. Time with Patient: Less than 30
[2023-08-14] MEDS: AMPICILLIN-SULBACTAM 3 GM in SODIUM CHLORIDE 0.9% 100 ML IVPB SCH (19:49)
[2023-08-14 19:50] LABS: Glucose,Whole Blood 132 mg/dL (70-110)
[2023-08-15 06:36] LABS: Glucose,Whole Blood 129 mg/dL (70-110)
[2023-08-15] MEDS: METOPROLOL TARTRATE 50 MG TAB PO STA (06:52)
[2023-08-15 10:05] LABS: HCT 28.4 % (37.2-46.3); HGB 8.6 g/dL (12.0-15.0); MCH 26.5 pg (27.0-32.0); MCHC 30.3 g/dL (32.0-37.0); MCV 87.7 FL (80.0-97.0); Mean Platelet Volume 10.4 FL (9.5-12.2); NRBC Per 100 WBC 0 X 10*3/uL (0.00-0.01); Platelet Count 201 X 10*3/uL (140-440); RBC 3.24 X 10*6/uL (4.10-5.20); RDW 15.7 % (11.5-14.5); WBC 8.88 X 10*3/uL (4.50-10.00)
[2023-08-15] MEDS: METOPROLOL TARTRATE 25 MG TAB PO SCH (10:37)
[2023-08-15] MEDS: APIXABAN 5 MG TAB PO SCH (10:37)
--- NOTE | 2023-08-15 11:30 | P.CRDCN ---
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 She was admitted to the hospital mainly because of pyelonephritis. We consulted to see the patient because of atrial fibrillation with rapid ventricular response. The patient went yesterday into atrial fibrillation with RVR and subsequently converted to normal sinus mechanism with no history of atrial fibrillation before. She was completely asymptomatic during that episode in spite of heart rate around 160 beats per minutes. No dizziness or lightheadedness and no presyncope or syncope and no symptoms of chest pain or chest discomfort or shortness of breath or any feeling of heart racing or fluttering. Further investigation performedincluding an EKG and that showed atrial fibrillation with RVR. The patient subsequently was started on oral AV garfield eufemia agents with metoprolol and also she was started on oral anticoagulation and since then she has been maintaining normal sinus mechanism. The examination is remarkable for stable vital signs with regular r ate and rhythm and soft systolic murmur and clear breathing sounds bilaterally and no edema was noted in the lower extremities. The echo was performed and still pending. Assessment Paroxysmal atrial fibrillation which is new the patient has been maintaining normal sinus mechanism Multiple comorbid conditions including diabetes and hypertension as lipidemia History of pyelonephritis Plan Agree about the treatment with oral anticoagulation and beta-eufemia Follow-up on the echocardiogram The patient likely will be able to be discharged home Past Medical History Past Medical History: Diabetes Mellitus, GERD/Reflux, Hyperlipidemia, Osteoarthritis (OA), Pneumonia, Thyroid Disorder Additional Past Medical History / Comment(s): kidney stones, diverticulitis, migraines, small hiatal hernia, History of Any Multi-Drug Resistant Organisms: None Reported Past Surgical History: Breast Surgery, Cholecystectomy, Hysterectomy, Joint Replacement, Orthopedic Surgery Additional Past Surgical History / Comment(s): left cataract, rt breast biopsy, ectopic , rt knee replacement, ORIF left foot kidney stones Past Anesthesia/Blood Transfusion Reactions: No Reported Reaction Past Psychological History: Depression Smoking Status: Former smoker Past Alcohol Use History: Rare Past Drug Use History: None Reported - Past Family History Father Family Medical History: Deep Vein Thrombosis (DVT) Mother Family Medical History: Cancer Additional Family Medical History / Comment(s): colon Medications and Allergies Home Medications Medication Instructions Recorded Confirmed Type Sertraline HCl [Zoloft] 200 mg PO HS 10/11/15 08/11/23 History Omeprazole [PriLOSEC] 20 mg PO PC-LUNCH 05/21/21 08/11/23 History Levothyroxine Sodium [Synthroid] 137 mcg PO DAILY 07/22/23 08/11/23 History Losartan [Cozaar] 75 mg PO DAILY 07/22/23 08/11/23 History Meloxicam 7.5 mg PO DAILY 07/22/23 08/11/23 History amLODIPine [Norvasc] 5 mg PO DAILY 07/22/23 08/11/23 History glipiZIDE XL [Glucotrol XL] 5 mg PO DAILY 07/22/23 08/11/23 History metFORMIN HCL 1,000 mg PO BID 07/22/23 08/11/23 History traMADol HCL 50 mg PO Q4H PRN 08/11/23 08/11/23 History Allergies Allergy/AdvReac Type Severity Reaction Status Date / Time sulfamethoxazole Allergy Severe Itching Verified 08/11/23 11:01 [From Bactrim] trimethoprim [From Bactrim] Allergy Severe Itching Verified 08/11/23 11:01 Physical Exam Vitals: Vital Signs Temp Pulse Resp BP Pulse Ox 08/15/23 07:57 98.6 F 74 14 161/76 98 08/15/23 00:39 98.8 F 75 16 132/70 97 08/14/23 18:48 98.8 F 78 16 157/75 100 08/14/23 14:00 98.6 F 84 16 147/68 97 Intake and Output 08/14/23 08/15/23 08/15/23 22:59 06:59 14:59 Other: Voiding Method Toilet Toilet # Voids 5 Results 08/15/23 04:33 08/13/23 06:21 CBC 08/15/23 Range/Units 04:33 WBC 8.88 (4.50-10.00) X 10*3/uL RBC 3.24 L (4.10-5.20) X 10*6/uL Hgb 8.6 L (12.0-15.0) g/dL Hct 28.4 L (37.2-46.3) % Plt Count 201 (140-440) X 10*3/uL Current Medications Generic Name Dose Route Start Last Admin Trade Name Yeq PRN Reason Stop Dose Admin Acetaminophen 650 mg 08/11/23 11:23 08/14/23 20:24 Acetaminophen Tab 325 Mg Tab PO 650 mg Q6HR PRN Administration Mild Pain or Fever > 100.5 Amlodipine Besylate 5 mg 08/12/23 09:00 08/15/23 10:37 Amlodipine 5 Mg Tab PO 5 mg DAILY JOEY Administration Apixaban 5 mg 08/15/23 09:00 08/15/23 10:37 Apixaban 5 Mg Tab PO 5 mg BID JOEY Administration Protocol Dextrose/Water 25 ml 08/11/23 12:03 Dextrose 50% Syringe 50 Ml IVP PER PROTOCOL PRN Hypoglycemia Protocol Dextrose/Water 50 ml 08/11/23 12:03 Dextrose 50% Syringe 50 Ml IVP PER PROTOCOL PRN Hypoglycemia Protocol Hydromorphone HCl 0.5 mg 08/11/23 11:23 08/13/23 20:52 Hydromorphone 0.5 Mg/0.5 Ml Syringe IVP 0.5 mg Q3HR PRN Administration Moderate Pain (Scale 4 to 6) Hydromorphone HCl 1 mg 08/11/23 18:09 Hydromorphone 1 Mg/Ml 1 Ml Syringe IVP Q6HR PRN Severe Pain (Scale 7 to 10) Sodium Chloride 1,000 mls @ 100 mls/hr 08/11/23 11:30 08/15/23 00:37 Saline 0.9% IV 100 mls/hr .Q10H JOEY Administration Ampicillin Sodium/Sulbactam 100 mls @ 200 mls/hr 08/14/23 19:45 08/15/23 06:32 Sodium 3 gm/ Sodium Chloride IVPB 200 mls/hr Q6HR JOEY Administration Protocol Insulin Aspart 0 unit 08/11/23 12:30 08/15/23 06:35 Insulin Aspart (Novolog) 100 Unit/Ml Vial SQ Not Given ACHS [facility] Protocol Levothyroxine Sodium 137 mcg 08/12/23 06:30 08/15/23 06:32 Levothyroxine 137 Mcg Tab PO 137 mcg DAILY@0630 JOEY Administration Metoprolol Tartrate 25 mg 08/15/23 09:00 08/15/23 10:37 Metoprolol Tartrate 25 Mg Tab PO 25 mg BID JOEY Administration Naloxone HCl 0.2 mg 08/11/23 11:23 Naloxone 0.4 Mg/Ml 1 Ml Vial IV Q2M PRN Opioid Reversal Ondansetron HCl 4 mg 08/11/23 11:23 Ondansetron 4 Mg/2 Ml Vial IVP Q8HR PRN Nausea And Vomiting Sertraline HCl 200 mg 08/11/23 21:00 08/14/23 20:24 Sertraline 100 Mg Tab PO 200 mg HS JOEY Administration Intake and Output 08/14/23 08/15/23 08/15/23 22:59 06:59 14:59 Other: Voiding Method Toilet Toilet # Voids 5 08/15/23 04:33 08/13/23 06:21
[2023-08-15 12:50] LABS: Glucose,Whole Blood 156 mg/dL (70-110)
--- NOTE | 2023-08-15 13:09 | CA ---
Transthoracic Echo Report Name: Sarah Mike Age: 68 Gender: F : 1955 Exam Date: 08/15/2023 10:12 Exam Location: [facility] Ht (in): 65 Wt (lb): 173 Ordering Physician: Kyle Olivas Attending/Referring Phys: [employer] C[employer] Apprentice Yessica Martini RDCS Procedure CPT: Indications: new onset atrial fib Cardiac Hx: Technical Quality: Fair Contrast 1: Total Dose (mL): Contrast 2: Total Dose (mL): MEASUREMENTS (Male / Female) Normal Values 2D ECHO LV Diastolic Diameter PLAX 4.6 cm 4.2 - 5.9 / 3.9 - 5.3 cm LV Systolic Diameter PLAX 2.9 cm IVS Diastolic Thickness 1.3 cm 0.6 - 1.0 / 0.6 - 0.9 cm LVPW Diastolic Thickness 1.0 cm 0.6 - 1.0 / 0.6 - 0.9 cm LV Relative Wall Thickness 0.5 RV Internal Dim ED PLAX 4.1 cm LA Volume 64.3 cm??? 18 - 58 / 22 - 52 cm??? LA Volume Index 33.5 cm???/m??? 16 - 28 cm???/m??? M-MODE Aortic Root Diameter MM 2.9 cm LA Systolic Diameter MM 4.3 cm LA Ao Ratio MM 1.5 AV Cusp Separation MM 1.8 cm DOPPLER AV Peak Velocity 150.7 cm/s AV Peak Gradient 9.1 mmHg AV Mean Velocity 92.5 cm/s AV Mean Gradient 4.1 mmHg AV Velocity Time Integral 32.7 cm LVOT Peak Velocity 105.3 cm/s LVOT Peak Gradient 4.4 mmHg LVOT Velocity Time Integral 26.7 cm MV Area PHT 6.2 cm??? Mitral E Point Velocity 138.6 cm/s Mitral A Point Velocity 109.2 cm/s Mitral E to A Ratio 1.3 MV Deceleration Time 122.7 ms MV E' Velocity 7.6 cm/s Mitral E to MV E' Ratio 18.1 TR Peak Velocity 317.4 cm/s TR Peak Gradient 40.3 mmHg Right Ventricular Systolic Press 52.3 mmHg FINDINGS Left Ventricle Mildly increased left ventricular wall thickness. Left ventricular cavity size normal. Normal left ventricular systolic function with no obvious regional wall motion abnormalities. Left ventricular ejection fraction is estimated at 55-60 %. Grade 1 diastolic dysfunction. Right Ventricle Right ventricular dilatation. Moderate to severe pulmonary hypertension. Right ventricular systolic pressure estimated at 53 mm hg. Right Atrium Mild right atrial dilatation. Left Atrium Mildly increased left atrial volume. Mildly increased left atrial area. Mitral Valve Structurally normal mitral valve. Mitral valve thickened. Mitral annular calcification. [id number] mitral regurgitation. Aortic Valve Trileaflet aortic valve. No aortic valve stenosis or regurgitation. Tricuspid Valve Structurally normal tricuspid valve. [id number] tricuspid regurgitation. Pulmonic Valve Structurally normal pulmonic valve. Trace pulmonic regurgitation. Pericardium No pericardial effusion. Aorta Normal size aortic root and proximal ascending aorta. CONCLUSIONS Normal LV systolic function Mild to moderate mitral regurgitation Mild to moderate tricuspid regurgitation Moderate pulmonary hypertension Previewed by: Dr. Demetrio Ball MD (Electronically Signed) Final Date: 15 August 2023 13:08
[2023-08-15 13:17] LABS: Magnesium 1.5 mg/dL (1.5-2.4)
[2023-08-15 13:22] LABS: ALT 14 U/L (8-44); AST 15 U/L (13-35); Albumin 3.4 g/dL (3.8-4.9); Albumin/Globulin Ratio 1.36 Ratio (1.60-3.17); Alkaline Phosphatase 108 U/L (41-126); Blood Urea Nitrogen 13.2 mg/dL (9.0-27.0); Calcium 8.4 mg/dL (8.7-10.3); Carbon Dioxide 18.2 mmol/L (21.6-31.8); Chloride 115 mmol/L (96-109); Globulin 2.5 g/dL (1.6-3.3); Glucose 130 mg/dL (70-110); Potassium 3.9 mmol/L (3.5-5.5); Sodium 147 mmol/L (135-145); Total Bilirubin 0.3 mg/dL (0.3-1.2); Total Protein 5.9 g/dL (6.2-8.2)
--- NOTE | 2023-08-15 14:40 | P.DS ---
Providers Date of admission: 08/11/23 11:19 Expected date of discharge: 08/15/23 Attending physician: Augusto Doherty MD Consults: 08/11/23 11:23 Consult Physician Urgent Consulting Provider: Cruzito Carey Consult Reason/Comments: Ureteral stent, infection Do you want consulting provider notified?: Yes 08/12/23 13:18 Consult Physician Routine Consulting Provider: Syeda Us Consult Reason/Comments: klebsiella bacteremia Do you want consulting provider notified?: Yes 08/15/23 01:32 Consult Physician Urgent Consulting Provider: Demetrio Ball Consult Reason/Comments: afib Do you want consulting provider notified?: Yes [facility] Course: Discharge Diagnosis: New onset Atrial Fibrillation with RVR, paroxysmal currently maintaining sinus mechanism. Pyelonephritis Klebsiella bacteremia Acute kidney injury Sepsis upon admission Metabolic acidosis Hyperkalemia secondary to TEJAS. Resolved. Morning potassium 3.9. Hypomagnesemia. Resolved. Repeat magnesium 2.1 after replacement. Lactic acidosis. Lactic acidosis resolved with initial lactate 2.2 and decreasing down to 1.6 after aggressive IV fluid hydration.. Type II [id number] diabetes mellitus. Resume metformin 1000 mg twice daily and glipizide 5 mg daily. Hypertension. Amlodipine increased to 10 mg daily and pt was started on metoprolol 25 mg twice daily. Hypothyroidism. Continue daily medication regimen with levothyroxine 137 mcg daily. Depression. Continue daily medication regimen with Zoloft 200 mg nightly. Hospital Course: Patient is a pleasant 68-year-old female with a past medical history of hypertension, hypothyroidism, type II giz-nooctkj-dwosmoayo diabetes mellitus, GERD, depression, and recurrent kidney stones with recent hospitalization for pyelonephritis with obstructive uropathy underwent cystoscopy with bilateral stent insertion on 07/21/2023. She presented to the emergency department with a chief complaint of left flank pain, fever, and chills. Upon arrival to our facility, patient underwent evaluation in the emergency department. Vital signs upon arrival show blood pressure 167/81, heart rate 63, respiratory rate 20, temp 100.1 F, and SpO2 of 100% on room air. KUB was completed showing bilateral renal calculi and bilateral ureteral stents reported in appropriate position with nonspecific bowel gas pattern without radiographic evidence for acute process. Labs completed and reviewed. CBC showing leukocytosis with WBC count of 12.3 and stable normocytic anemia with hemoglobin of 10.9. BMP showing sodium 135, potassium 5.4, bicarb of 19, BUN of 40, creatinine 1.95, and GFR of 26. Blood glucose 175. Initial lactate 2.2. Liver profile unremarkable. Lipase normal findings at 111. Urinalysis positive for blood, protein, glucose, leukocytes, greater than 182 RBCs, and greater than 182 WBCs. Patient was started on IV antibiotics and admitted under our services with consultation to urology. Blood cultures in 2 of 2 sets positive for Klebsiella pneumoniae ampicillin resistant. Repeat blood culture obtained 08/13/2023 showing no growth to date. Urine culture positive for Enterococcus faecalis and Klebsiella pneumoniae. On the evening patient went into new onset A-fib with RVR. EKG was completed at this time showing atrial fibrillation with RVR at 176 bpm. Patient was started on metoprolol and Eliquis and converted back into sinus mechanism. Cardiology was consulted and echocardiogram was completed. Echocardiogram showing a preserved EF of 55 to 60% with mild mitral and tricuspid regurgitation and moderate pulmonary hypertension. Patient cleared from cardiology perspective for discharge recommending outpatient follow-up in their office in 1 week. Patient also cleared from urology and infectious disease perspective with infectious disease physician recommending discharge home on Augmentin 875/125 mg twice daily for an additional 10 days to complete antibiotic course for complicated UTI resulting in Klebsiella bacteremia. Medically, patient stable for discharge at this time. Patient to follow-up outpatient with PCP Physical exam: Vital signs reviewed and stable. General: Nontoxic, no distress and appears stated age. Derm: Skin warm and dry, normal coloration for ethnicity. Head: Atraumatic, normocephalic and symmetric. Eyes: EOMs intact, no lid lag, and anicteric sclera Mouth: no lip lesions, mucus membranes moist Cardiovascular: regular rate and rhythm with normal S1S2, no murmur, positive posterior tibial pulses bilaterally, and cap refill < 2 seconds. Lungs: Respirations even, regular, and unlabored on room air. Lungs CTA bilaterally, no rhonchi, no rales, no wheezing, and no accessory muscle usage. Abdominal: soft, nontender to palpation, no guarding, no appreciable organomegaly. No CVA tenderness, patient did report mild soreness to left lower flank but no increased tenderness upon palpation. Ext: ROM intact. No gross muscle atrophy, no edema, no contractures Neuro: Speech clear, face symmetrical and CN II-XII grossly intact with no noted focal neuro deficits Psych: Alert and oriented to person, place, time, and situation. Appropriate and pleasant affect. A total of 35 minutes of time were spent preparing this complex discharge summary. Pt was discharged on 08/15/2023 at 2:25 PM. Patient was seen independently by Nurse Practitioner. This document was prepared using [employer] dictation software. Please allow for errors in film casting operator while rare they do occur. Kyle Olivas NP rendered care for this patient independently, reviewed the findings and plan as documented in the note above. I did not physically speak with or examine the patient on this date. Patient Condition at Discharge: Stable Plan - Discharge Summary Discharge Rx Participant: No New Discharge Prescriptions: New Amoxic-Pot Clav 875-125Mg [Augmentin 875-125] 1 tab PO BID 10 Days #20 tab Metoprolol Tartrate [Lopressor] 25 mg PO BID 30 Days #60 tab Apixaban [Eliquis] 5 mg PO BID 30 Days #60 tab amLODIPine [Norvasc] 10 mg PO DAILY 30 Days #60 tab Continue Sertraline HCl [Zoloft] 200 mg PO HS Omeprazole [PriLOSEC] 20 mg PO PC-LUNCH Levothyroxine Sodium [Synthroid] 137 mcg PO DAILY traMADol HCL 50 mg PO Q4H PRN PRN Reason: Pain Meloxicam 7.5 mg PO DAILY glipiZIDE XL [Glucotrol XL] 5 mg PO DAILY metFORMIN HCL 1,000 mg PO BID Discontinued amLODIPine [Norvasc] 5 mg PO DAILY Losartan [Cozaar] 75 mg PO DAILY Discharge Medication List Sertraline HCl [Zoloft] 200 mg PO HS 10/11/15 [History] Omeprazole [PriLOSEC] 20 mg PO PC-LUNCH 05/21/21 [History] Levothyroxine Sodium [Synthroid] 137 mcg PO DAILY 07/22/23 [History] Meloxicam 7.5 mg PO DAILY 07/22/23 [History] glipiZIDE XL [Glucotrol XL] 5 mg PO DAILY 07/22/23 [History] metFORMIN HCL 1,000 mg PO BID 07/22/23 [History] traMADol HCL 50 mg PO Q4H PRN 08/11/23 [History] Amoxic-Pot Clav 875-125Mg [Augmentin 875-125] 1 tab PO BID 10 Days #20 tab 08/15/23 [Rx] Apixaban [Eliquis] 5 mg PO BID 30 Days #60 tab 08/15/23 [Rx] Metoprolol Tartrate [Lopressor] 25 mg PO BID 30 Days #60 tab 08/15/23 [Rx] amLODIPine [Norvasc] 10 mg PO DAILY 30 Days #60 tab 08/15/23 [Rx] Follow up Appointment(s)/Referral(s): Demetrio Ball MD [STAFF PHYSICIAN] - 1 Week Cruzito Carey MD [STAFF PHYSICIAN] - 1 Week Harish Ruth DO [Primary Care Provider] - 1-2 days Patient Instructions/Handouts: A-fib (Atrial Fibrillation) (DC), Urinary Tract Infection in Women (DC), Hydronephrosis (DC), Ureteral Stones (DC), Bacteremia (DC) Activity/Diet/Wound Care/Special Instructions: Activity: As tolerated. Take breaks as needed. Diet: Heart healthy and carb consistent diet. Avoid salts, or foods with hidden salts such as canned or boxed foods and frozen dinners. Extra salt makes your heart work harder and traps the fluid in your body for longer. Special Instructions: Take all of your medications as directed and remember to keep all of your doctor's appointments and follow-up as needed. Thank you for allowing us to participate in your care, it was truly a pleasure having you for our patient!!! . Discharge Disposition: HOME SELF-CARE
[2023-08-15] MEDS: MAGNESIUM OXIDE 400 MG TAB PO STA (15:49)
[2023-08-15 15:50] VITALS: BP 165/73; PULSE 73; RESP 16; TEMP 99
--- NOTE | 2023-08-18 10:34 | CDI ---
Documentation Clarification Form Date: 08/18/2023 09:56:17 AM From: Marlyn Sykes RN, CCDS Phone: [phone] Admit Date: 08/11/2023 11:19:00 AM Patient Name: Sarah Mike Visit Number: [id number] Discharge Date: 08/15/2023 03:55:00 PM ATTENTION: The Clinical Documentation Specialists (CDI) and [facility] Coding Staff appreciate your assistance in clarifying documentation. Please respond to the clarification below the line at the bottom and electronically sign. The CDI & [facility] Coding staff will review the response and follow-up if needed. Please note: Queries are made part of the Legal Health Record. If you have any questions, please contact the author of this message via ITS. Dr. Augusto Doherty Complicated UTI is documented and patient has bilateral double-J ureteral stents. Additional clarification regarding the etiology of the UTI is requested. History/Risk Factors: HTN, HLD, DM, GERD and recurrent kidney stones with recent hospitalization for pyelonephritis with obstructive uropathy. Underwent cystoscopy with BL stent insertion on 07/20. She presents with left flank pain, fever and chills. Admitted with Sepsis, pyelonephritis and TEAJS. Clinical Indicators: ED: "She has bilateral ureteral stents in which she is scheduled to have her stone broken up and stents removed on the . Clinical impression: Sepsis, Pyelonephritis, Infection associated with ureteral stent." 08/10 H&P: "Patient was scheduled to undergo lithotripsy and removal of ureteral stents on 08/18/2023, but awoken this morning again with sudden onset severe left flank pain, fever, and chills." ID: "Patient with sepsis. source is likely complicated UTI. Has history of renal stone requiring bilateral double-J catheter placement now with a left flank pain, likely pyelonephritis is the etiology of sepsis." 08/10 Urinalysis: turbid, large blood, large leukocyte esterase, >182 WBC, bacteria 08/11 Urine culture: klebsiella pneumoniae Treatment: IV Unasyn 3gm Q6H 08/13-08/14; IV Rocephin 2gm x1 on 08/10; IV Rocephin 2gm Q24H 08/11-08/13; 2L 0.9 NS IV bolus x1 on 08/10 then 0.9 NS @100mL/hr 08/10-08/14 Please clarify the etiology of the UTI, if known: [ ] Bilateral double-J stents [ ] UTI not related to bilateral double-J stents [ ] Other condition, please specify [ ] Unable to determine MTDD
== END 2023-08-15 15:55 | disposition home or self-care (01) | DRG 872 ==
LOC: EC 07:38 → 4SSUR 11:19 → 1SOBS 14:52 → 6NMEDSUR 08-13 22:53
PROVIDERS: ADMIT Student in an Organized Health Care Education/Training Program; ATTEND Student in an Organized Health Care Education/Training Program
DX: A41.81 Sepsis due to Enterococcus (principal); E87.20 Acidosis, unspecified; N17.9 Acute kidney failure, unspecified; N13.6 Pyonephrosis; Z16.11 Resistance to penicillins; A41.89 Other specified sepsis; D64.9 Anemia, unspecified; E03.9 Hypothyroidism, unspecified; Z79.890 Hormone replacement therapy; K21.9 Gastro-esophageal reflux disease without esophagitis; E11.9 Type 2 diabetes mellitus without complications; E78.5 Hyperlipidemia, unspecified; E83.42 Hypomagnesemia; F32.A Depression, unspecified; E87.5 Hyperkalemia; I10 Essential (primary) hypertension; I27.20 Pulmonary hypertension, unspecified; I08.1 Rheumatic disorders of both mitral and tricuspid valves; I48.0 Paroxysmal atrial fibrillation; Z87.19 Personal history of other diseases of the digestive system; G43.909 Migraine, unspecified, not intractable, without status migrainosus; Z87.442 Personal history of urinary calculi; Z87.01 Personal history of pneumonia (recurrent); M19.90 Unspecified osteoarthritis, unspecified site; Z79.84 Long term (current) use of oral hypoglycemic drugs; Z79.1 Long term (current) use of non-steroidal anti-inflammatories (NSAID); Z79.899 Other long term (current) drug therapy; Z87.891 Personal history of nicotine dependence; Z90.710 Acquired absence of both cervix and uterus; Z96.651 Presence of right artificial knee joint; Z98.42 Cataract extraction status, left eye; Z90.49 Acquired absence of other specified parts of digestive tract; Z88.2 Allergy status to sulfonamides; Z88.1 Allergy status to other antibiotic agents
CPT/HCPCS: 36415; 74018; 76770; 80048; 80053; 81001; 83036; 83605; 83690; 83735; 84443; 85025; 85027; 87040; 87077; 87086; 87186; 93306; 96361; 96365; 96375; 96376; 99285

== ENCOUNTER 2023-08-18 09:55 | Day surgery (SDC) | payer MEDICARE ==
[~2023-08-18 09:55] MED LIST changes: +HYDROmorphone 0.5 MG/0.5 ML SYRINGE IVP PRN; -LACTATED RINGERS 1,000 ML IV SCH; +MIDAZOLAM 2 MG/2 ML VIAL IV PRN; +ONDANSETRON 4 MG/2 ML VIAL IVP ONE
--- NOTE | 2023-08-18 09:56 | P.HPIHPCON ---
History of Present Illness H&P Date: 08/18/23 Chief Complaint: Bilateral kidney stones This is a 68-year-old female that is status post bilateral stent insertion on July 20 for 5 mm left-sided UVJ stone, and multiple bilateral renal stones. Had a readmission to the hospital on August 10 for UTI, she is currently on antibi otics. She presents today for bilateral ureteroscopy and holmium laser. Aware the risk which includes but not limited to bleeding infection injury to the ureter. Risk of anesthesia was also discussed. She understood all the risk and agreed to proceed Consent for Procedure: I have explained the operation/procedure to the patient, including the risks, benefits, side effects, alternative therapies (including not receiving the proposed treatment or service), the likelihood of the patient achieving his/her goals, and potential recuperation problems for the procedure/sedation/analgesia, as well as any blood products, if indicated. I also explained to the patient the risks, benefits and side effects of the alternatives, as well as the risks related to not receiving the proposed procedure, care, treatment, or services. Past Medical History Past Medical History: Atrial Fibrillation, Diabetes Mellitus, GERD/Reflux, Hyperlipidemia, Hypertension, Osteoarthritis (OA), Pneumonia, Thyroid Disorder Additional Past Medical History / Comment(s): kidney stones, diverticulitis, migraines, small hiatal hernia, recent adm. to [facility] for sepsis, bacteremia, UTI, new onset of a-fib during hospital stay, d/c 08-15-23 History of Any Multi-Drug Resistant Organisms: None Reported Past Surgical History: Breast Surgery, Cholecystectomy, Hysterectomy, Joint Replacement, Orthopedic Surgery Additional Past Surgical History / Comment(s): left cataract, rt breast biopsy, ectopic , rt knee replacement, ORIF left foot, kidney stones, cystoscopy & alla. stent insertion 07-21-23 Past Anesthesia/Blood Transfusion Reactions: No Reported Reaction Additional Past Anesthesia/Blood Transfusion Reaction / Comment(s): no hx. of blood transfusion reaction Smoking Status: Former smoker - Past Family History Father Family Medical History: Deep Vein Thrombosis (DVT) Mother Family Medical History: Cancer Additional Family Medical History / Comment(s): colon Medications and Allergies Home Medications Medication Instructions Recorded Confirmed Type Sertraline HCl [Zoloft] 200 mg PO HS 10/11/15 08/17/23 History Omeprazole [PriLOSEC] 20 mg PO PC-LUNCH 05/21/21 08/17/23 History Levothyroxine Sodium [Synthroid] 137 mcg PO DAILY 07/22/23 08/17/23 History Meloxicam 7.5 mg PO DAILY 07/22/23 08/17/23 History glipiZIDE XL [Glucotrol XL] 5 mg PO DAILY 07/22/23 08/17/23 History metFORMIN HCL 1,000 mg PO BID 07/22/23 08/17/23 History traMADol HCL 50 mg PO Q4H PRN 08/11/23 08/17/23 History Amoxic-Pot Clav 875-125Mg 1 tab PO BID 10 Days #20 tab 08/15/23 08/17/23 Rx [Augmentin 875-125] Apixaban [Eliquis] 5 mg PO BID 30 Days #60 tab 08/15/23 08/17/23 Rx Metoprolol Tartrate [Lopressor] 25 mg PO BID 30 Days #60 tab 08/15/23 08/17/23 Rx amLODIPine [Norvasc] 10 mg PO DAILY 30 Days #60 tab 08/15/23 08/17/23 Rx Atorvastatin [Lipitor] 20 mg PO HS 08/17/23 08/17/23 History Allergies Allergy/AdvReac Type Severity Reaction Status Date / Time sulfamethoxazole Allergy Severe Itching Verified 08/17/23 09:53 [From Bactrim] trimethoprim [From Bactrim] Allergy Severe Itching Verified 08/17/23 09:53 Surgical - Exam - General no distress, moderate pain - Eyes normal ocular movement, no pale - ENT normal nares, normal mucosa - Respiratory normal expansion, normal respiratory effort - Abdomen Abdomen: soft, non tender - Psychiatric oriented to time, oriented to person, oriented to place Assessment and Plan Assessment: OR for cystoscopy, bilateral ureteroscopy, holmium laser lithotripsy, stone basketting possible stent removal versus exchange
--- NOTE | 2023-08-18 10:17 | XR ---
EXAMINATION TYPE: XR KUB DATE OF EXAM: 08/18/2023 COMPARISON: NONE HISTORY: Calcifications TECHNIQUE: One view abdominal series FINDINGS: The osseous structures are intact. The bowel gas pattern is nonspecific. Surgical clips in the right upper quadrant. There is bilateral ureteral stents with stable appearance relative to the prior exam . Right kidney: There is a 1.5 cm lower pole right renal calculus. Left kidney: There are approximate 4 calcifications overlying the proximal renal pelvis and in the lo wer pole left kidney the largest measuring 6 mm. Findings are stable. Arthropathy of the hips, diffuse osteopenia and degenerative change of the spine. Bilateral SI joint arthropathy. Calcifications in the pelvis are too small to characterize. Cannot exclude punctate distal right uret eral calculi. IMPRESSION: 1. Stable bilateral renal calculi.
[2023-08-18] MEDS: LACTATED RINGERS 1,000 ML IV SCH (10:39)
[2023-08-18] MEDS: DEXAMETHASONE SOD PHOSPHATE 4 MG/ML 1 ML VIAL IV ONE (10:40)
[2023-08-18 10:41] LABS: Glucose,Whole Blood 113 mg/dL (70-110)
[2023-08-18 10:48] LABS: HCT 29.7 % (34.0-46.0); HGB 9.4 gm/dL (11.4-16.0); MCH 26.8 pg (25.0-35.0); MCHC 31.6 g/dL (31.0-37.0); MCV 84.8 fL (80.0-100.0); Mean Platelet Volume 7.6; RDW 15.7 % (11.5-15.5); WBC 10.2 k/uL (3.8-10.6)
[2023-08-18] MEDS: IV FLUID CONTINUATION 1,000 ML IV ONE (10:48)
[2023-08-18 11:08] LABS: Platelet Count 306 k/uL (150-450)
[2023-08-18] MEDS ORDERED: fentaNYL (PF) 50 MCG/ML 2 ML AMP ONE (11:09)
[2023-08-18] MEDS ORDERED: LIDOCAINE 1% INJ 10MG/ML (20 ML MDV) ONE (11:09)
[2023-08-18] MEDS ORDERED: PROPOFOL 10 MG/ML 20 ML VIAL IV ONE (11:09)
[2023-08-18 13:13] VITALS: TEMP 97.5
--- NOTE | 2023-08-18 13:16 | FL ---
EXAMINATION TYPE: FL urography retrograde DATE OF EXAM: 08/18/2023 COMPARISON: NONE HISTORY: Fluoroscopy time. Fluoroscopy was provided to the referring clinician.
--- NOTE | 2023-08-18 13:22 | P.OP ---
Date of Procedure: 08/18/23 Preoperative Diagnosis: Bilateral renal stones Postoperative Diagnosis: Same Procedure(s) Performed: Cystoscopy, bilateral ureteroscopy, laser lithotripsy, stone basketing, right stent exchange, left stent removal and retrograde pyelogram Implants: 6 FrX 24 cm stent in the right ureter Anesthesia: OTTONIEL Surgeon: Cruzito Carey Estimated Blood Loss (ml): 5 Pathology: other (Bilateral renal stone) Condition: stable Disposition: PACU Indications for Procedure: This is a 68-year-old female that is status post bilateral stent insertion on July 20 for 5 mm left-sided UVJ stone, and multiple bilateral renal stones. Had a readmission to the hospital on August 10 for UTI, she is currently on antibiotics. She presents today for bilateral ureteroscopy and holmium laser. Aware the risk which includes but not limited to bleeding infection injury to the ureter. Risk of anesthesia was also discussed. She understood all the risk and agreed to proceed Operative Findings: Large stone in the lower pole of the right kidney, multiple stones throughout the left kidney Description of Procedure: Patient brought to the operating room, general anesthesia was induced. She was prepped and draped in sterile fashion placed in a dorsolithotomy position. Cystoscopy through the 21 [place]i sheath was inserted per urethra, cystoscopy was performed showed no abnormality within the bladder, both stents were seen p rotruding from the ureteral orifice. Next using a stent grasper the stent on the right was grasped and removed to the meatus, next a sensor wire was advanced through the stent and the stent was removed with the wire in place. The wire was advanced all the way up to the kidney. Next under fluoroscopy and 1214 [place]i access sheath was passed over the wire into the proximal ureter. Next a flexible ureteroscope was inserted through the access sheath, renoscopy was performed which showed a fairly large stone in the lower pole of the kidney, using the holmium laser the stone was fragmented into 2 pieces, at this point the 2 pieces were grasped and removed to the upper pole to allow for easier your lasering. At this time using the holmium laser the stones were dusted, any sizable stone fragments were removed using the stone basket. Repeat renoscopy showed no injury to the kidney or any sizable fragments, on fluoroscopy there was no radiopaque densities visualized. At this point a pullback ureteroscopy was performed showed no injury to the ureter or any ureteral stones, as ureteroscope was withdrawn a sensor wire was advanced through. Given the size of the stone on the right decision was made to exchange the stent, at this point in the ureteral stent was passed over the wire, the proximal curl was visualized on fluoroscopy and the distal curl was visualized using the cystoscope. At this point the cystoscope was reinserted, the left stent was grasped and removed to the meatus. Next a sensor wire was advanced through the stent and the wire was advanced to the kidney under fluoroscopy. The stent was grasped with the wire in place. Next under fluoroscopy 1214 [place]i access sheath was passed over the wire into the proximal ureter. Next a flexible ureteroscope was inserted through the access sheath, approximately 3 stones were seen in the left kidney, using the holmium laser the stones were fragmented, stone fragments were removed using the stone basket. Repeat renoscopy showed no sizable stone fragments or injury to the kidney, on fluoroscopy there was a radiopaque density seen at the level of the kidney, multiple attempts was done to try to identify the stone but I could not visualize it. At this point retrograde pyelogram was performed which showed the calcification to be outside the renal calyces, I could not identify a diverticular neck to the stone, thus the calcification was most likely parenchymal calcification. At this point pullback ureteroscopy was performed showed no injury to the ureter or any ureteral stones, there was no ureteral edema thus a stent was not placed on that side. The bladder was emptied at the end of the case. Patient tolerated procedure was taken to recovery in stable condition
[2023-08-18] MEDS: hydrALAZINE HCL 20 MG/ML 1 ML VIAL IVP STA (14:02)
[2023-08-18] MEDS: HYDROcodone/APAP 5-325MG 1 EACH TAB PO ONE (14:26)
[2023-08-18 14:32] VITALS: RESP 15
[2023-08-18 14:38] LABS: Glucose,Whole Blood 132 mg/dL (70-110)
[2023-08-18 14:44] VITALS: BP 158/70; PULSE 61
== END 2023-08-18 14:56 | disposition home or self-care (01) ==
LOC: OR 09:55
PROVIDERS: ATTEND Urology
DX: N20.0 Calculus of kidney (principal); E11.9 Type 2 diabetes mellitus without complications; E78.5 Hyperlipidemia, unspecified; I10 Essential (primary) hypertension; I48.91 Unspecified atrial fibrillation; E07.9 Disorder of thyroid, unspecified; K21.9 Gastro-esophageal reflux disease without esophagitis; M19.90 Unspecified osteoarthritis, unspecified site; G43.909 Migraine, unspecified, not intractable, without status migrainosus; F32.A Depression, unspecified; J18.9 Pneumonia, unspecified organism; Z79.01 Long term (current) use of anticoagulants; Z79.1 Long term (current) use of non-steroidal anti-inflammatories (NSAID); Z79.84 Long term (current) use of oral hypoglycemic drugs; Z79.890 Hormone replacement therapy; Z87.440 Personal history of urinary (tract) infections; Z87.891 Personal history of nicotine dependence; Z88.1 Allergy status to other antibiotic agents; Z88.2 Allergy status to sulfonamides; Z90.49 Acquired absence of other specified parts of digestive tract; Z90.710 Acquired absence of both cervix and uterus; Z96.653 Presence of artificial knee joint, bilateral
CPT/HCPCS: 85027; 82365; 74420; 74018; 52356; 52353; C2625; C1894; C1769; J0360; J1100; J0690; J2001; J3010; J2704

== ENCOUNTER 2023-08-20 23:27 | Emergency (ER) | payer MEDICARE ==
[2023-08-20 23:44] VITALS: TEMP 98.2
[2023-08-21 00:52] LABS: Anisocytosis Slight; Basophils # (A) 0.1 k/uL (0-0.2); Basophils % (A) 0 %; Eosinophils # (A) 0.3 k/uL (0-0.7); Eosinophils % (A) 2 %; HCT 28.7 % (34.0-46.0); HGB 8.9 gm/dL (11.4-16.0); Hypochromasia Slight; Lymphocytes # (A) 3.2 k/uL (1.0-4.8); Lymphocytes % (A) 23 %; MCH 26.7 pg (25.0-35.0); MCHC 31.1 g/dL (31.0-37.0); MCV 85.9 fL (80.0-100.0); Mean Platelet Volume 7.5; Monocytes # (A) 0.4 k/uL (0-1.0); Monocytes % (A) 3 %; Neutrophils # (A) 9.7 k/uL (1.3-7.7); Neutrophils % (A) 70 %; Platelet Count 297 k/uL (150-450); RBC 3.34 m/uL (3.80-5.40); RDW 16.1 % (11.5-15.5); WBC 13.9 k/uL (3.8-10.6)
[2023-08-21 01:08] LABS: ALT 10 U/L (4-34); AST 18 U/L (14-36); African American GFR (CKD) 60 (>60 ml/min/1.73 sqM); Albumin 3.5 g/dL (3.5-5.0); Alkaline Phosphatase 87 U/L (38-126); Anion Gap 8 mmol/L; Blood Urea Nitrogen 14 mg/dL (7-17); Calcium 8.3 mg/dL (8.4-10.2); Carbon Dioxide 21 mmol/L (22-30); Chloride 111 mmol/L (98-107); Glucose 91 mg/dL (74-99); Non-African American GFR(CKD) 52 (>60 ml/min/1.73 sqM); Potassium 3.3 mmol/L (3.5-5.1); Sodium 140 mmol/L (137-145); Total Bilirubin 0.4 mg/dL (0.2-1.3); Total Protein 6.1 g/dL (6.3-8.2)
[2023-08-21 01:13] LABS: Appearance,Urine Cloudy (Clear); Bacteria,Urine Rare /hpf; Bilirubin,Urine Negative (Negative); Blood,Urine Large (Negative); Color,Urine Light Yellow; Glucose,Urine (UA) Negative (Negative); Hyaline Casts,Urine 18 /lpf (0-2); Ketones,Urine Negative (Negative); Leukocyte Esterase,Urine Large (Negative); Mucus,Urine Many /hpf; Nitrite,Urine Negative (Negative); Protein,Urine 2+ (Negative); RBC,Urine >182 /hpf (0-5); Specific Gravity,Urine 1.015 (1.001-1.035); Squamous Epithelial Cell,Urine 1 /hpf (0-4); Urobilinogen,Urine <2.0 mg/dL (<2.0); WBC,Urine 160 /hpf (0-5)
[2023-08-21 02:05] VITALS: RESP 16
--- NOTE | 2023-08-21 03:35 | CT ---
EXAM: CT Abdomen and Pelvis Without Intravenous Contrast CLINICAL HISTORY: ITS.REASON CT Reason: pain, unable to urinate TECHNIQUE: Axial computed tomography images of the abdomen and pelvis without intravenous contrast. CTDI is 13.7 mGy and DLP is 716.4 mGy-cm. This CT exam was performed using one or more of the following dose reduction techniques: automated exposure control, adjustment of the mA and/or kV according to patient size, and/or use of iterative reconstruction technique. COMPARISON: No relevant prior studies available. FINDINGS: Lung bases: Unremarkable. No mass. No consolidation. ABDOMEN: Liver: Unremarkable. Gallbladder and bile ducts: Cholecystectomy. No ductal dilation. Pancreas: Unremarkable. No ductal dilation. Spleen: Unremarkable. No splenomegaly. Adrenals: Unremarkable. No mass. Kidneys and ureters: Right-sided nephroureteral stent with mild hydronephrosis the RIGHT kidney. The stent terminates in the urinary bladder which is decompressed and also contains a Villalba catheter. Multiple bilateral nonobstructing renal stones. Mild fullness of the LEFT renal obstructing system which is partially obstructed at the UVJ from the right-sided nephroureteral stent abutting the LEFT UVJ. Stomach and bowel: Diverticulosis, without acute diverticulitis. No small bowel obstruction. No free intraperitoneal air. PELVIS: Appendix: No findings to suggest acute appendicitis. Bladder: See above. Reproductive: Unremarkable as visualized. ABDOMEN and PELVIS: Intraperitoneal space: Unremarkable. No free air. No significant fluid collection. Bones/joints: Degenerative changes of the spine. No acute fracture. No dislocation. Soft tissues: Unremarkable. Vasculature: Atherosclerotic changes of the aorta. No abdominal aortic aneurysm. Lymph nodes: Unremarkable. No enlarged lymph nodes. IMPRESSION: 1. Mild fullness of the LEFT renal obstructing system which is partially obstructed at the UVJ from the right-sided nephroureteral stent abutting the LEFT UVJ. 2. Right-sided nephroureteral stent with mild hydronephrosis the RIGHT kidney. The stent terminates in the urinary bladder which is decompressed and also contains a Villalba catheter. 3. Multiple bilateral nonobstructing renal stones.
--- NOTE | 2023-08-21 04:25 | ED ---
General Adult HPI - General Chief complaint: Urogenital Stated complaint: unable to urinate Time Seen by Provider: 08/21/23 00:10 Source: patient, RN notes reviewed Mode of arrival: ambulatory Limitations: no limitations - History of Present Illness Initial comments: 68 year old female presents to the emergency department for evaluation of being unable to urinate x4 hours. Patient states that she recently underwent urinary stent with her urologist and has been urinating frequently since then. She states that this evening she noticed that she had not urinated in 4 hours. She admits to some suprapubic discomfort. Denies flank pain, fever, chills, nausea, vomiting. - Related Data Home Medications Medication Instructions Recorded Confirmed Sertraline HCl [Zoloft] 200 mg PO HS 10/11/15 08/17/23 Omeprazole [PriLOSEC] 20 mg PO PC-LUNCH 05/21/21 08/17/23 Levothyroxine Sodium [Synthroid] 137 mcg PO DAILY 07/22/23 08/17/23 Meloxicam 7.5 mg PO DAILY 07/22/23 08/18/23 glipiZIDE XL [Glucotrol XL] 5 mg PO DAILY 07/22/23 08/17/23 metFORMIN HCL 1,000 mg PO BID 07/22/23 08/17/23 traMADol HCL 50 mg PO Q4H PRN 08/11/23 08/17/23 Atorvastatin [Lipitor] 20 mg PO HS 08/17/23 08/17/23 Previous Rx's Medication Instructions Recorded Amoxic-Pot Clav 875-125Mg 1 tab PO BID 10 Days #20 tab 08/15/23 [Augmentin 875-125] Apixaban [Eliquis] 5 mg PO BID 30 Days #60 tab 08/15/23 Metoprolol Tartrate [Lopressor] 25 mg PO BID 30 Days #60 tab 08/15/23 amLODIPine [Norvasc] 10 mg PO DAILY 30 Days #60 tab 08/15/23 HYDROcodone/APAP 5-325MG [[place] 1 tab PO Q4HR PRN 3 Days #18 tab 08/18/23 5-325] Allergies Allergy/AdvReac Type Severity Reaction Status Date / Time sulfamethoxazole Allergy Severe Itching Verified 08/20/23 23:44 [From Bactrim] trimethoprim [From Bactrim] Allergy Severe Itching Verified 08/20/23 23:44 Review of Systems ROS Statement: Those systems with pertinent positive or pertinent negative responses have been documented in the HPI. ROS Other: All systems not noted in ROS Statement are negative. Past Medical History Past Medical History: Atrial Fibrillation, Diabetes Mellitus, GERD/Reflux, Hyper lipidemia, Hypertension, Osteoarthritis (OA), Pneumonia, Thyroid Disorder Additional Past Medical History / Comment(s): kidney stones, diverticulitis, migraines, small hiatal hernia, recent adm. to [facility] for sepsis, bacteremia, UTI, new onset of a-fib during hospital stay, d/c 08-15-23 History of Any Multi-Drug Resistant Organisms: None Reported Past Surgical History: Breast Surgery, Cholecystectomy, Hysterectomy, Joint Replacement, Orthopedic Surgery Additional Past Surgical History / Comment(s): left cataract, rt breast biopsy, ectopic , rt knee replacement, ORIF left foot, kidney stones, cystoscopy & alla. stent insertion 07-21-23 lithotripsy Past Anesthesia/Blood Transfusion Reactions: No Reported Reaction Additional Past Anesthesia/Blood Transfusion Reaction / Comment(s): no hx. of blood transfusion reaction Past Psychological History: Depression Smoking Status: Former smoker Past Alcohol Use History: None Reported Past Drug Use History: None Reported - Past Family History Father Family Medical History: Deep Vein Thrombosis (DVT) Mother Family Medical History: Cancer Additional Family Medical History / Comment(s): colon General Exam Limitations: no limitations General appearance: alert, in no apparent distress Head exam: Present: atraumatic, normocephalic, normal inspection Eye exam: Present: normal appearance, PERRL, EOMI. Absent: scleral icterus, conjunctival injection, periorbital swelling ENT exam: Present: normal exam, mucous membranes moist Neck exam: Present: normal inspection. Absent: tenderness, meningismus, lymphadenopathy Respiratory exam: Present: normal lung sounds bilaterally. Absent: respiratory distress, wheezes, rales, rhonchi, stridor Cardiovascular Exam: Present: regular rate, normal rhythm, normal heart sounds. Absent: systolic murmur, diastolic murmur, rubs, gallop, clicks GI/Abdominal exam: Present: soft, normal bowel sounds. Absent: distended, tenderness, guarding, rebound, rigid Extremities exam: Present: normal inspection, full ROM, normal capillary refill. Absent: tenderness, pedal edema, joint swelling, calf tenderness Back exam: Present: normal inspection Neurological exam: Present: alert, oriented X3 Psychiatric exam: Present: normal affect, normal mood Skin exam: Present: warm, dry, intact, normal color. Absent: rash Course Vital Signs 08/20/23 08/21/23 08/21/23 23:41 02:04 05:01 Temperature 98.2 F Pulse Rate 59 L 51 L 53 L Respiratory 18 16 16 Rate Blood Pressure 182/71 180/68 193/48 O2 Sat by Pulse 98 97 98 Oximetry Medical Decision Making - Medical Decision Making Was pt. sent in by a medical professional or institution (, [facility], [employer], urgent care, hospital, or long term...) When possible be specific @ -No Did you speak to anyone other than the patient for history (EMS, parent, family, police, friend...)? What history was obtained from this source @ -No Did you review nursing and triage notes (agree or disagree)? Why? @ -I reviewed and agree with nursing and triage notes Were old charts reviewed (outside hosp., previous admission, EMS record, old EKG, old radiological studies, urgent care reports/EKG's, long term records)? Report findings @ -No old charts were reviewed Differential Diagnosis (chest pain, altered mental status, abdominal pain women, abdominal pain men, vaginal bleeding, weakness, fever, dyspnea, syncope, heada silvina, dizziness, GI bleed, back pain, seizure, CVA, palpatations, mental health, musculoskeletal)? @ -UTI, TEJAS, nephrolithiasis, this list is not all inclusive EKG interpreted by me (3pts min.). @ -None X-rays interpreted by me (1pt min.). @ -None done CT interpreted by me (1pt min.). @ -CT abdomen pelvis shows mild fullness of the left renal collecting system partially obstructed at the UVJ from the right-sided stent, mild right hydronephrosis with a decompressed bladde U/S interpreted by me (1pt. min.). @ -None done What testing was considered but not performed or refused? (CT, X-rays, U/S, labs)? Why? @ -None What meds were considered but not given or refused? Why? @ -None Did you discuss the management of the patient with other professionals (professionals i.e. , [facility], [employer], lab, RT, psych nurse, child welfare social worker, director of business development, teacher, disciplinary hearing officer, pillowcase maker)? Give summary @ -Management discussed with urology, Dr. Schofield, who believes patient stable to be discharged with outpatient followup Was smoking cessation discussed for >3mins.? @ -No Was critical care preformed (if so, how long)? @ -No Were there social determinants of health that impacted care today? How? (Homeles sness, low income, unemployed, alcoholism, drug addiction, transportation, low edu. Level, literacy, decrease access to med. care, group home, rehab)? @ -No Was there de-escalation of care discussed even if they declined (Discuss DNR or withdrawal of care, Hospice)? DNR status @ -No What co-morbidities impacted this encounter? (DM, HTN, Smoking, COPD, CAD, Cancer, CVA, ARF, Chemo, Hep., AIDS, mental health diagnosis, sleep apnea, morbid obesity)? @ -Urinary stent in place Was patient admitted / discharged? Hospital course, mention meds given and route, prescriptions, significant lab abnormalities, going to OR and other pertinent info. @ -Discharged. Patient presented to the emergency department for being unable to urinate x4 hours. Patient underwent labs. Mild leukocytosis with 13.9, hemoglobin 9; creatinine 1.1, lactic acid 1.4; UA shows large blood CT abdomen pelvis shows mild fullness of the left renal collecting system partially obstructed at the UVJ from the right-sided stent, mild right hydronephrosis with a decompressed bladder. Prior to CT scan, patient underwent Villalba cathete rization with minimal output. While awaiting the results of studies, patient had 350 cc of output into the Villalba bag. The results were reviewed and discussed with urology, Dr. Schofield. Villalba removed and patient will follow up outpatient with her urologist, Dr. Edwards. Patient understanding agreeable with this plan. Patient stable at time of discharge. Case discussed with Dr. Mariscal. Undiagnosed new problem with uncertain prognosis? @ -No Drug Therapy requiring intensive monitoring for toxicity (Heparin, Nitro, Insulin, Cardizem)? @ -No Were any procedures done? @ -No Diagnosis/symptom? @ -Dysuria Acute, or Chronic, or Acute on Chronic? @ -Acute Uncomplicated (without systemic symptoms) or Complicated (systemic symptoms)? @ -Uncomplicated Side effects of treatment? @ -No Exacerbation, Progression, or Severe Exacerbation? @ -No Poses a threat to life or bodily function? How? (Chest pain, [place], [place], pneumonia, PE, COPD, DKA, ARF, appy, cholecystitis, CVA, Diverticulitis, Homicidal, Suicidal, threat to staff... and all critical care pts) @ -No - Lab Data Result diagrams: 08/21/23 00:30 08/21/23 00:30 Lab Results 08/21/23 08/21/23 08/21/23 Range/Units 00:30 00:30 00:30 WBC 13.9 H (3.8-10.6) k/uL RBC 3.34 L (3.80-5.40) m/uL Hgb 8.9 L (11.4-16.0) gm/dL Hct 28.7 L (34.0-46.0) % MCV 85.9 (80.0-100.0) fL MCH 26.7 (25.0-35.0) pg MCHC 31.1 (31.0-37.0) g/dL RDW 16.1 H (11.5-15.5) % Plt Count 297 (150-450) k/uL MPV 7.5 Neutrophils % 70 % Lymphocytes % 23 % Monocytes % 3 % Eosinophils % 2 % Basophils % 0 % Neutrophils # 9.7 H (1.3-7.7) k/uL Lymphocytes # 3.2 (1.0-4.8) k/uL Monocytes # 0.4 (0-1.0) k/uL Eosinophils # 0.3 (0-0.7) k/uL Basophils # 0.1 (0-0.2) k/uL Hypochromasia Slight Anisocytosis Slight Sodium 140 (137-145) mmol/L Potassium 3.3 L (3.5-5.1) mmol/L Chloride 111 H (98-107) mmol/L Carbon Dioxide 21 L (22-30) mmol/L Anion Gap 8 mmol/L BUN 14 (7-17) mg/dL Creatinine 1.11 H (0.52-1.04) mg/dL Est GFR (CKD-EPI)AfAm 60 (>60 ml/min/1.73 sqM) Est GFR (CKD-EPI)NonAf 52 (>60 ml/min/1.73 sqM) Glucose 91 (74-99) mg/dL Plasma Lactic Acid Anton (0.7-2.0) mmol/L Calcium 8.3 L (8.4-10.2) mg/dL Total Bilirubin 0.4 (0.2-1.3) mg/dL AST 18 (14-36) U/L ALT 10 (4-34) U/L Alkaline Phosphatase 87 (38-126) U/L Total Protein 6.1 L (6.3-8.2) g/dL Albumin 3.5 (3.5-5.0) g/dL Urine Color Light Yellow Urine Appearance Cloudy H (Clear) Urine pH 6.0 (5.0-8.0) Ur Specific [place] 1.015 (1.001-1.035) Urine Protein 2+ H (Negative) Urine Glucose (UA) Negative (Negative) Urine Ketones Negative (Negative) Urine Blood Large H (Negative) Urine Nitrite Negative (Negative) Urine Bilirubin Negative (Negative) Urine Urobilinogen <2.0 (<2.0) mg/dL Ur Leukocyte Esterase Large H (Negative) Urine RBC >182 H (0-5) /hpf Urine WBC 160 H (0-5) /hpf Ur Squamous Epith Cells 1 (0-4) /hpf Urine Bacteria Rare H (None) /hpf Hyaline Casts 18 H (0-2) /lpf Urine Mucus Many H (None) /hpf 08/21/23 Range/Units 00:30 WBC (3.8-10.6) k/uL RBC (3.80-5.40) m/uL Hgb (11.4-16.0) gm/dL Hct (34.0-46.0) % MCV (80.0-100.0) fL MCH (25.0-35.0) pg MCHC (31.0-37.0) g/dL RDW (11.5-15.5) % Plt Count (150-450) k/uL MPV Neutrophils % % Lymphocytes % % Monocytes % % Eosinophils % % Basophils % % Neutrophils # (1.3-7.7) k/uL Lymphocytes # (1.0-4.8) k/uL Monocytes # (0-1.0) k/uL Eosinophils # (0-0.7) k/uL Basophils # (0-0.2) k/uL Hypochromasia Anisocytosis Sodium (137-145) mmol/L Potassium (3.5-5.1) mmol/L Chloride (98-107) mmol/L Carbon Dioxide (22-30) mmol/L Anion Gap mmol/L BUN (7-17) mg/dL Creatinine (0.52-1.04) mg/dL Est GFR (CKD-EPI)AfAm (>60 ml/min/1.73 sqM) Est GFR (CKD-EPI)NonAf (>60 ml/min/1.73 sqM) Glucose (74-99) mg/dL Plasma Lactic Acid Anton 1.4 (0.7-2.0) mmol/L Calcium (8.4-10.2) mg/dL Total Bilirubin (0.2-1.3) mg/dL AST (14-36) U/L ALT (4-34) U/L Alkaline Phosphatase (38-126) U/L Total Protein (6.3-8.2) g/dL Albumin (3.5-5.0) g/dL Urine Color Urine Appearance (Clear) Urine pH (5.0-8.0) Ur Specific [place] (1.001-1.035) Urine Protein (Negative) Urine Glucose (UA) (Negative) Urine Ketones (Negative) Urine Blood (Negative) Urine Nitrite (Negative) Urine Bilirubin (Negative) Urine Urobilinogen (<2.0) mg/dL Ur Leukocyte Esterase (Negative) Urine RBC (0-5) /hpf Urine WBC (0-5) /hpf Ur Squamous Epith Cells (0-4) /hpf Urine Bacteria (None) /hpf Hyaline Casts (0-2) /lpf Urine Mucus (None) /hpf Disposition Clinical Impression: Nephrolithiasis Disposition: HOME SELF-CARE Condition: Stable Instructions (If sedation given, give patient instructions): Acute Urinary Retention in Women (ED) Is patient prescribed a controlled substance at d/c from ED?: No Referrals: Harish Ruth DO [Primary Care Provider] - 1-2 days
[2023-08-21] MEDS: POTASSIUM CHLORIDE ER 20 MEQ TAB.ER PO STA (04:56)
[2023-08-21 05:03] VITALS: BP 193/48; PULSE 53
== END 2023-08-21 05:01 | disposition home or self-care (01) ==
LOC: EC 23:27
DX: N13.2 Hydronephrosis with renal and ureteral calculous obstruction (principal); Z88.2 Allergy status to sulfonamides; Z88.8 Allergy status to other drugs, medicaments and biological substances; Z87.891 Personal history of nicotine dependence
CPT/HCPCS: 36415; 51701; 51702; 74176; 80053; 81001; 83605; 85025; 87086; 99284

== ENCOUNTER → 2024-02-16 | Outpatient (CLI) | payer MEDICARE ==
[2024-02-16 15:53] LABS: Basophils # (A) 0.04 X 10*3/uL (0.00-0.10); Basophils % (A) 0.6 %; Eosinophils # (A) 0.29 X 10*3/uL (0.04-0.35); Eosinophils % (A) 4.3 %; HCT 40.3 % (37.2-46.3); HGB 12.1 g/dL (12.0-15.0); Lymphocytes # (A) 1.76 X 10*3/uL (0.90-5.00); Lymphocytes % (A) 26.1 %; MCH 26.4 pg (27.0-32.0); MCV 87.8 FL (80.0-97.0); Mean Platelet Volume 10.4 FL (9.5-12.2); Monocytes # (A) 0.41 X 10*3/uL (0.20-1.00); Monocytes % (A) 6.1 %; NRBC Per 100 WBC 0 X 10*3/uL (0.00-0.01); Neutrophils # (A) 4.22 X 10*3/uL (1.80-7.70); Neutrophils % (A) 62.6 %; Platelet Count 213 X 10*3/uL (140-440); RBC 4.59 X 10*6/uL (4.10-5.20); RDW 15.6 % (11.5-14.5); WBC 6.74 X 10*3/uL (4.50-10.00)
[2024-02-16 16:00] LABS: Chol/HDL Ratio 2.84 Ratio
[2024-02-16 16:01] LABS: % Iron Saturation 9.45 (12.00-45.00); ALT 15 U/L (8-44); AST 19 U/L (13-35); Albumin 4.5 g/dL (3.8-4.9); Albumin/Globulin Ratio 1.67 Ratio (1.60-3.17); Alkaline Phosphatase 91 U/L (41-126); BUN/Creat Ratio 28.22 Ratio (12.00-20.00); Blood Urea Nitrogen 25.4 mg/dL (9.0-27.0); Calcium 9.8 mg/dL (8.7-10.3); Carbon Dioxide 25.1 mmol/L (21.6-31.8); Chloride 103 mmol/L (96-109); Ferritin 19.6 ng/mL (10.0-291.0); Globulin 2.7 g/dL (1.6-3.3); Glucose 129 mg/dL (70-110); Iron 45 UG/DL (50-170); LDL Cholesterol,Calculated 93.2 mg/dL (0.0-131.0); Magnesium 1.8 mg/dL (1.5-2.4); Potassium 4.5 mmol/L (3.5-5.5); Sodium 140 mmol/L (135-145); T4, Free (Free Thyroxine) 1.05 ng/dL (0.80-1.80); Total Bilirubin 0.3 mg/dL (0.3-1.2); Total Iron Binding Capacity 476 UG/DL (228-460); Total Protein 7.2 g/dL (6.2-8.2)
== END | disposition home or self-care (01) ==
LOC: LABWHC1 08:57
PROVIDERS: ATTEND Internal Medicine
DX: E03.9 Hypothyroidism, unspecified (principal); I10 Essential (primary) hypertension; E11.9 Type 2 diabetes mellitus without complications; M85.80 Other specified disorders of bone density and structure, unspecified site; N20.0 Calculus of kidney; D50.9 Iron deficiency anemia, unspecified
CPT/HCPCS: 36415; 80053; 80061; 82043; 82306; 82570; 82607; 82728; 82746; 83036; 83540; 83550; 83735; 84439; 84443; 84550; 85025

== ENCOUNTER → 2024-02-29 | Outpatient (CLI) | payer MEDICARE ==
[2024-02-29 16:52] LABS: Appearance,Urine Turbid (Clear); Bacteria,Urine Few /hpf; Bilirubin,Urine Negative (Negative); Blood,Urine Large (Negative); Budding Yeast,Urine Many /hpf; Calcium Oxalate Crystals,Urine Few /hpf; Color,Urine Light Red; Glucose,Urine (UA) Negative (Negative); Ketones,Urine Negative (Negative); Leukocyte Esterase,Urine Trace (Negative); Mucus,Urine Occasional /hpf; Nitrite,Urine Negative (Negative); PH, Urine 5.5 (5.0-8.0); Protein,Urine 1+ (Negative); RBC,Urine >182 /hpf (0-5); Specific Gravity,Urine 1.023 (1.001-1.035); Squamous Epithelial Cell,Urine 1 /hpf (0-4); Urobilinogen,Urine <2.0 mg/dL (<2.0); WBC,Urine 45 /hpf (0-5)
== END | disposition home or self-care (01) ==
LOC: LABWHC1 15:10
PROVIDERS: ATTEND Internal Medicine
DX: N20.0 Calculus of kidney (principal)
CPT/HCPCS: 81001; 87086

== ENCOUNTER → 2024-02-29 | Outpatient (CLI) | payer MEDICARE ==
--- NOTE | 2024-02-29 16:30 | XR ---
EXAMINATION TYPE: XR KUB DATE OF EXAM: 02/29/2024 3:47 PM COMPARISON: 08/18/2023 CLINICAL INDICATION: Female, 68 years old with history of I65.29 OCCLUSION AND STENOSIS OF UNSPECIFIE D CAROT; TECHNIQUE: One radiographic view of the abdomen was obtained. FINDINGS: Ureteral stents have been removed. The bowel gas pattern is nonspecific without dilated loo ps of small or large bowel. . Fecal material and gas are demonstrated throughout the colon and rectum . There is no evidence for organomegaly or pneumoperitoneum. The osseous structures are intact. No abnormal calcifications are present. Right upper quadrant cholecystectomy clips. Left lateral abdomen surgical clip. Left renal calculi measuring up to 9 mm. At least 3 calculi visualized. No coracoid visualized lung c ourse of the ureter. IMPRESSION: 1. Left renal calculi measuring up to 9 mm. 2. Nonspecific bowel gas pattern without radiographic evidence for acute process. [facility], , 02/29/2024 4:28 PM
== END | disposition home or self-care (01) ==
LOC: RADXRMAIN 15:31
PROVIDERS: ATTEND Internal Medicine
DX: N20.0 Calculus of kidney (principal)
CPT/HCPCS: 74018

== ENCOUNTER 2024-06-27 12:11 | Emergency (ER) | payer MEDICARE ==
[2024-06-27 12:17] VITALS: TEMP 97.8
[2024-06-27] MEDS: SODIUM CHLORIDE 0.9% 1,000 ML IV ONE (12:58)
[2024-06-27] MEDS: KETOROLAC 15 MG/ML 1 ML VIAL IVP STA (12:58)
[2024-06-27 13:07] LABS: Appearance,Urine Cloudy (Clear); Bilirubin,Urine Negative (Negative); Blood,Urine Trace (Negative); Calcium Oxalate Crystals,Urine Many /hpf; Color,Urine Yellow; Glucose,Urine (UA) Negative (Negative); Hyaline Casts,Urine 43 /lpf (0-2); Ketones,Urine Negative (Negative); Leukocyte Esterase,Urine Small (Negative); Mucus,Urine Rare /hpf; Nitrite,Urine Negative (Negative); Protein,Urine Trace (Negative); RBC,Urine 5 /hpf (0-5); Specific Gravity,Urine 1.029 (1.001-1.035); Squamous Epithelial Cell,Urine 1 /hpf (0-4); WBC,Urine 17 /hpf (0-5)
[2024-06-27 13:15] LABS: Basophils # (A) 0.02 10*3/uL (0.00-0.10); Basophils % (A) 0.2 %; Eosinophils # (A) 0.34 10*3/uL (0.04-0.35); HCT 34.9 % (37.2-46.3); HGB 11.2 g/dL (12.0-15.0); Lymphocytes # (A) 2.63 10*3/uL (0.90-5.00); Lymphocytes % (A) 30.8 %; MCH 27.9 pg (27.0-32.0); MCHC 32.1 g/dL (32.0-37.0); MCV 86.8 fL (80.0-97.0); Mean Platelet Volume 9.8 fL (9.5-12.2); Monocytes # (A) 0.64 10*3/uL (0.20-1.00); Monocytes % (A) 7.5 %; Neutrophils % (A) 57.4 %; Platelet Count 187 10*3/uL (140-440); RBC 4.02 10*6/uL (4.10-5.20); RDW 14.4 % (11.5-14.5); WBC 8.54 10*3/uL (4.50-10.00)
[2024-06-27 13:27] LABS: ALT 17 U/L (4-34); AST 22 U/L (14-36); African American GFR (CKD) 86 (>60 ml/min/1.73 sqM); Albumin 4.2 g/dL (3.5-5.0); Alkaline Phosphatase 63 U/L (38-126); Anion Gap 7 mmol/L; Blood Urea Nitrogen 29 mg/dL (7-17); Carbon Dioxide 23 mmol/L (22-30); Chloride 107 mmol/L (98-107); Glucose 93 mg/dL (74-99); Magnesium 1.7 mg/dL (1.6-2.3); Non-African American GFR(CKD) 74 (>60 ml/min/1.73 sqM); Potassium 4.9 mmol/L (3.5-5.1); Sodium 137 mmol/L (137-145); Total Bilirubin 0.5 mg/dL (0.2-1.3); Total Protein 6.7 g/dL (6.3-8.2)
[2024-06-27 13:30] LABS: INR 0.9 (<1.2); Partial Thromboplastin Time 23.3 sec (22.0-30.0); Prothrombin Time 10.6 sec (10.0-12.5)
--- NOTE | 2024-06-27 13:42 | XR ---
EXAMINATION TYPE: XR chest 2V DATE OF EXAM: 06/27/2024 1:35 PM COMPARISON: Chest radiographs from 11/05/2021 TECHNIQUE: XR chest 2V Frontal and lateral views of the chest. CLINICAL INDICATION:Female, 69 years old with history of Weakness; FINDINGS: Lungs/Pleura: There is no evidence of pleural effusion, focal consolidation, or pneumothorax. Pulmonary vascularity: Unremarkable. Heart/mediastinum: Cardiomediastinal silhouette is unremarkable. Atherosclerotic calcifications are seen in the aorta. Musculoskeletal: No acute osseous pathology. IMPRESSION: No acute cardiopulmonary disease/process. [facility], , 06/27/2024 1:40 PM
[2024-06-27 13:44] VITALS: RESP 18
--- NOTE | 2024-06-27 14:43 | US ---
EXAMINATION TYPE: US kidneys/renal and bladder DATE OF EXAM: 06/27/2024 COMPARISON: CT & US CLINICAL INDICATION: Female, 69 years old with history of eval for hydronephrosis/stone; UTI, back pa in TECHNIQUE: Grayscale imaging of the bilateral kidneys and urinary bladder: FINDINGS: EXAM MEASUREMENTS: Right Kidney: 11.2 x 5.3 x 5.7 cm Left Kidney: 9.5 x 5.4 x 4.9 cm Right Kidney: Mildly dilated renal pelvis, improvement when compared to prior US Left Kidney: Mildly dilated renal pelvis, multiple echogenic foci with shadowing scattered throughout kidney, largest at lower pole= 8mm in size Bladder: wnl Bilateral Jets seen: Yes Mildly dilated bilateral renal pelvises without overt hydronephrosis. No right nephrolithiasis. Multi ple shadowing left nephrolithiasis with largest measuring 3 mm in the lower pole. Corticomedullary di fferentiation is maintained bilaterally. No masses are identified. The urinary bladder is anechoic. Bilateral ureteral jets identified. IMPRESSION: 1. Mildly dilated bilateral renal pelvises without overt hydronephrosis. 2. Multiple nonobstructive left renal calculi. [facility], , 06/27/2024 2:40 PM
--- NOTE | 2024-06-27 15:20 | ED ---
General Adult HPI - General Chief complaint: Urogenital Stated complaint: ABD and Lower Back Pain Time Seen by Provider: 06/27/24 12:18 Source: patient, RN notes reviewed, old records reviewed Mode of arrival: ambulatory Limitations: no limitations - History of Present Illness Initial comments: Patient is a 69-year-old female presents emergency department complaining of lower abdominal pain as well as lower back pain. Pain is bilateral in both the abdomen and back. States this is similar to prior episodes of UTIs. Does have a history of kidney stones which she states this does not feel like. Endorses some increased urinary frequency as well as some mild dysuria. Denies any hematuria. Denies any fevers, chills, cough. Denies any nausea or vomiting or diarrhea. Denies any vaginal discharge or bleeding. Patient is concerned bec ause she does have the history of kidney stones as well as septic stones. Presents for further evaluation at this time. Incidentally, patient was found to be bradycardic upon arrival. She does have a history of bradycardia and they have been messing with her metoprolol medication to attempt to obtain better control. States that is not atypical for heart rates to be in the low 40s. Presents for further evaluation at this time. Denies chest pain, lightheadedness, dizziness, weakness. - Related Data Home Medications Medication Instructions Recorded Confirmed Sertraline HCl [Zoloft] 200 mg PO HS 10/11/15 08/17/23 Omeprazole [PriLOSEC] 20 mg PO PC-LUNCH 05/21/21 08/17/23 Levothyroxine Sodium [Synthroid] 137 mcg PO DAILY 07/22/23 08/17/23 Meloxicam 7.5 mg PO DAILY 07/22/23 08/18/23 glipiZIDE XL [Glucotrol XL] 5 mg PO DAILY 07/22/23 08/17/23 metFORMIN HCL 1,000 mg PO BID 07/22/23 08/17/23 traMADol HCL 50 mg PO Q4H PRN 08/11/23 08/17/23 Atorvastatin [Lipitor] 20 mg PO HS 08/17/23 08/17/23 Previous Rx's Medication Instructions Recorded Amoxic-Pot Clav 875-125Mg 1 tab PO BID 10 Days #20 tab 08/15/23 [Augmentin 875-125] Apixaban [Eliquis] 5 mg PO BID 30 Days #60 tab 08/15/23 Metoprolol Tartrate [Lopressor] 25 mg PO BID 30 Days #60 tab 08/15/23 amLODIPine [Norvasc] 10 mg PO DAILY 30 Days #60 tab 08/15/23 HYDROcodone/APAP 5-325MG [[place] 1 tab PO Q4HR PRN 3 Days #18 tab 08/18/23 5-325] Nitrofurantoin Monohyd/M-Cryst 100 mg PO Q12HR 7 Days #14 cap 06/27/24 [Macrobid] Allergies Allergy/AdvReac Type Severity Reaction Status Date / Time sulfamethoxazole Allergy Severe Itching Verified 06/27/24 12:17 [From Bactrim] trimethoprim [From Bactrim] Allergy Severe Itching Verified 06/27/24 12:17 Review of Systems ROS Statement: Those systems with pertinent positive or pertinent negative responses have been documented in the HPI. Review of Systems: CONST: Denies fever EYES: Denies blurry vision ENT: Denies nasal congestion C/V: Denies Chest pain RESP: Denies shortness of breath GI: Endorses lower abdominal pain : Endorses dysuria SKIN: Denies rash. MSK: Denies joint pain. NEURO: Denies headache ROS Other: All systems not noted in ROS Statement are negative. Past Medical History Past Medical History: Atrial Fibrillation, Diabetes Mellitus, GERD/Reflux, Hyperlipidemia, Hypertension, Osteoarthritis (OA), Pneumonia, Thyroid Disorder Additional Past Medical History / Comment(s): kidney stones, diverticulitis, migraines, small hiatal hernia, recent adm. to [facility] for sepsis, bacteremia, UTI, new onset of a-fib during hospital stay, d/c 08-15-23 History of Any Multi-Drug Resistant Organisms: None Reported Past Surgical History: Breast Surgery, Cholecystectomy, Hysterectomy, Joint Replacement, Orthopedic Surgery Additional Past Surgical History / Comment(s): left cataract, rt breast biopsy, ectopic , rt knee replacement, ORIF left foot, kidney stones, cystoscopy & alla. stent insertion 07-21-23 lithotripsy Past Anesthesia/Blood Transfusion Reactions: No Reported Reaction Additional Past Anesthesia/Blood Transfusion Reaction / Comment(s): no hx. of blood transfusion reaction Past Psychological History: Depression Smoking Status: Never smoker Past Alcohol Use History: None Reported Past Drug Use History: None Reported - Past Family History Father Family Medical History: Deep Vein Thrombosis (DVT) Mother Family Medical History: Cancer Additional Family Medical History / Comment(s): colon General Exam - General Exam Comments Initial Comments: General: Appears in no acute distress. HEAD: Normal with no signs of head trauma. EYES: EOMI ENT: Hearing grossly intact, normal oropharynx. RESPIRATORY: Clear breath sounds bilaterally. No wheezes, rales, or rhonchi. C/V: Regular rate and rhythm. S1 and S2 auscultated, no edema, peripheral pulses 2+ and intact throughout ABD: Abdomen soft, nondistended. No significant tenderness to palpation in the lower abdomen. Guarding. No rebound tenderness. No CVA tenderness to percussion. EXT: No obvious deformity SKIN: No rashes or lesions observed on exposed skin. NEURO: Alert and oriented x 4. Limitations: no limitations Course Vital Signs 06/27/24 06/27/24 06/27/24 12:14 13:42 15:31 Temperature 97.8 F Pulse Rate 39 L 61 62 Respiratory 17 18 18 Rate Blood Pressure 129/59 151/69 167/68 O2 Sat by Pulse 97 98 99 Oximetry Medical Decision Making - Medical Decision Making Was pt. sent in by a medical professional or institution (, PA, [facility], urgent care, hospital, or skilled nursing...) When possible be specific @ -No Did you speak to anyone other than the patient for history (EMS, parent, family, police, friend...)? What history was obtained from this source @ -No Did you review nursing and triage notes (agree or disagree)? Why? @ -I reviewed and agree with nursing and triage notes Were old charts reviewed (outside hosp., previous admission, EMS record, old EKG, old radiological studies, urgent care reports/EKG's, skilled nursing records)? Report findings @ -Charts reviewed which do show patient's heart rate being bradycardic in the 50s. This is from EKGs from 2021. Does have documented bradycardia on vitals from August 2023 as well. Patient states she has been bradycardic down to 40 in the past, and this is not abnormal for her. She is asymptomatic. Differential Diagnosis (chest pain, altered mental status, abdominal pain women, abdominal pain men, vaginal bleeding, weakness, fever, dyspnea, syncope, headache, dizziness, GI bleed, back pain, seizure, CVA, palpatations, mental health, musculoskeletal)? @ -UTI, electrolyte abnormality, bradycardia, kidney stone. This list is not all inclusive. EKG interpreted by me (3pts min.). @ -As above X-rays interpreted by me (1pt min.). @ -Chest x-ray reveals no obvious acute cardiopulmonary process. CT interpreted by me (1pt min.). @ -None done U/S interpreted by me (1pt. min.). @ -None done What testing was considered but not performed or refused? (CT, X-rays, U/S, labs)? Why? @ -Considered CT imaging of the abdomen pelvis however patient and I both agreed to defer until results of imaging with ultrasound as well as laboratory studies. What meds were considered but not given or refused? Why? @ -None Did you discuss the management of the patient with other professionals (professionals i.e. , PA, [facility], lab, RT, psych nurse, social media assistant, glassine machine tender, teacher, fisheries officer, case management rn)? Give summary @ -No Was smoking cessation discussed for >3mins.? @ -No Was critical care preformed (if so, how long)? @ -No Were there social determinants of health that impacted care today? How? (Homelessness, low income, unemployed, alcoholism, drug addiction, transportation, low edu. Level, literacy, decrease access to med. care, skilled nursing, rehab)? @ -No Was there de-escalation of care discussed even if they declined (Discuss DNR or withdrawal of care, Hospice)? DNR status @ -No What co-morbidities impacted this encounter? (DM, HTN, Smoking, COPD, CAD, Cancer, CVA, ARF, Chemo, Hep., AIDS, mental health diagnosis, sleep apnea, morbid obesity)? @ -Sinus bradycardia Was patient admitted / discharged? Hospital course, mention meds given and route, prescriptions, significant lab abnormalities, going to OR and other pertinent info. @ -Patient presents emergency department complaining of lower abdominal discomfort. Concern for possible UTI. Does have a history of a septic stone. We will obtain ultrasound of the bladder and kidneys as well as workup the asymptomatic bradycardia the patient does have a history of. Patient is on metoprolol for atrial fibrillation and states that they have made adjustments in her dosing due to bradycardia in the past. No symptoms of bradycardia at this time. Laboratory studies are all within acceptable limits including troponin undetectable. Patient's urinalysis is concerning for UTI. Ultrasound revealed no evidence of kidney stone that is passing but does show some kidney stones in the left kidney. Patient also has bilateral very mild renal pelvis dilation, unlikely to be secondary to kidney stone. Chest x-ray unremarkable. On reevaluation, heart rate has returned to normal 60 bpm for the patient. She states that the Toradol she took for the pain has improved her pain and she is currently asymptomatic at this time. We discussed options obtain CT imaging but we both agreed to defer at this time. Recommend follow-up with her PCP as well as return to the ER if any worsening symptoms. She will be started on Macrobid and given a dose of Rocephin prior to discharge for UTI. She was in agreement this plan. I will provide the patient with a prescription for Macrobid. I instructed the patient to follow up with their PCP in the next 1-3 days. I provided contact information for follow up with urology. I explained that the patient should return to the emergency department if they experience any worsening symptoms. Strict return precautions were discussed with the patient. The patient expressed understanding of these instructions. I answered all questions that the patient had. The patient was discharged home in good condition with their prescriptions and follow up information. Undiagnosed new problem with uncertain prognosis? @ -No Drug Therapy requiring intensive monitoring for toxicity (Heparin, Nitro, Insulin, Cardizem)? @ -No Were any procedures done? @ -No Diagnosis/symptom? @ -UTI Acute, or Chronic, or Acute on Chronic? @ -Acute Uncomplicated (without systemic symptoms) or Complicated (systemic symptoms)? @ -Uncomplicated Side effects of treatment? @ -No Exacerbation, Progression, or Severe Exacerbation? @ -No Poses a threat to life or bodily function? How? (Chest pain, [place], [place], pneumonia, PE, COPD, DKA, ARF, appy, cholecystitis, CVA, Diverticulitis, Homicidal, Suicidal, threat to staff... and all critical care pts) @ -Unlikely at this time Diagnosis/symptom? @ -Sinus bradycardia Acute, or Chronic, or Acute on Chronic? @ -Chronic Uncomplicated (without systemic symptoms) or Complicated (systemic symptoms)? @ -Uncomplicated Side effects of treatment? @ -None Exacerbation, Progression, or Severe Exacerbation] @ -No Poses a threat to life or bodily function? @ -Unlikely at this time - Lab Data Result diagrams: 06/27/24 13:03 06/27/24 13:03 Lab Results 06/27/24 06/27/24 06/27/24 Range/Units 12:55 13:03 13:03 WBC 8.54 (4.50-10.00) 10*3/uL RBC 4.02 L (4.10-5.20) 10*6/uL Hgb 11.2 L (12.0-15.0) g/dL Hct 34.9 L (37.2-46.3) % MCV 86.8 (80.0-97.0) fL MCH 27.9 (27.0-32.0) pg MCHC 32.1 (32.0-37.0) g/dL Plt Count 187 (140-440) 10*3/uL MPV 9.8 (9.5-12.2) fL Immature Gran % (Auto) 0.1 % Neutrophils % 57.4 % Lymphocytes % 30.8 % Monocytes % 7.5 % Eosinophils % 4.0 % Basophils % 0.2 % Immature Gran # 0.01 (0.00-0.04) 10*3/uL Neutrophils # 4.90 (1.80-7.70) 10*3/uL Lymphocytes # 2.63 (0.90-5.00) 10*3/uL Monocytes # 0.64 (0.20-1.00) 10*3/uL Eosinophils # 0.34 (0.04-0.35) 10*3/uL Basophils # 0.02 (0.00-0.10) 10*3/uL PT 10.6 (10.0-12.5) sec INR 0.9 (<1.2) APTT 23.3 (22.0-30.0) sec Sodium (137-145) mmol/L Potassium (3.5-5.1) mmol/L Chloride (98-107) mmol/L Carbon Dioxide (22-30) mmol/L Anion Gap mmol/L BUN (7-17) mg/dL Creatinine (0.52-1.04) mg/dL Est GFR (CKD-EPI)AfAm (>60 ml/min/1.73 sqM) Est GFR (CKD-EPI)NonAf (>60 ml/min/1.73 sqM) Glucose (74-99) mg/dL Plasma Lactic Acid Anton (0.7-2.0) mmol/L Calcium (8.4-10.2) mg/dL Magnesium (1.6-2.3) mg/dL Total Bilirubin (0.2-1.3) mg/dL AST (14-36) U/L ALT (4-34) U/L Alkaline Phosphatase (38-126) U/L Troponin I (0.000-0.034) ng/mL Total Protein (6.3-8.2) g/dL Albumin (3.5-5.0) g/dL TSH (0.465-4.680) mIU/L Urine Color Yellow Urine Appearance Cloudy H (Clear) Urine pH 5.0 (5.0-8.0) Ur Specific [place] 1.029 (1.001-1.035) Urine Protein Trace H (Negative) Urine Glucose (UA) Negative (Negative) Urine Ketones Negative (Negative) Urine Blood Trace H (Negative) Urine Nitrite Negative (Negative) Urine Bilirubin Negative (Negative) Urine Urobilinogen 2.0 (<2.0) mg/dL Ur Leukocyte Esterase Small H (Negative) Urine RBC 5 (0-5) /hpf Urine WBC 17 H (0-5) /hpf Ur Squamous Epith Cells 1 (0-4) /hpf Calcium Oxalate Crystal Many H (None) /hpf Hyaline Casts 43 H (0-2) /lpf Urine Mucus Rare H (None) /hpf 06/27/24 06/27/24 06/27/24 Range/Units 13:03 13:03 13:03 WBC (4.50-10.00) 10*3/uL RBC (4.10-5.20) 10*6/uL Hgb (12.0-15.0) g/dL Hct (37.2-46.3) % MCV (80.0-97.0) fL MCH (27.0-32.0) pg MCHC (32.0-37.0) g/dL Plt Count (140-440) 10*3/uL MPV (9.5-12.2) fL Immature Gran % (Auto) % Neutrophils % % Lymphocytes % % Monocytes % % Eosinophils % % Basophils % % Immature Gran # (0.00-0.04) 10*3/uL Neutrophils # (1.80-7.70) 10*3/uL Lymphocytes # (0.90-5.00) 10*3/uL Monocytes # (0.20-1.00) 10*3/uL Eosinophils # (0.04-0.35) 10*3/uL Basophils # (0.00-0.10) 10*3/uL PT (10.0-12.5) sec INR (<1.2) APTT (22.0-30.0) sec Sodium 137 (137-145) mmol/L Potassium 4.9 (3.5-5.1) mmol/L Chloride 107 (98-107) mmol/L Carbon Dioxide 23 (22-30) mmol/L Anion Gap 7 mmol/L BUN 29 H (7-17) mg/dL Creatinine 0.82 (0.52-1.04) mg/dL Est GFR (CKD-EPI)AfAm 86 (>60 ml/min/1.73 sqM) Est GFR (CKD-EPI)NonAf 74 (>60 ml/min/1.73 sqM) Glucose 93 (74-99) mg/dL Plasma Lactic Acid Anton 1.2 (0.7-2.0) mmol/L Calcium 10.0 (8.4-10.2) mg/dL Magnesium 1.7 (1.6-2.3) mg/dL Total Bilirubin 0.5 (0.2-1.3) mg/dL AST 22 (14-36) U/L ALT 17 (4-34) U/L Alkaline Phosphatase 63 (38-126) U/L Troponin I <0.012 (0.000-0.034) ng/mL Total Protein 6.7 (6.3-8.2) g/dL Albumin 4.2 (3.5-5.0) g/dL TSH 1.650 (0.465-4.680) mIU/L Urine Color Urine Appearance (Clear) Urine pH (5.0-8.0) Ur Specific [place] (1.001-1.035) Urine Protein (Negative) Urine Glucose (UA) (Negative) Urine Ketones (Negative) Urine Blood (Negative) Urine Nitrite (Negative) Urine Bilirubin (Negative) Urine Urobilinogen (<2.0) mg/dL Ur Leukocyte Esterase (Negative) Urine RBC (0-5) /hpf Urine WBC (0-5) /hpf Ur Squamous Epith Cells (0-4) /hpf Calcium Oxalate Crystal (None) /hpf Hyaline Casts (0-2) /lpf Urine Mucus (None) /hpf - EKG Data -: EKG Interpreted by Me EKG Comments: 12-lead Electrocardiogram Interpretation Note EKG was reviewed and interpreted by myself. 12-lead ECG performed at 1228 is interpreted by me as revealing sinus bradycardia at a rate of 36 beats per minute. Oley is normal. AK interval is 173 ms, QRS durations 88 ms, QTc is 379 ms.. There were no ST or T wave abnormalities to suggest myocardial ischemia or injury. R wave progression across the precordium was satisfactory. By my interpretation this EKG is non-diagnostic for acute ischemia. Disposition Clinical Impression: Chronic sinus bradycardia, UTI (urinary tract infection) Disposition: HOME SELF-CARE Condition: Good Instructions (If sedation given, give patient instructions): Urinary Tract Infection in Women (ED) Prescriptions: Nitrofurantoin Monohyd/M-Cryst [Macrobid] 100 mg PO Q12HR 7 Days #14 cap Is patient prescribed a controlled substance at d/c from ED?: No Referrals: Harish Ruth DO [Primary Care Provider] - 1-2 days Miles Barlow MD [STAFF PHYSICIAN] - 1-2 days Time of Disposition: 15:19
[2024-06-27] MEDS: cefTRIAXone IN SWFI 1,000 MG/10 ML SYRINGE IVP STA (15:30)
[2024-06-27] MEDS: NITROFURANTOIN MONOHYD/M-CRYST 100 MG CAP PO STA (15:30)
[2024-06-27 15:32] VITALS: BP 167/68; PULSE 62
== END 2024-06-27 15:36 | disposition home or self-care (01) ==
LOC: EC 12:11
DX: N39.0 Urinary tract infection, site not specified (principal); R00.1 Bradycardia, unspecified; Z88.1 Allergy status to other antibiotic agents; Z88.2 Allergy status to sulfonamides
CPT/HCPCS: 36415; 93005; 80053; 83605; 83735; 84443; 84484; 85025; 85610; 85730; 81001; 87086; 71046; 76770; 99285; 96374; 96375; 96361; J0696; J1885